=== PATIENT | male | born 1950 | race Caucasian/White ===

== ENCOUNTER → 2023-05-31 15:23 | Outpatient (REF) | payer MEDICARE, SELFPAY ==
[2023-05-31 19:41] LABS: Urine Albumin Negative (Neg - Trace); Urine Bilirubin Negative (Negative); Urine Character Clear (Clear); Urine Color Yellow; Urine Glucose Negative (Negative); Urine Ketone Negative (Negative); Urine Leukocyte Negative (Negative); Urine Nitrite Negative (Negative); Urine Occult Blood Negative (Negative); Urine Urobilinogen Negative (Neg - 1+)
== END ==
LOC: CLAB 15:23
PROVIDERS: ATTENDING PHYSICIAN Family Medicine
DX: N39.0 Urinary tract infection, site not specified (principal)
CPT/HCPCS: 81003

== ENCOUNTER → 2023-07-26 17:10 | Outpatient (REF) | payer MEDICARE, SELFPAY | LOC: REG 17:10 | PROVIDERS: ATTENDING PHYSICIAN Urology; FAMILY PHYSICIAN Family Medicine | DX: R97.20 Elevated prostate specific antigen [PSA] (principal) | CPT/HCPCS: 84153; 84154 ==

== ENCOUNTER → 2023-09-18 15:06 | Emergency (ER) | payer MEDICARE, SELFPAY ==
[2023-09-18 15:12] VITALS: BP 179/75
[2023-09-18 15:29] LABS: % Basophils 0.6 % (0-2); % Eosinophils 1.9 % (0-6); % Immature Granulocytes 0.4 % (0-0.5); % Lymphocytes 24.4 % (20.5-51.1); % Monocytes 11.9 % (1.7-9.3); % Neutrophils 60.8 % (42.2-75.2); Absolute Basophils 0.1 10^3/uL (0-0.2); Absolute Eosinophils 0.2 10^3/uL (0-0.7); Absolute Immature Granulocytes 0.1 10^3/uL (0-0.05); Absolute Lymphocytes 2.9 10^3/uL (1.2-3.4); Absolute Monocytes 1.4 10^3/uL (0.1-0.6); Absolute Neutrophils 7.3 10^3/uL (1.4-6.5); Hematocrit 29.2 % (39.0-52.0); Hemoglobin 9.4 g/dL (13.0-18.0); Mean Corp Hgb Conc. 32.2 g/dL (33.0-37.0); Mean Corpuscular Hgb 25.5 pg (27.0-31.0); Mean Corpuscular Volume 79.1 fL (80.0-94.0); Mean Platelet Volume 8.6 fL (7.4-10.4); Nucleated Red Blood Cells % 0 % (-); Platelet Count 312 10^3/uL (130-400); Red Blood Cell Count 3.69 10^6/uL (4.70-6.10); Red Cell Dist. Width 15.1 % (11.5-14.5); White Blood Cell Count 12.1 10^3/uL (4.8-10.8)
[2023-09-18 15:45] LABS: Erythrocyte Sed Rate 41 mm/hour (0-20)
--- NOTE | 2023-09-18 16:07 | ED.MUSCINJ ---
HPI-Injury
General
Chief Complaint: Musculo-Skeletal Complaint
Source: patient
Exam Limitations: none
Time Seen by Provider: 09/18/23 15:46
Nursing documentation reviewed up to this point in time: agreed with
History of Present Illness-Injury
Initial Injury comments:
73 yo male with hx of HTN, bilateral leg chronic wounds, presents for gradually increasing swelling and pain right knee. Denies fever/chills.
He also states over past week, he has had redness and swelling and pain in right hand with history of gout
Past History
Past History
ED Past Medical History: Cancer (skin cancer left calf), HTN and Other (PVDm Bilateral lower leg wounds)
ED Past Surgical History: Orthopedic (Right knee surgery) and Other (Right facial reconstructioin)
Social History
Tobacco: Former smoker
Alcohol: Daily (Beer 5)
Drug: None
Personal: Other (Seperated)
Living: alone
Employment: Employed
Review of Systems
Review of Systems
Allergies reviewed?: Yes
All Other Systems: ROS reviewed and negative except as documented in HPI and ROS
Constitutional: Denies fever or chills
Musculoskeletal: Reports other (Right knee pain and swelling)
Skin: Reports other (Chronic bilateral lower extremity wounds dressings intact)
Phy Exam
Physical Exam
Physical Exam:
PHYSICAL EXAMINATION:
General: no apparent distress, not acutely ill
Neuro: alert and oriented.
Psychiatric: well kept. interactive and cooperative
Musculoskeletal: Moves with ease. Limited range of motion of right knee, significant swelling, no redness or warmth. Mild swelling right hand fingers, mild erythema, tenderness. few tophus protrusions. Distal n/v intact.
Skin: Warm, pink.. Both lower legs are wrapped in dressings
Injury Course
Orders/Labs/Results
Orders:
Orders
09/18/23 15:15
CR Knee- Right 4 Or More View* Urgent
Comment:
Reason For Exam: pain
09/18/23 15:21
Complete Blood Count/With Diff Urgent
Comprehensive Metabolic Panel Urgent
Sed Rate [Erythrocyte Sed Rate] Urgent
Uric Acid Urgent
09/18/23 16:12
Body Fluid Cell Count Urgent
What is the Body Fluid: joint
Date Specimen was Collected: 09/18/23
Time Specimen was Collected: 16:07
Comment: with DIFF
Body Fluid Crystals Urgent
What is the Body Fluid: joint
Date Specimen was Collected: 09/18/23
Time Specimen was Collected: 16:07
Body Fluid Glucose Urgent
Fluid Source: Other
Other Source: R knee
Date Specimen was Collected: 09/18/23
Time Specimen was Collected: 16:08
Fluid Culture with Gram Stain Urgent
EUGENIO Source: Joint Fluid
Specimen Description:
Date Specimen was Collected: 09/18/23
Time Specimen was Collected: 16:08
09/18/23 16:27
Knee Immobilizer Right-Treatme ONCE
09/18/23 17:49
Colchicine 1.2 mg PO NOW STA
Abnormal Lab Results
09/18/23
15:21
WBC 12.1 H 10^3/uL
(4.8-10.8)
RBC 3.69 L 10^6/uL
(4.70-6.10)
Hgb 9.4 L g/dL
(13.0-18.0)
Hct 29.2 L %
(39.0-52.0)
MCV 79.1 L fL
(80.0-94.0)
MCH 25.5 L pg
(27.0-31.0)
MCHC 32.2 L g/dL
(33.0-37.0)
RDW 15.1 H %
(11.5-14.5)
Abs Immat Gran (auto) 0.1 H 10^3/uL
(0-0.05)
Absolute Neuts (auto) 7.3 H 10^3/uL
(1.4-6.5)
Absolute Monos (auto) 1.4 H 10^3/uL
(0.1-0.6)
Monocytes % 11.9 H %
(1.7-9.3)
ESR 41 H mm/hour
(0-20)
Sodium 129 L mmol/L
(135-145)
Glucose 141 H mg/dl
(70-99)
Total Protein 5.8 L g/dl
(6.3-8.2)
Albumin 3.3 L g/dl
(3.5-5.0)
09/18/23 15:21
09/18/23 15:21
Procedures
Incision/Drainage/Joint Aspiration
Right Lateral Knee:
Anethesia: 1% Lidocaine with Epi
Preparation: cleaned with alcohol wipe
Type of procedure: aspiration
Nature of site: other (suprapatellar effusion)
How much fluid was obtained?: number in mls (120)
Fluid description: straw colored
Treatment: bandaid applied
MDM/Problems Addressed
Differential Diagnosis Includes:
Osteoarthritis, gout, septic joint
MDM/Problems Addressed:
73 yo male with hx of HTN, bilateral leg chronic wounds, presents for gradually increasing swelling and pain right knee. Denies fever/chills.
He also states he has had swelling, redness and pain in his right hand. History of gout.
Xray R knee: Initially read by this examiner: Large suprapatellar effusion
4:12 PM:
CBC: WBC 12.1. Hemoglobin 9.4, his baseline
CMP:unremarkable
ESR: Mildly elevated at 41
Uric acid WNL
5:30 p.m.
After draining knee, able to bend with ease, no redness or warmth, do not suspect septic joint.
Knee joint fluid results consistent with inflammation, not infection. Monosodium urate crystals present.
Pt taking Allopurinol daily for gout
Will add colchicine
Kai wrap applied, referred to Rheumatology for gout, orthopedics for knee effusion.
Pt ambulated out with mild limp, declined wheelchair.
*Critical Care Note
Total Time (30-74mins, 75-104mins- exclusive of procedures): Not Applicable
ED Attending Note
-
Portions of this chart may have been created with voice recognition software.� Occasional wrong word or��sound alike� substitutions may have occurred due to the inherent limitations of voice recognition software.
Discharge Plan
Departure
Patient Disposition: Home (Routine Discharge)
Date of Disposition: 09/18/23
Time of Disposition: 17:49
Patient with high blood pressure during this ER visit?: Yes
Condition: Good
Discharge Problem:
Effusion of right knee, Gout
Instructions: Knee Immobilizer (DC), Low Purine Diet, Swollen Joints (DC), Gout ED
Prescriptions:
New
colchicine 0.6 mg capsule
0.6 mg PO BID Qty: 20 0RF
No Action
aspirin 81 mg Tablet,Delayed Release (Dr/Ec)
81 mg PO DAILY Qty: 90 0RF
atenolol 50 mg Tablet
50 mg PO DAILY
therapeutic multivitamin Tablet
1 tab PO DAILY
ascorbic acid (vitamin C) [Vitamin C] 500 mg Tablet
500 mg PO DAILY
clobetasol 0.05 % Ointment
1 applic TOPICAL BID
Patient Comments:
02/06/23 patient applies ointment to the outer area of the wound on both legs.
rosuvastatin 40 mg Tablet
40 mg PO DAILY
gabapentin 400 mg Capsule
400 mg PO TID 30 Days Qty: 90 0RF
cephalexin 500 mg Capsule
500 mg PO QID 5 Days Qty: 20 0RF
losartan 25 mg Tablet
25 mg PO DAILY 30 Days Qty: 30 0RF
prednisone 10 mg Tablet
See Rx Instructions .ROUTE .COMPLEX Qty: 36 0RF
Rx Instructions:
Take By Mouth:
20 mg daily x13 days, 10 mg daily till seen by rheum
cephalexin 500 mg capsule
500 mg PO TID 5 Days Qty: 15 0RF
Referrals:
Yasmani Castillo MD [Active] - Call in 1-3 days for appt
Norma Cortez DO [Family Provider] -
Lamont Cooley MD [Active] - Next open appointment
Stand Alone Forms: Return to Work
Activity Restrictions/Additional Instructions:
As we discussed, wear the knee immobilizer when up and around until your knee feels better. You may remove it at bedtime.
If the knee feels a lot better you can stop wearing it.
See the orthopedic doctor for recheck in 7-14 days.
Rest with the foot elevated to the level of your heart as much as you can in the next 2 days.
I sent a prescription for Colchicine to your pharmacy. Pick it up today and take one pill this evening. Then take it twice a day until the flare improves
Call and make appointment with the Chief Technician [facility] for your gout.
Interventions
Interventions:
*Risk Screen - Suicide Last Done: 09/18/23 15:12
*General Assessment Last Done: 09/18/23 15:12
*Neglect/Abuse Screening Last Done: 09/18/23 15:12
Discharge Date and Time
Print Language: TURKMEN
[2023-09-18 16:09] LABS: ALT (SGPT) 11 U/L (0-50); AST (SGOT) 25 U/L (17-59); Albumin 3.3 g/dl (3.5-5.0); Alkaline Phosphatase 88 U/L (38-126); Blood Urea Nitrogen 9 mg/dl (9-20); Calcium 9.1 mg/dl (8.4-10.2); Carbon Dioxide 24 mmol/L (22-30); Chloride 98 mmol/L (98-107); Glucose 141 mg/dl (70-99); Potassium 4.3 mmol/L (3.5-5.1); Sodium 129 mmol/L (135-145); Total Bilirubin 0.9 mg/dl (0.2-1.3); Total Protein 5.8 g/dl (6.3-8.2); Uric Acid 4.6 mg/dl (3.5-8.5); eGFR > 60.00
[2023-09-18 16:44] LABS: Body Fluid Glucose 90 mg/dl
[2023-09-18 16:51] LABS: Body Fluid WBC 41200 /CUMM
[2023-09-18 16:52] LABS: Body Fluid Mononuclear 7.7 %; Body Fluid Polymorphonuclear 92.3 %
[2023-09-18 16:55] LABS: Body Fluid Second Tech FB
[2023-09-18] MEDS: COLCHICINE 1.19999999999999996 MG PO (17:55)
== END | disposition home or self-care (01) ==
LOC: EMR 15:06
PROVIDERS: Emergency Medicine; Registered Nurse; FAMILY PHYSICIAN Family Medicine
DX: M25.461 Effusion, right knee (principal); M25.561 Pain in right knee; M79.641 Pain in right hand; M10.9 Gout, unspecified; I10 Essential (primary) hypertension; D89.89 Other specified disorders involving the immune mechanism, not elsewhere classified; Z87.891 Personal history of nicotine dependence; Z85.828 Personal history of other malignant neoplasm of skin; Z88.6 Allergy status to analgesic agent; Z88.8 Allergy status to other drugs, medicaments and biological substances
CPT/HCPCS: 20610; 99283; 73564; 80053; 82945; 84550; 85025; 85652; 87015; 87070; 87205; 89051; 89060

== ENCOUNTER 2023-10-15 15:50 | Emergency (ER) | payer MEDICARE, SELFPAY ==
[2023-10-15 15:53] VITALS: BP 165/81
--- NOTE | 2023-10-15 17:32 | ED.MUSCINJ ---
HPI-Injury
General
Chief Complaint: Musculo-Skeletal Complaint
Source: patient
Exam Limitations: none
Time Seen by Provider: 10/15/23 16:00
Nursing documentation reviewed up to this point in time: agreed with
History of Present Illness-Injury
Initial Injury comments:
73 yo male with recurrent right knee effusion here requesting drainage. Last drained by this examiner. No known injury. Did not follow up with orthopedics since last effusion.
Denies fever.
Hx PVD with significant bilateral LE wounds followed at [facility].
Past History
Past History
ED Past Medical History: Cancer (skin cancer left calf), HTN and Other (PVDm Bilateral lower leg wounds)
ED Past Surgical History: Orthopedic (Right knee surgery) and Other (Right facial reconstructioin)
Social History
Tobacco: Former smoker
Alcohol: Daily (Beer 5)
Drug: None
Personal: Other (Seperated)
Living: alone
Employment: Employed
Review of Systems
Review of Systems
Allergies reviewed?: Yes
All Other Systems: ROS reviewed and negative except as documented in HPI and ROS
Constitutional: Denies fever
Musculoskeletal: Reports joint swelling (right knee)
Skin: Reports other (chronic bilateral LE wounds)
Musculoskeletal Injury Exam
Musculoskeletal Injury Exam
Right Knee:
Pain with Movement?: Moderate
Tender to palpation?: Moderate
Soft tissue swelling?: Moderate
Joint effusion?: Moderate
Joint instability?: No
Range of motion: Limited
Distal skin color and temperature: normal-warm & good color (Chronic bilateral lower extremity wounds.)
Capillary Refill: normal
Normal distal neurovascular exam?: Yes
Phy Exam
Physical Exam
Physical Exam:
PHYSICAL EXAMINATION:
General: no apparent distress, not acutely ill
Neuro: alert and oriented.
Psychiatric: well kept. interactive and cooperative
Musculoskeletal: Right knee moderate swollen, tender, no redness or warmth. Patient is ambulating well.
Skin: Warm, pink. Both lower extremities are wrapped with special treatments for chronic leg wounds.
Procedures
Incision/Drainage/Joint Aspiration
Right Lateral Knee:
Anethesia: 1% Lidocaine with Epi
Preparation: cleaned with alcohol wipe
Type of procedure: drain
Description of abscess: involves one area
How much fluid was obtained?: number in mls (65)
Fluid description: clear and straw colored
Treatment: bandaid applied (Kai wrap applied)
MDM/Problems Addressed
Differential Diagnosis Includes:
inflammatory vs infection knee effusion
MDM/Problems Addressed:
73 yo male with recurrent right knee effusion here requesting drainage. Last drained by this examiner. No known injury. Did not follow up with orthopedics since last effusion.
Denies fever.
Hx PVD with significant bilateral LE wounds followed at [facility].
Afebrile
Patient tolerated procedure well. Kai wrap applied. Patient ambulated out at discharge.
The knee fluid was clear straw-colored. This examiner drained his knee on 09/17 and the fluid was inflammatory, no infectious, no infectious symptoms now, no need to repeat fluid evaluation.
*Critical Care Note
Total Time (30-74mins, 75-104mins- exclusive of procedures): Not Applicable
ED Attending Note
-
Portions of this chart may have been created with voice recognition software.� Occasional wrong word or��sound alike� substitutions may have occurred due to the inherent limitations of voice recognition software.
Discharge Plan
Departure
Patient Disposition: Home (Routine Discharge)
Date of Disposition: 10/15/23
Time of Disposition: 16:39
Patient with high blood pressure during this ER visit?: No
Condition: Fair
Discharge Problem:
Effusion of right knee
Prescriptions:
No Action
aspirin 81 mg Tablet,Delayed Release (Dr/Ec)
81 mg PO DAILY Qty: 90 0RF
atenolol 50 mg Tablet
50 mg PO DAILY
therapeutic multivitamin Tablet
1 tab PO DAILY
ascorbic acid (vitamin C) [Vitamin C] 500 mg Tablet
500 mg PO DAILY
clobetasol 0.05 % Ointment
1 applic TOPICAL BID
Patient Comments:
02/06/23 patient applies ointment to the outer area of the wound on both legs.
rosuvastatin 40 mg Tablet
40 mg PO DAILY
gabapentin 400 mg Capsule
400 mg PO TID 30 Days Qty: 90 0RF
cephalexin 500 mg Capsule
500 mg PO QID 5 Days Qty: 20 0RF
losartan 25 mg Tablet
25 mg PO DAILY 30 Days Qty: 30 0RF
prednisone 10 mg Tablet
See Rx Instructions .ROUTE .COMPLEX Qty: 36 0RF
Rx Instructions:
Take By Mouth:
20 mg daily x13 days, 10 mg daily till seen by rheum
cephalexin 500 mg capsule
500 mg PO TID 5 Days Qty: 15 0RF
colchicine 0.6 mg capsule
0.6 mg PO BID Qty: 20 0RF
Referrals:
Yasmani Castillo MD [Active] - Next open appointment
Norma Cortez DO [Family Provider] -
Activity Restrictions/Additional Instructions:
As we discussed, wear the Kai wrap as needed for swelling.
Make appointment to see the orthopedic doctor within the next couple of weeks.
Interventions
Interventions:
*Nursing Disposition Last Done: 10/15/23 17:04
Discharge Date and Time
Discharge Date/Time: 10/15/23 17:05
Print Language: [place]AST [place]
== END 2023-10-15 17:05 | disposition home or self-care (01) ==
LOC: EMR 15:50
PROVIDERS: EMERGENCY PHYSICIAN Emergency Medicine; FAMILY PHYSICIAN Family Medicine
DX: M25.461 Effusion, right knee (principal); I10 Essential (primary) hypertension; Z85.828 Personal history of other malignant neoplasm of skin; Z87.891 Personal history of nicotine dependence
CPT/HCPCS: 99282; 20610

== ENCOUNTER 2023-11-13 02:00 | Inpatient (IN) | payer MEDICARE, SELFPAY ==
[2023-11-12 22:39] VITALS: BMI 29.3
[2023-11-12 22:42] VITALS: BP 163/71
--- NOTE | 2023-11-12 22:56 | ED.GENMED ---
History of Present Illness
General
Chief Complaint: Fall
Source: patient and previous hospital records (Previous ED visits, twice in September with complaints of recurrent right knee effusion requiring arthrocentesis. Knee effusion related to gout flare)
Exam Limitations: none
Time Seen by Provider: 11/12/23 22:53
Nursing documentation reviewed up to this point in time: agreed with
History of Present Illness
History of Present Illness:
This is a 73-year-old gentleman with history of hypertension, gout, peripheral vascular disease with chronic ulcerated wounds and chronic edema bilateral lower extremities. Follows with specialist at [place]. 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 and while on duty tonight he states he slipped on a wet patch in a hallway, fell onto his right side injuring his right hip. He also states he struck the top of his head perhaps on the wall but admits this was a glancing blow. No loss of
consciousness. He complains of severe pain right hip, unable to sit up or stand. He denies back pain or neck pain, denies headache, no chest pain or abdominal pain. Right hip pain is worse with attempting to reposition from his right side to
supine, worse with movement of his right hip. His position of comfort is lying on his right side.
No prior history of hip problems.
He denies blood thinners including denies taking aspirin, anticoagulants, antiplatelet medications.
He is currently taking 2 different antibiotics for more recent progression of bilateral lower extremity nonhealing ulcerated wounds. He started these antibiotics perhaps 1-1/2 weeks ago and does admit to moderate improvement especially over the
past 1 to 2 days. He has not had a fever.
He is due for follow-up with his specialist at [place] this week.
Past History
Past History
ED Past Medical History: Cancer (skin cancer left calf), HTN, Other (PVD Bilateral lower leg wounds, peripheral neuropathy, chronic peripheral edema) and Other (Gout)
ED Past Surgical History: Orthopedic (Right knee surgery) and Other (Right facial reconstructioin)
Social History
Tobacco: Former smoker
Alcohol: Daily (Beer 5)
Drug: None
Personal: Other (Seperated)
Living: alone
Employment: Employed ([employer])
Family History
Family History: Other (Noncontributory)
Phy Exam
Physical Exam
Physical Exam:
GENERAL: 73-year-old overweight gentleman appears his stated age. Lying supine partially on his right side, position of comfort. Appears in moderate distress related to pain. Easily communicative.
EYE: pupils equal and reactive. Extraocular muscles intact. The head is normocephalic, atraumatic.
NECK: Supple, no midline bony tenderness. Full range of motion without difficulty nor pain.
ENT: posterior pharynx is clear, oral mucosa is moist. No rhinorrhea, no epistaxis.
CARDIAC: Regular rate and rhythm. no murmur.
LUNGS: Clear breath sounds bilaterally, no acute respiratory distress, no wheezes/rales/rhonchi
ABDOMEN: Rotund, soft, nondistended, without focal tenderness, no r/g, no cvat. normoactive BS.
BACK: No midline bony tenderness. No palpable bony pelvic tenderness.
NEUROLOGICAL: Alert and oriented x3, no focal neuro deficits.
SKIN: Warm and dry, normal color, venous stasis ulcers bilateral lower legs.
MUSCULOSKELETAL: Severe pain about right hip with markedly reduced range of motion of hip related to pain. Chronic venous stasis edema bilateral lower extremities with venous stasis ulcers bilateral lower legs.
PSYCH: Normal and appropriate interaction.
Course
Orders/Labs/Results
Orders:
Orders
11/12/23 22:55
Urinalysis Reflex To Culture Urgent
HYDROmorphone [Dilaudid] 0.5 mg IV NOW STA
CR Hip - RT w/wo Pel 2-3 Vw* Urgent
Comment:
Reason For Exam: fall, right lat hip pain
Include a pelvis x-ray?: Yes
11/12/23 23:08
Type+Screen Urgent
Complete Blood Count/With Diff Urgent
Comprehensive Metabolic Panel Urgent
PTT Urgent
Prothrombin Time Urgent
11/12/23 23:11
EKG [Electrocardiogram (*1)] Urgent
Reason for Study: Vertigo / Dizzy
EKG- Treatment ONCE
Abnormal Lab Results
11/12/23
23:08
WBC 13.8 H 10^3/uL
(4.8-10.8)
RBC 3.56 L 10^6/uL
(4.70-6.10)
Hgb 9.0 L g/dL
(13.0-18.0)
Hct 27.2 L %
(39.0-52.0)
MCV 76.4 L fL
(80.0-94.0)
MCH 25.3 L pg
(27.0-31.0)
RDW 18.0 H %
(11.5-14.5)
Abs Immat Gran (auto) 0.1 H 10^3/uL
(0-0.05)
Absolute Neuts (auto) 8.6 H 10^3/uL
(1.4-6.5)
Absolute Lymphs (auto) 3.6 H 10^3/uL
(1.2-3.4)
Absolute Monos (auto) 1.2 H 10^3/uL
(0.1-0.6)
Immature Gran % 0.7 H %
(0-0.5)
APTT 35.9 H Sec
(23.4-35.0)
Sodium 131 L mmol/L
(135-145)
Total Protein 5.8 L g/dl
(6.3-8.2)
Albumin 3.3 L g/dl
(3.5-5.0)
11/12/23 23:08
11/12/23 23:08
Vital Signs
Initial and Last Documented VS:
Initial Vital Signs
Temp Pulse Resp BP Pulse Ox
97.6 F 81 18 163/71 100
11/12/23 22:42 11/12/23 22:42 11/12/23 22:42 11/12/23 22:42 11/12/23 22:42
Last Documented Vital Signs
Temp Pulse Resp BP Pulse Ox
97.6 F 80 9 165/66 99
11/12/23 22:42 11/13/23 00:00 11/13/23 00:00 11/13/23 00:00 11/13/23 00:00
MDM/Problems Addressed
Differential Diagnosis Includes:
Significant concern for right hip fracture/pelvis fracture.
Admits to striking his head but mildly and no evidence of scalp trauma. Not maintained on anticoagulants. No loss of consciousness. No focal neurodeficit. No indication for CT of the head.
Will medicate for pain and plan for right hip/pelvis x-ray.
Chronic conditions affecting care: Other (Chronic venous stasis ulcers bilateral lower extremities.)
*Radiology
Radiology exam reviewed: radiology read reviewed
*Pulse Oximetry
Patient hypoxic: no
*EKG
Interpreted by ED Provider?: Yes
Comparison EKG: no comparison EKG present
Rate: normal
Rhythm: sinus
[place]: normal axis
Interval: normal interval
QRS Pattern: normal QRS
Ischemia: no ischemia
*Critical Care Note
Total Time (30-74mins, 75-104mins- exclusive of procedures): Not Applicable
Update Note
Update Note:
X-ray shows right hip fracture.
Will admit to hospitalist service and plan for orthopedic consult.
Orthopedics notified via [place] text.
ED Attending Note
-
Portions of this chart may have been created with voice recognition software.� Occasional wrong word or��sound alike� substitutions may have occurred due to the inherent limitations of voice recognition software.
Discharge Plan
Departure
Patient Disposition: Admit
Date of Disposition: 11/13/23
Time of Disposition: 00:41
Admit to doctor: Danny
Presentation/result/management discussed w/ accepting MD/DO: Hospitalist
Condition: Fair
Discharge Problem:
Closed fracture of right hip, Chronic venous stasis ulcers b/l LE's
Prescriptions:
No Action
aspirin 81 mg Tablet,Delayed Release (Dr/Ec)
81 mg PO DAILY Qty: 90 0RF
atenolol 50 mg Tablet
50 mg PO DAILY
therapeutic multivitamin Tablet
1 tab PO DAILY
ascorbic acid (vitamin C) [Vitamin C] 500 mg Tablet
500 mg PO DAILY
clobetasol 0.05 % Ointment
1 applic TOPICAL BID
Patient Comments:
02/06/23 patient applies ointment to the outer area of the wound on both legs.
rosuvastatin 40 mg Tablet
40 mg PO DAILY
gabapentin 400 mg Capsule
400 mg PO TID 30 Days Qty: 90 0RF
cephalexin 500 mg Capsule
500 mg PO QID 5 Days Qty: 20 0RF
losartan 25 mg Tablet
25 mg PO DAILY 30 Days Qty: 30 0RF
prednisone 10 mg Tablet
See Rx Instructions .ROUTE .COMPLEX Qty: 36 0RF
Rx Instructions:
Take By Mouth:
20 mg daily x13 days, 10 mg daily till seen by rheum
cephalexin 500 mg capsule
500 mg PO TID 5 Days Qty: 15 0RF
colchicine 0.6 mg capsule
0.6 mg PO BID Qty: 20 0RF
Interventions
Interventions:
*Risk Screen - Suicide Last Done: 11/12/23 22:42
*General Assessment Last Done: 11/12/23 22:42
*Neglect/Abuse Screening Last Done: 11/12/23 22:42
ED- Fall Risk Assessment Last Done: 11/12/23 22:42
*ED COVID-19 Vaccine History Last Done: 11/12/23 22:42
ED-Musculoskeletal Assessment Last Done: 11/12/23 22:50
ED- Neurological Assessment Last Done: 11/12/23 22:50
Discharge Date and Time
Print Language: SETS[place]
[2023-11-12] MEDS: DILAUDID 0.5 MG IV (23:15)
[2023-11-12 23:19] LABS: % Basophils 0.5 % (0-2); % Eosinophils 2.7 % (0-6); % Immature Granulocytes 0.7 % (0-0.5); % Lymphocytes 25.8 % (20.5-51.1); % Monocytes 8.5 % (1.7-9.3); % Neutrophils 61.8 % (42.2-75.2); Absolute Basophils 0.1 10^3/uL (0-0.2); Absolute Eosinophils 0.4 10^3/uL (0-0.7); Absolute Immature Granulocytes 0.1 10^3/uL (0-0.05); Absolute Lymphocytes 3.6 10^3/uL (1.2-3.4); Absolute Monocytes 1.2 10^3/uL (0.1-0.6); Absolute Neutrophils 8.6 10^3/uL (1.4-6.5); Hematocrit 27.2 % (39.0-52.0); Mean Corp Hgb Conc. 33.1 g/dL (33.0-37.0); Mean Corpuscular Hgb 25.3 pg (27.0-31.0); Mean Corpuscular Volume 76.4 fL (80.0-94.0); Mean Platelet Volume 8.3 fL (7.4-10.4); Nucleated Red Blood Cells % 0 % (-); Platelet Count 313 10^3/uL (130-400); Red Blood Cell Count 3.56 10^6/uL (4.70-6.10); White Blood Cell Count 13.8 10^3/uL (4.8-10.8)
[2023-11-12 23:29] LABS: INR 1.13; PT 14.4 Sec (11.4-14.6)
[2023-11-12 23:30] LABS: ALT (SGPT) 12 U/L (0-50); APTT 35.9 Sec (23.4-35.0); AST (SGOT) 31 U/L (17-59); Albumin 3.3 g/dl (3.5-5.0); Alkaline Phosphatase 103 U/L (38-126); Blood Urea Nitrogen 11 mg/dl (9-20); Calcium 9.1 mg/dl (8.4-10.2); Carbon Dioxide 22 mmol/L (22-30); Chloride 99 mmol/L (98-107); Estimated Creatinine Clearance 70 ml/min; Glucose 93 mg/dl (70-99); Potassium 4.6 mmol/L (3.5-5.1); Sodium 131 mmol/L (135-145); Total Bilirubin 0.4 mg/dl (0.2-1.3); Total Protein 5.8 g/dl (6.3-8.2); eGFR > 60.00
[2023-11-13] VITALS (11 sets, daily range): BP systolic 138–207; BP diastolic 60–95; BMI 27.3
--- NOTE | 2023-11-13 01:48 | HPS.HSE ---
Family Physician
-
Family Physician: Norma Cortez
Chief Complaint
-
Fall, R Hip Pain
History of Present Illness
Patient is a 73y M with PMH significant for chronic venous stasis disease with b/l LE wounds who presents to ED for evaluation after trip and fall this evening. 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
'step down'. He lost his balance and fell. He notes that he hit his head on the wall and landed hard on his R side. He did not lose consciousness. He states that the head impact was a 'glancing blow'. He denies any prodrome of chest pain,
lightheadedness, dizziness, etc.
Patient had significant pain in the R hip after the fall. He was brought to the ED for evaluation where x-rays reveal R hip fracture.
Patient has medical history significant for chronic venous stasis with bilateral LE wounds / venous stasis skin changes.
He is followed by [facility] at [facility].
He had extensive surgery in June 2023 including 5 surgeries (debridement / grafting) in one week. He did require blood transfusion during that hospital stay.
Patient is seen by [facility] weekly. He has dressings replaced once a week at the wound car center. he is due for his next dressing change on Monday.
Patient states that he had significant malodorous drainage about 2 weeks ago. He was started on abx at the wound care center and he remains on them at present.
He cannot recall the names of the abx.
Patient does state that his wounds / symptoms have been improving on these abx.
Medical History
Past Medical History
Past Medical History: Reports Other
Additional Past Medical History:
Chronic Venous Stasis Skin Changes / Ulcerations
ASCVD / PAD
Peripheral Neuropathy
Hypertension
Skin Cancer
Venous Insufficiency
Past Surgical History: Reports Other
Additional Past Surgical History:
Facial Reconstruction
Vein Stripping
LE Debridement / Skin Grafting (June 2023)
Skin Cancer Excision
Social History
Tobacco: Former Smoker (Quit smoking about 40 years ago. Approx 20 pack years total use.)
Alcohol: Daily (Nearly daily EtOH use. Several beers on average.)
Drug: None
Family History
Family History: Other (PGM - DM)
Allergies / Home Medications
Allergies reflects when Allergies were last updated in [facility].
Home Medications with original date entered in [facility]
Allergy/Medication List:
Allergies
Allergy/AdvReac Type Severity Reaction Status Date / Time
acetaminophen Allergy Swelling Verified 11/12/23 22:41
[From Excedrin Extra
Strength]
aspirin Allergy Swelling Verified 11/12/23 22:41
[From Excedrin Back and Body]
caffeine Allergy Swelling Verified 11/12/23 22:41
[From Excedrin Extra
Strength]
calcium carbonate Allergy Unknown Verified 11/12/23 22:41
[From Excedrin Back and Body]
Home Medications
ascorbic acid (vitamin C) 500 mg tablet (Vitamin C) 500 mg PO DAILY Supplement 02/06/23
therapeutic multivitamin 1 tab PO DAILY Supplement 02/06/23
gabapentin 400 mg capsule 600 mg PO DAILY 11/13/23
ibuprofen 200 mg tablet 200 mg PO Q6H PRN increased pain 11/13/23
Review of Systems
-
History Source: Patient
A 12 point ROS was completed and negative except as noted: Yes
Constitutional: Denies Fever, Fatigue or Chills
EENT: Denies Sore Throat
Respiratory: Denies Cough or Trouble Breathing
Cardiac: Denies Chest Pain or Palpitations
Abdomen/GI: Denies Abdominal Pain, Nausea, Vomiting, Diarrhea, Bloody Stools or Black Stools
: Denies Dysuria, Frequency or Flank Pain
Musculoskeletal: Reports Joint Pain and Edema
Skin: Reports Other (Wounds b/l LEs)
Neurological: Denies Dizzy or Headache
Psych: Denies Depression or Anxiety
Physical Exam
Vital Signs
Vital Signs
Temp Pulse Resp BP Pulse Ox
97.6 F 80 9 165/66 99
11/12/23 22:42 11/13/23 00:00 11/13/23 00:00 11/13/23 00:00 11/13/23 00:00
Physical Exam
General: Other (73y M in mild distress due to hip pain.)
HEENT: Moist mucous membranes and PERRLA
Respiratory: Clear; No Wheezes, Rales or Rhonchi
Cardiac: S1/S2 and Regular Rhythm; No Murmur
GI: Soft, Non Tender, Non Distended and Normal Bowel Sounds
Musculoskeletal: Other (RLE externally rotated.)
Skin: Other (Chronic venous stasis skin changes of b/l LEs. Evident areas of ulceration medial ankles and posterior R calf. Dressings not removed.)
Neuro: AO x 3
Laboratory Results
-
11/12/23 23:08
11/12/23 23:08
Laboratory Results
PT 14.4 Sec (11.4-14.6) 11/12/23 23:08
INR 1.13 11/12/23 23:08
APTT 35.9 Sec (23.4-35.0) H 11/12/23 23:08
Total Bilirubin 0.4 mg/dl (0.2-1.3) 11/12/23 23:08
AST 31 U/L (17-59) 11/12/23 23:08
ALT 12 U/L (0-50) 11/12/23 23:08
Alkaline Phosphatase 103 U/L (38-126) 11/12/23 23:08
Impression/Plan
-
A/P: Patient is a 73y M with PMH significant for venous insufficiency and chronic venous stasis skin changes / wound presents to ED after trip and fall with R hip pain.
Right Hip Fracture
- Admit for further evaluation and treatment.
- Pain control, NWB, supportive care overnight.
- Ortho eval in the AM for eventual operative repair.
- Increased risk for complications on the basis of chronic wounds, HTN and anemia.
- Address these issues as noted below.
- Benefits of planned procedure outweigh the potential risks and patient OK to proceed with OR without additional pre-op evaluation(s).
- Post-Op DVT prophylaxis, PT / OT, pain control, etc per Ortho.
Mechanical Fall
- Patient lost his balance when he stepped off a step that he did not know was there.
- No suspicious prodrome, LOC, etc.
- Mild head impact. No current symptoms / complaints in this regard.
- Consider EX[employer] imaging if any changes develop - but low suspicion.
Venous Insufficiency
Chronic Venous Stasis Skin Changes
Chronic B/L LE Wounds
- Recent increase in symptoms improving on PO abx per patient.
- Will cover with IV Vanco / Zosyn for now as patient does not recall current meds.
- Continue abx perioperatively.
- Wound Care evaluation for local care during hospital stay.
- Follow-up with usual wound care physician at [facility] after discharge.
Benign Hypertension
- Patient reports prior h/o hypertension.
- Placed on BP meds but stopped these once his BP improved.
- Pursue adequate pain control.
- IV Hydralazine PRN.
- Suspect he will benefit from standing BP medications to maintain normotension.
Normocytic Anemia
- Hgb = 9 and has been in this range since early 2023.
- Had significant surgery at [facility] in June 2023 and required blood products during that stay.
- No report of any evident blood loss, melena, etc per patient.
- He does take ibuprofen approx 1200mg daily and drinks alcohol on a near-daily basis.
- Heme test stools. PPI daily.
- Check iron studies, etc and replace if needed.
- Consented for blood transfusion which he may require perioperatively.
ASCVD / PAD
- Patient has history of LOS to the [facility].
- He is not currently on ASA - apparently due to allergy.
- No complaints of chest pain. No history of heart disease specifically.
DVT Prophylaxis
- Patient is at elevated risk for DVT given chronic venous disease, LE wounds, injury, immobility, etc.
- No mechanical devices given his LE wounds.
- Hold pharmacologic prophylaxis for now given planned surgery.
- Would recommend pharmacologic prophylaxis be started GERALD post-op when OK with Ortho.
Code Status: Full
[2023-11-13] MEDS: DILAUDID 0.5 MG IV ×4 (02:02→21:30)
--- NOTE | 2023-11-13 04:00 | PTCARENOTE ---
Pt admitted to room 2138 from ED, aaox3, pulled to bed from stretcher with assist x4. Medicated for pain 10/ from R hip. Pt oriented to room and call light. Bladder scanned for 723 cc, unable to void after multiple attempts. Straight cath x1 for
700cc, urine sample collected and sent to lab.
[2023-11-13] MEDS: VANCOCIN 540 MG IV (04:05)
[2023-11-13 05:03] LABS: Urine Albumin Negative (Neg - Trace); Urine Bilirubin Negative (Negative); Urine Character Clear (Clear); Urine Color Yellow; Urine Glucose Negative (Negative); Urine Ketone Trace (Negative); Urine Leukocyte Negative (Negative); Urine Nitrite Negative (Negative); Urine Occult Blood Negative (Negative); Urine Specific Gravity 1.015 (<1.030); Urine Urobilinogen Negative (Neg - 1+)
[2023-11-13] MEDS: ZOSYN 50 IV ×4 (06:26→23:08)
--- NOTE | 2023-11-13 07:33 | W.PN.UPDATE ---
Update Note
Progress Note Update
Patient seen at bedside. Diagnosis and treatment options discuss with patient.
73 yo M with right femoral neck fracture, chronic bilateral lower extremity wounds
No Plans for OR today. Will need OR in the next couple of days.
Plan for NPO at midnight for tentative OR tomorrow pending OR availability
[2023-11-13] MEDS: FOLVITE 1 MG PO (07:59)
[2023-11-13] MEDS: COLACE 100 MG PO ×2 (07:59→20:12)
[2023-11-13] MEDS: MIRALAX 17 GRAMS PO (07:59)
[2023-11-13] MEDS: APRESOLINE 5 MG IV (08:00)
[2023-11-13] MEDS: PROTONIX IV 40 MG IV (08:00)
[2023-11-13] MEDS: NSS (PRESERVATIVE FREE) 10 ML IV (08:00)
[2023-11-13] MEDS: THIAMINE INJECTION 200 MG IV ×2 (08:04→20:08)
[2023-11-13] MEDS: TYLENOL 1000 MG PO ×3 (08:11→23:08)
--- NOTE | 2023-11-13 08:11 | W.PN.HOSP.TC ---
Today's Communication/Plan
-
Spoke to Dr. Ed Dumont (patient's buzzle buffer) at [facility] who is okay with patient being transferred to [facility]
Waiting for call back from transfer center
Continue IV antibiotics
Appreciate ID and ortho, as well as wound care team
NPO after midnight in case ortho elects to perform surgery tomorrow
Assessment / Plan
Assessment / Plan
Physical Exam
General: Not in acute distress
HEENT: Moist mucous membranes
Respiratory: Clear to Auscultation Bilaterally
Cardiac: S1/S2 and Regular Rhythm
GI: Soft, Non Tender, Non Distended and Normal Bowel Sounds
Musculoskeletal: Other (RLE externally rotated.)
Skin: Chronic venous stasis skin changes of b/l LEs. Evident areas of ulceration with some oozing in bilateral lower extremities.
Neuro: AO x 3
Assessment/Plan
Patient is a 73y M with PMH significant for venous insufficiency and chronic venous stasis skin changes / wound presents to ED after trip and fall with R hip pain.
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 Has chronic LE wounds / venous stasis and is followed by Dr. Ed Dumont (buzzle buffer) at [facility]. Was on PO antibiotics outpatient (does not know which) at
present. IV abx started on admission. BP uncontrolled - prob only in part due to pain. Unexplained anemia - work-up ordered / consented for transfusion. Regular EtOH use ([facility] protocol).
Right femoral neck fracture
- Pain control, NWB, supportive care overnight.
- Ortho eval for eventual operative repair in the next few days -- either here at [facility] (or after a possible transfer to [facility] -- see below)
- Increased risk for complications on the basis of chronic wounds, HTN and anemia.
- Address these issues as noted below.
- Benefits of planned procedure outweigh the potential risks and patient OK to proceed with OR without additional pre-op evaluation(s).
- Post-Op DVT prophylaxis, PT / OT, pain control, etc per Ortho.
Hypertension History
-Was previously placed on BP meds but stopped these once his BP improved.
-Not on any antihypertensives at home
-SBP 170s to 190s noted on 11/13/23
-Amlodipine 2.5 mg daily started on 11/13/23
-IV Hydralazine prn
Mechanical Fall
- Patient lost his balance when he stepped off a step that he did not know was there.
- No suspicious prodrome, LOC, etc.
- Mild head impact. No current symptoms / complaints in this regard.
- Consider INDUSTRI[employer] WORK[employer] imaging if any changes develop - but low suspicion.
Venous Insufficiency
Chronic Venous Stasis Skin Changes
Chronic B/L LE Wounds with Suspicion for Underlying Infection
- Recent increase in symptoms improving on PO abx per patient.
- Will cover with IV Vanco / Zosyn for now as patient does not recall current meds.
- On 11/13/23, I spoke with Dr. Ed Dumont (buzzle buffer) at [facility] who said patient's wounds are growing MRSA and Pseudomonas
- Continue abx perioperatively.
- Wound Care evaluation for local care during hospital stay.
- Consulted ID, appreciate evaluation and recommendations
Normocytic Anemia
- Hgb = 9 and has been in this range since early 2023.
- Had significant surgery at [facility] earlier this year and required blood products during that stay.
- No report of any evident blood loss, melena, etc per patient.
- He does take ibuprofen approx 1200mg daily and drinks alcohol on a near-daily basis.
- Heme test stools. PPI daily.
- Checked iron studies
- Consented for blood transfusion which he may require perioperatively.
ASCVD / PAD
- Patient has history of LOS to the [facility].
- He is not currently on ASA - apparently due to allergy.
- No complaints of chest pain. No history of heart disease specifically.
DVT Prophylaxis
- Patient is at elevated risk for DVT given chronic venous disease, LE wounds, injury, immobility, etc.
- No mechanical devices given his LE wounds.
- Hold pharmacologic prophylaxis for now given planned surgery.
- Would recommend pharmacologic prophylaxis be started GERALD post-op when OK with Ortho.
Code Status: Full
On November 13, 2023, I called and spoke to patient's buzzle buffer, Dr. Ed Dumont (buzzle buffer) at [facility], who mentioned that [facility] could not oversee care of patient's wounds because they didn't have the capability to do so, that a
recent wound culture showed MRSA and Pseudomonas and that patient would probably need IV antibiotics. Dr. Dumont's cell phone number is [phone] and contact numbers for the transfer center are [phone] and [phone]. I called and spoke
to [facility] transfer center, they took down basic patient info and they said they will call me back for further discussion for transfer.
Anticipated Discharge: > 48 hours
Subjective/Interval History
-
Date of Service: November 13, 2023
Patient was seen and examined. He reported some pain in his bilateral lower extremities, otherwise denied any other new, significant symptoms or complaints.
Objective Data
-
Labs:
Laboratory Results
11/12/23 11/13/23
23:08 07:47
WBC 13.8 H Pending
Hgb 9.0 L Pending
Hct 27.2 L Pending
Plt Count 313 Pending
PT 14.4
INR 1.13
APTT 35.9 H
Sodium 131 L Pending
Potassium 4.6 Pending
Chloride 99 Pending
Carbon Dioxide 22 Pending
BUN 11 Pending
Creatinine 1.1 Pending
Glucose 93 Pending
Calcium 9.1 Pending
Total Bilirubin 0.4
AST 31
ALT 12
Alkaline Phosphatase 103
Vital Signs:
Vital Signs
Temp Pulse Resp BP Pulse Ox
97.5 F 83 19 190/95 99
11/13/23 07:51 11/13/23 07:51 11/13/23 07:51 11/13/23 08:00 11/13/23 07:51
[2023-11-13 08:36] LABS: Hematocrit 30.5 % (39.0-52.0); Hemoglobin 10.1 g/dL (13.0-18.0); Mean Corp Hgb Conc. 33.1 g/dL (33.0-37.0); Mean Corpuscular Hgb 25.4 pg (27.0-31.0); Mean Corpuscular Volume 76.6 fL (80.0-94.0); Mean Platelet Volume 8.4 fL (7.4-10.4); Platelet Count 298 10^3/uL (130-400); Red Blood Cell Count 3.98 10^6/uL (4.70-6.10); Red Cell Dist. Width 18.1 % (11.5-14.5); White Blood Cell Count 15.8 10^3/uL (4.8-10.8)
[2023-11-13 08:40] LABS: Erythrocyte Sed Rate 37 mm/hour (0-20)
[2023-11-13 09:01] LABS: Calcium 9.2 mg/dl (8.4-10.2); Carbon Dioxide 24 mmol/L (22-30); Chloride 100 mmol/L (98-107); Estimated Creatinine Clearance 86 ml/min; Glucose 100 mg/dl (70-99); Iron 91 ug/dl (49-181); Potassium 4.4 mmol/L (3.5-5.1); Sodium 134 mmol/L (135-145); eGFR > 60.00
[2023-11-13] MEDS: ROXICODONE 5 MG PO ×2 (09:02→16:57)
[2023-11-13] MEDS: NEURONTIN 600 MG PO ×2 (09:02→20:08)
--- NOTE | 2023-11-13 09:08 | PHA.VAN.IN ---
Addendum entered and electronically signed by Chitra Vivas Víctor 11/13/23 09:51:
Agree with resident's assessment and plan below.
Original Note:
Assessment
- Assessment
Renal Function: Appears similar to baseline
Concomitant Antimicrobials: Pipercillin/Tazobactam
AUC Dosing Plan
- Empiric Dosing
Initial / Loading Dose: Vanco 2000mg loading dose given 11/12 0405
Maintenance Regimen: 1250mg Q12H Starting 11/12 1800
Estimated AUC (mcg*h/mL): 502
Estimated Peak (mcg*h/mL): 30.1
Estimated Trough (mcg/ml): 13.6
Estimated Half Life (H): 9.1
- Monitoring
No levels ordered at this time: Consider in then next few days
Pharmacokinetics Vancomycin I
- -
Patient Age: 73
Patient Sex: Male
Vancomycin Day #: 1
Indication: Skin And Soft Tissue
Requesting Provider: Dr. Delgado
Pertinent Antimicrobial Allergies:
No Pertinent Abx Allergies
Height / Weight:
Height 6 ft 3 in
Actual Weight 99.246 kg
- Vital Signs / Lab Results
Temp Pulse Resp BP Pulse Ox
97.5 F 83 19 190/95 99
11/13/23 07:51 11/13/23 07:51 11/13/23 07:51 11/13/23 08:00 11/13/23 07:51
Lab Results - Hematology
11/12/23 11/13/23
23:08 07:47
WBC 13.8 H 15.8 H
Lab Results - Chemistry
11/12/23 11/13/23
23:08 07:47
BUN 11
Creatinine 1.1 0.9
Estimated Creat Clear 70 86
Albumin 3.3 L
Lab Results - Urine
11/13/23
04:45
Urine Nitrite Cancelled
Urine Nitrite (Reflex) Negative
Ur Leukocyte Esterase Cancelled
Leukocyte Esterase Rfl Negative
[2023-11-13 09:10] LABS: Percent Saturation 33 % (20-50); Total Iron Binding Capacity 270 ug/dl (261-462)
[2023-11-13 09:13] LABS: Blood Urea Nitrogen 10 mg/dl (9-20)
[2023-11-13] MEDS: NORVASC 2.5 MG PO (10:48)
[2023-11-13 12:08] LABS: Vitamin B12 821 pg/ml (239-931)
--- NOTE | 2023-11-13 12:08 | PTCARENOTE ---
pt aaox3 states pain in right hip pain med given as ordered. pt bilat legs dressing done by wound care.
--- NOTE | 2023-11-13 12:17 | WOUNDNOTE ---
L MEDIAL LOWER LEG
--- NOTE | 2023-11-13 12:18 | WOUNDNOTE ---
L LATERAL AND POSTERIOR LEG
--- NOTE | 2023-11-13 12:18 | WOUNDNOTE ---
L ANTERIOR LOWER LEG
--- NOTE | 2023-11-13 12:18 | WOUNDNOTE ---
R LATERAL LOWER LEG
--- NOTE | 2023-11-13 12:19 | WOUNDNOTE ---
R MEDIAL/POSTERIOR LOWER LEG
--- NOTE | 2023-11-13 12:20 | WOUNDNOTE ---
WON RN note: Patient admitted with closed fracture of R hip/sp fall.
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
PMH: Left calf skin cancer, HTN, ETOH, PAD, Legs with chronic Pyoderma Gangrenosum follows with surgeon Dr. Dumont at [facility] weekly.
Wound Location and type/assessment: Patient known to service, last seen 01/2023 for same chronic leg wounds due to pyoderma gangrenosum. Patient assessed along with Dr. Ritchie at 11am. Patient has been following up with wound care/surgeon
Julia q Monday. Currently using a 4 layer compression type of Coflex wrap with silver alginate over open wounds. Wrap stays on for a week and was due to be changed tomorrow. Also uses lymphedema pumps once a day patient states. With assist from
nurse Fuentes, changed dressings/tatum wraps. Skin surrounding wounds and feet are very dry and flaky. + audible pedal pulses with Doppler, Heels intact. Patient refused to turn due to pain in R hip. On bedrest, unable to assess Sacrum. Patient made
aware that he needs to turn to prevent PI, he states he understands but still does not want to turn at this time.
Appetite: Good.
Pressure redistribution devices in place: Using air overlay with adequate inflation. Elevated L leg with pillow under leg.
Plan: A & D applied to dry skin on periwound legs, will order mineral oil. To wounds applied Silver alginate, abd pad and kerlix with tatum wraps knee high. Dr. Ritchie approved wound care and compression. Will update care plan, RN and will follow
as needed.
--- NOTE | 2023-11-13 13:29 | CM ---
Reviewed the chart notes and spoke with the patient at the bedside. CM consult for substance abuse. CM offered resources for alcohol abuse, patient declined. The patient resides alone in a first floor condo with entry ground level and then five
steps down to the condo. The patient has had [facility] V[facility] in the past, but no DME/VN. The patient confirmed his pharmacy of choice is the [facility] on [address] [place]. CM continues to be available to patient/family and is monitoring
medical plan for needs at discharge.
Plan: Discharge plans will depend on the patient's progress.
--- NOTE | 2023-11-13 14:21 | CON.ID ---
Consultation
-
Date/Time Consultation Requested: 11/13/23 13:13
Date/Time Consultation Performed: 11/13/23 4:23
Requesting Provider: Dr Ritchie
Performing Provider: Dr Georges
Reason for Consultation: Bilateral lower extremity wounds, infected
Chief Complaint / Past History
Chief Complaint
Fall, R Hip Pain
History of Present Illness
Mr Tran is a 73 year old male with history of venous stasis with bilateral ulcers (followed at [facility], s/p multiple debridement/grafts June 2023) who presented here after he missed a step, lost his balance and fell. His head on the wall and landed
on his right side. No loss of consciousness. No chest pain, lightheadedness, or dizziness. He was jeanette to the ER and found to have a R hip fracture. Of not about 2 weeks ago with maldorous drainage and given oral antibiotics but he cannot
recall which ones, did feel that he was improving. Review of outpatient pharmacy records shows bactrim 1 DS tab BID x14 day started 11/07/23, levofloxacin 750 mg PO qday x14 days also started 11/07/23. Prior to this he was on doxycycline 100 mg PO
BID x0 days starting 10/25/23 and ciprofloxacin 500 mg PO BID x10 days starting 10/25/23.
Since admission here he has been afebrile, bp stable, wbc initially 13.8 now 15.8, hgb 10, plt 298, no left shift on arrival, eos were present, t bili 0.4, ast 31, alt 12, alk phos 103, crp 32, ua no pyuria, 11/11 right hip xray: Displaced
transcervical proximal femoral fracture. blood cultures x2 in progress, mrsa screen pending. Seen by orthopedics: plan for the OR tentatively tomorrow pending availability
Past History
Additional Past Medical History:
Chronic Venous Stasis Skin Changes / Ulcerations
ASCVD / PAD
Peripheral Neuropathy
Hypertension
Skin Cancer
Venous Insufficiency
Additional Past Surgical History:
Facial Reconstruction
Vein Stripping
LE Debridement / Skin Grafting (June 2023)
Skin Cancer Excision
Allergy History:
acetaminophen [From Excedrin Extra Strength] Allergy (Verified 11/12/23 22:41)
Swelling
aspirin [From Excedrin Back and Body] Allergy (Verified 11/12/23 22:41)
Swelling
caffeine [From Excedrin Extra Strength] Allergy (Verified 11/12/23 22:41)
Swelling
calcium carbonate [From Excedrin Back and Body] Allergy (Verified 11/12/23 22:41)
Unknown
Medications Reviewed: Yes
Social History
Tobacco: Former Smoker (20 pack year history)
Alcohol: Daily (several beers)
Drug: None
Employment: Employed (works in [employer] for [employer])
Family History
Family History: Not Pertinent
Review of Systems
Review of Systems
General: Negative Fever or Chills
All systems: All other systems were reviewed and were negative
Vital Signs
Temp Pulse Resp BP Pulse Ox
98.2 F 80 17 163/74 99
11/13/23 11:41 11/13/23 11:41 11/13/23 11:41 11/13/23 11:41 11/13/23 11:41
Physical Exam
Physical Exam
Constitutional: No Acute Distress
Cardiovascular: Regular Rate and S1/S2; Negative Murmur or Rub
Pulmonary: Clear and Symmetric; Negative Wheezes, Rales or Rhonchi
Gastrointestinal: Soft, Non Tender, Non Distended and Normal Bowel Sounds
Skin: Warm and Dry; Negative Rash or Jaundice
Wound: Other (dressings clean, dry, intact - patient adamantly refuses take down today)
Lab / Diagnostic Study Results
11/13/23 07:47
11/13/23 07:47
Abs Immat Gran (auto) 0.1 10^3/uL (0-0.05) H 11/12/23 23:08
Absolute Neuts (auto) 8.6 10^3/uL (1.4-6.5) H 11/12/23 23:08
Absolute Lymphs (auto) 3.6 10^3/uL (1.2-3.4) H 11/12/23 23:08
Absolute Monos (auto) 1.2 10^3/uL (0.1-0.6) H 11/12/23 23:08
Absolute Basos (auto) 0.1 10^3/uL (0-0.2) 11/12/23 23:08
Immature Gran % 0.7 % (0-0.5) H 11/12/23 23:08
Neutrophils % 61.8 % (42.2-75.2) 11/12/23 23:08
Lymphocytes % 25.8 % (20.5-51.1) 11/12/23 23:08
Monocytes % 8.5 % (1.7-9.3) 11/12/23 23:08
Eosinophils % 2.7 % (0-6) 11/12/23 23:08
Basophils % 0.5 % (0-2) 11/12/23 23:08
ESR 37 mm/hour (0-20) H 11/13/23 07:47
PT 14.4 Sec (11.4-14.6) 11/12/23 23:08
INR 1.13 11/12/23 23:08
C-Reactive Protein 32.70 mg/L (0.0-10.00) H 11/13/23 07:47
Microbiology Results
Micro:
11/13/23 08:38 Blood Culture - Pending
Blood/Venous
11/13/23 08:13 Blood Culture - Pending
Blood/Venous
11/13/23 04:03 MRSA Screen - Pending
Nose
Assessment / Plan
Chronic Venous Stasis wounds - acute infection
Regular exposure to health care environments
Closed R hip fracture
- recently on bactrim/levofloxacin; prior to that doxycycline/cipro per pharmacy records
- will attempt to coordinate dressing take down/wound culture with RN tomorrow AM
- mrsa screen in progress
- blood cultures x2 were sent by ER, low risk of bacteremia
- qtc was 450 on arrival
- continue vancomycin pending MRSA screen/wound culture
- continue zosyn
- add probiotics
- patient has requested transfer to [facility] where his wounds are typically tended to
[2023-11-13] MEDS: VISBIOME 2 CAP PO (15:48)
[2023-11-13] MEDS: LOVENOX 40 MG SC (16:57)
[2023-11-13] MEDS: VANCOCIN 275 MG IV (17:43)
--- NOTE | 2023-11-13 17:49 | PTCARENOTE ---
pt had not voided in this shift bladder scanned for 1450. contacted primary MD ordered to place [facility] cath.
--- NOTE | 2023-11-13 18:11 | W.CS.POD ---
Consult Summary - Podiatry
-
73 yo male admitted to the [facility] with Rt hip fracture , he has extensive h/o b/l lower legs chronic superficial wounds from venous stais disease and had multiple debridement and grafts placed at [facility], He has been treated at [facility]
since May 2023. HE had a fall and may need surgery for his hip fracture and waiting for possible transfer to [place].
HE is in no acute distress, denies nay pain in both lower legs, no fever, chills. No SOB
Reviewed PMH, meds and allergies.
Exam : Intact vascular status b/l feet, minimal edema to b/l lower legs
B/l lower legs with pink, granular superficial ulcerations noted, with serous drainage, local erythema noted. minimal slough noted, no deep tunneling or exposed bone, no necrotic tissue noted.
A/P ; B/l lower leg cellultis
Chronic venous stasis disease with ulcerations
Non healing lower leg ulcerations .
Leukocytosis - infected leg ulcerations
Plan : Cont IV Abx
Wound care with non adhesive dressings and aliginate and compressive dressings to b/l lower legs once daily .
Waiting for final approval for possible transfer to [facility]
No surgical intervention by podiatry
--- NOTE | 2023-11-13 18:18 | W.PN.UPDATE ---
Update Note
Progress Note Update
I called [facility] again earlier this afternoon, Transfer Center spoke to Dr. Ed Dumont (patient's heel lift gouger at [facility]) who accepted the patient for transfer to be transferred emergently, once a bed is available.
--- NOTE | 2023-11-13 19:34 | W.PN.UPDATE ---
Update Note
Progress Note Update
Saw patient at bedside and discussed care with him and his daughter. Patient is requesting transfer to [facility] for continued treatment of his chronic wounds bilateral lower extremities. I discussed planing of his planned hip
arthroplasty procedure for femoral neck fracture. Explained him that typically we like to perform these within 48 to 72 hours of possible. If he is able to be transferred in the near term to [facility], would defer definitive
treatment of femoral neck fracture to be determined after he is transferred. Should his transfer be delayed until the end of the week, we discussed proceeding with surgical intervention here. He would like to keep his care under one treating
facility and I understand this. Will touch base with him pending plans for transfer.
[2023-11-14 03:17] VITALS: BP 104/70
[2023-11-14] MEDS: DILAUDID 0.5 MG IV (04:30)
[2023-11-14] MEDS: VANCOCIN 275 MG IV (05:24)
[2023-11-14] MEDS: ZOSYN 50 IV ×4 (05:25→23:10)
[2023-11-14 06:00] VITALS: BMI 27.4
[2023-11-14 07:30] VITALS: BP 158/72
[2023-11-14 09:05] LABS: % Basophils 0.6 % (0-2); % Eosinophils 8.3 % (0-6); % Immature Granulocytes 0.4 % (0-0.5); % Lymphocytes 17.6 % (20.5-51.1); % Monocytes 10.1 % (1.7-9.3); Absolute Basophils 0.1 10^3/uL (0-0.2); Absolute Eosinophils 1.1 10^3/uL (0-0.7); Absolute Immature Granulocytes 0.1 10^3/uL (0-0.05); Absolute Lymphocytes 2.4 10^3/uL (1.2-3.4); Absolute Monocytes 1.4 10^3/uL (0.1-0.6); Absolute Neutrophils 8.7 10^3/uL (1.4-6.5); Hemoglobin 9.9 g/dL (13.0-18.0); Mean Corpuscular Hgb 25.1 pg (27.0-31.0); Mean Corpuscular Volume 76.1 fL (80.0-94.0); Nucleated Red Blood Cells % 0 % (-); Platelet Count 255 10^3/uL (130-400); Red Blood Cell Count 3.94 10^6/uL (4.70-6.10); Red Cell Dist. Width 18.5 % (11.5-14.5); White Blood Cell Count 13.8 10^3/uL (4.8-10.8)
[2023-11-14] MEDS: FOLVITE 1 MG PO (09:28)
[2023-11-14] MEDS: NSS (PRESERVATIVE FREE) 10 ML IV (09:29)
[2023-11-14] MEDS: TYLENOL 1000 MG PO ×3 (09:29→23:11)
[2023-11-14] MEDS: VISBIOME 2 CAP PO (09:29)
[2023-11-14] MEDS: NORVASC 2.5 MG PO (09:29)
[2023-11-14] MEDS: NEURONTIN 600 MG PO ×2 (09:29→20:06)
[2023-11-14] MEDS: PROTONIX IV 40 MG IV (09:30)
[2023-11-14] MEDS: THIAMINE INJECTION 200 MG IV ×2 (09:30→20:06)
--- NOTE | 2023-11-14 09:44 | W.PN.HOSP.TC ---
Today's Communication/Plan
-
Continue antibiotics and wound care
Appreciate ortho, ID, Podiatry
Awaiting transfer to [facility]
Check Abdominal X-Ray to assess stool burden
Follow hip precautions given active hip fracture
Assessment / Plan
Assessment / Plan
Physical Exam
General: Not in acute distress
HEENT: Moist mucous membranes
Respiratory: Clear to Auscultation Bilaterally
Cardiac: S1/S2 and Regular Rhythm
GI: Soft, Non Tender, Non Distended and Normal Bowel Sounds
Skin: Bilateral Lower Extremities Covered in Dressing
Neuro: AO x 3
Assessment/Plan
Patient is a 73 y/o male with past medical history significant for venous insufficiency and chronic venous stasis skin changes / wound presents to ED after trip and fall with R hip pain.
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 Has chronic LE wounds / venous stasis and is followed by Dr. Ed Dumont (file clerk data entry) at [facility]. Was on PO antibiotics outpatient (does not know which) at
present. IV abx started on admission. BP uncontrolled - prob only in part due to pain. Unexplained anemia - work-up ordered / consented for transfusion. Regular EtOH use (MSAS protocol).
Right femoral neck fracture
- Pain control, NWB
- Ortho eval for eventual operative repair in the next 24 to 48 hours -- either at [facility] or here at [facility] if time to actual transfer is prolonged till the end of the week
- Increased risk for complications on the basis of chronic wounds, HTN and anemia.
- Benefits of planned procedure outweigh the potential risks and patient OK to proceed with OR without additional pre-op evaluation(s).
- PT / OT, pain control, etc per Ortho.
Hypertension History
-Was previously placed on BP meds but stopped these once his BP improved.
-Not on any antihypertensives at home
-SBP 170s to 190s noted on 11/13/23
-Amlodipine 2.5 mg daily started on 11/13/23 with better control
-IV Hydralazine prn
Mechanical Fall
- Patient lost his balance when he stepped off a step that he did not know was there.
- No suspicious prodrome, LOC, etc.
- Mild head impact. No current symptoms / complaints in this regard.
- Consider BIOFUELS PLANT OPERATIONS ENGINEER imaging if any changes develop - but low suspicion.
Concern for Constipation
-Patient reports no bowel movement for ~1 week
-Abdominal X-ray ordered to assess stool burden
Venous Insufficiency
Chronic Venous Stasis Skin Changes
Chronic B/L LE Wounds with Suspicion for Underlying Infection
- Recent increase in symptoms improving on PO abx per patient.
- Will cover with IV Vanco / Zosyn for now as patient does not recall current meds.
- On 11/13/23, I spoke with Dr. Ed Dumont (file clerk data entry) at [place] who said patient's wounds are growing MRSA and Pseudomonas
- Continue abx perioperatively.
- Wound Care evaluation: continue wound care with non-adhesive dressings and aliginate and compressive dressings to b/l lower legs once daily
- Consulted ID, appreciate evaluation and recommendations
Normocytic Anemia
- Hgb = 9 and has been in this range since early 2023.
- Hgb currently stable
- Had significant surgery at [place] earlier this year and required blood products during that stay.
- No report of any evident blood loss, melena, etc per patient.
- He does take ibuprofen approx 1200mg daily and drinks alcohol on a near-daily basis.
- Heme test stools. PPI daily.
- Checked iron studies
- Consented for blood transfusion which he may require perioperatively.
ASCVD / PAD
- Patient has history of LOS to the L [facility].
- He is not currently on ASA - apparently due to allergy.
- No complaints of chest pain. No history of heart disease specifically.
DVT Prophylaxis
- Patient is at elevated risk for DVT given chronic venous disease, LE wounds, injury, immobility, etc.
- No mechanical devices given his LE wounds.
- Okay to give harmacologic prophylaxis as per [place] Text discussion with Dr. Hoang on 11/14/23
- Would recommend pharmacologic prophylaxis be started GERALD post-op when OK with Ortho.
Code Status: Full
On November 13, 2023, I called and spoke to patient's file clerk data entry, Dr. Ed Dumont (file clerk data entry) at [facility], who mentioned that [facility] could not oversee care of patient's wounds because they didn't have the capability to do so, that a
recent wound culture showed MRSA and Pseudomonas and that patient would probably need IV antibiotics. Dr. Dumont's cell phone number is [phone] and contact numbers for the transfer center are [phone] and [phone]. I called and spoke
to [place] [facility], Transfer Center spoke to Dr. Ed Dumont (patient's file clerk data entry at [facility]) who accepted the patient for transfer to be transferred emergently, once a bed is available.
Anticipated Discharge: > 48 hours
Subjective/Interval History
-
Date of Service: November 14, 2023
Patient was seen and examined. He reported no new significant symptoms or complaints.
Objective Data
-
Labs:
Laboratory Results
11/14/23
08:43
WBC 13.8 H
Hgb 9.9 L
Hct 30.0 L
Plt Count 255
Sodium Pending
Potassium Pending
Chloride Pending
Carbon Dioxide Pending
BUN Pending
Creatinine Pending
Glucose Pending
Calcium Pending
Vital Signs:
Vital Signs
Temp Pulse Resp BP Pulse Ox
98.7 F 76 18 158/72 95
11/14/23 07:30 11/14/23 07:30 11/14/23 07:30 11/14/23 07:30 11/14/23 07:30
I&O
11/13/23 11/14/23 11/15/23
06:59 06:59 06:59
Intake Total 590 / 590 1630 / 1630
Output Total 3350 / 3350
Balance 590 / 590 -1720 / -1720
[2023-11-14 10:18] LABS: Blood Urea Nitrogen 8 mg/dl (9-20); Calcium 8.8 mg/dl (8.4-10.2); Carbon Dioxide 24 mmol/L (22-30); Chloride 102 mmol/L (98-107); Estimated Creatinine Clearance 86 ml/min; Glucose 101 mg/dl (70-99); Potassium 4.6 mmol/L (3.5-5.1); Sodium 135 mmol/L (135-145); eGFR > 60.00
[2023-11-14] MEDS: HYDROPHOR TOPICAL (10:40)
--- NOTE | 2023-11-14 10:41 | PHA.VAN.FU ---
Addendum entered and electronically signed by Chitra Vivas Víctor 11/14/23 11:04:
Agree with resident's assessment and plan below.
Original Note:
Vancomycin Assessment / Plan
- Assessment
Renal Function: Stable
In the past 24 hrs, patient has been: Afebrile
Concomitant Antimicrobials: Pipercillin/Tazobactam
- Dosing Plan
Continue: Vanco 1250mg Q12H
- Monitoring Plan
No level(s) ordered at this time: Consider levels in the next few days
- Follow Up
Pharmacy will continue to follow.
Vancomycin Follow UP
- -
Patient Age: 73
Patient Sex: Male
Vancomycin Day #: 2
Indication: Skin And Soft Tissue
Requesting Provider: Dr. Delgado
Pertinent Antimicrobial Allergies:
No Pertinent Abx Allergies
Height / Weight:
Height 6 ft 3 in
Actual Weight 99.337 kg
- Vital Signs / Lab Results
Temp Pulse Resp BP Pulse Ox
98.7 F 76 18 158/72 95
11/14/23 07:30 11/14/23 07:30 11/14/23 07:30 11/14/23 07:30 11/14/23 07:30
Lab Results - Hematology
11/12/23 11/13/23 11/14/23
23:08 07:47 08:43
WBC 13.8 H 15.8 H 13.8 H
Lab Results - Chemistry
11/12/23 11/13/23 11/14/23
23:08 07:47 08:43
BUN 11 10 8 L
Creatinine 1.1 0.9 0.9
Estimated Creat Clear 70 86 86
Albumin 3.3 L
Microbiology Results
11/13/23 08:38 Blood Culture - Preliminary
Blood/Venous No Growth in 24 hours- Final report to follow
11/13/23 04:03 MRSA Screen - Final
Nose No Methicillin Resistant Staphylococcus aureus isolated.
11/13/23 08:13 Blood Culture - Preliminary
Blood/Venous No Growth in 24 hours- Final report to follow
[2023-11-14 11:10] VITALS: BP 132/81
[2023-11-14 11:45] VITALS: BMI 27.7
--- NOTE | 2023-11-14 12:35 | CM ---
Reviewed the chart notes. Patient to be transferred to [facility] once bed becomes available. CM continues to be available to patient/family and is monitoring medical plan for needs at discharge.
Plan: Transfer to [facility].
--- NOTE | 2023-11-14 13:19 | W.PN.ID1 ---
Date of Service
Date of Service: November 14, 2023
Today's Communication
wounds with bilateral purulent drainage
continue zosyn
mrsa screen negative stopped vancomycin
Assessment / Plan
Chronic Venous Stasis wounds - acute infection
Regular exposure to health care environments
Closed R hip fracture
- recently on bactrim/levofloxacin; prior to that doxycycline/cipro per pharmacy records
- mrsa screen in progress
- blood cultures x2 were sent by ER, low risk of bacteremia
- qtc was 450 on arrival
- stopped vancomycin
- continue zosyn
- continue probiotics
- patient has requested transfer to [facility] where his wounds are typically tended to
Chief Complaint
-: Other (wound infection)
Subjective / Review of Systems
bilateral venous ulcerations - wounds with moderate purulent drainage R > L
no fevers
bp stable
goldsmith placed for urinary retention
Vital Signs / Physical Exam
Vital Signs
Vital Signs
Temp Pulse Resp BP Pulse Ox
98.2 F 81 16 132/81 92
11/14/23 11:10 11/14/23 11:10 11/14/23 11:10 11/14/23 11:10 11/14/23 11:10
Physical Exam
Constitutional: No Acute Distress and Chronically Ill
Cardiovascular: Regular Rate and S1/S2; Negative Murmur or Rub
Pulmonary: Clear and Symmetric; Negative Wheezes or Rales
Gastrointestinal: Soft, Non Tender, Non Distended and Normal Bowel Sounds
Musculoskeletal: Other (wounds on the bilateral lower extremities moderate purulent drainage- granulation tissue in the bases, edema controlled)
Skin: Warm and Dry; Negative Rash or Jaundice
Objective Data
Lab Data
Lab Results
11/14/23 08:43
11/14/23 08:43
ESR 37 mm/hour (0-20) H 11/13/23 07:47
PT 14.4 Sec (11.4-14.6) 11/12/23 23:08
INR 1.13 11/12/23 23:08
APTT 35.9 Sec (23.4-35.0) H 11/12/23 23:08
Estimated Creat Clear 86 ml/min 11/14/23 08:43
Total Bilirubin 0.4 mg/dl (0.2-1.3) 11/12/23 23:08
AST 31 U/L (17-59) 11/12/23 23:08
ALT 12 U/L (0-50) 11/12/23 23:08
Alkaline Phosphatase 103 U/L (38-126) 11/12/23 23:08
C-Reactive Protein 32.70 mg/L (0.0-10.00) H 11/13/23 07:47
Most recent labs reviewed.
Micro Results:
11/13/23 08:38 Blood Culture - Preliminary
Blood/Venous No Growth in 24 hours- Final report to follow
11/13/23 04:03 MRSA Screen - Final
Nose No Methicillin Resistant Staphylococcus aureus isolated.
11/13/23 08:13 Blood Culture - Preliminary
Blood/Venous No Growth in 24 hours- Final report to follow
[2023-11-14] MEDS: MIRALAX 17 GRAMS PO (13:53)
[2023-11-14 15:25] VITALS: BP 163/78
[2023-11-14] MEDS: LOVENOX 40 MG SC (18:27)
[2023-11-14 19:34] VITALS: BP 170/84
[2023-11-14 22:59] VITALS: BP 123/91
[2023-11-14] MEDS: ROXICODONE 5 MG PO (23:11)
[2023-11-15] VITALS (7 sets, daily range): BP systolic 132–165; BP diastolic 65–78
[2023-11-15] MEDS: ZOSYN 50 IV ×4 (05:51→23:07)
[2023-11-15 07:53] LABS: % Basophils 0.7 % (0-2); % Eosinophils 7.7 % (0-6); % Immature Granulocytes 0.4 % (0-0.5); % Lymphocytes 17.6 % (20.5-51.1); % Monocytes 10.3 % (1.7-9.3); % Neutrophils 63.3 % (42.2-75.2); Absolute Basophils 0.1 10^3/uL (0-0.2); Absolute Eosinophils 1.1 10^3/uL (0-0.7); Absolute Immature Granulocytes 0.1 10^3/uL (0-0.05); Absolute Lymphocytes 2.4 10^3/uL (1.2-3.4); Absolute Monocytes 1.4 10^3/uL (0.1-0.6); Absolute Neutrophils 8.6 10^3/uL (1.4-6.5); Hematocrit 30.4 % (39.0-52.0); Hemoglobin 10.3 g/dL (13.0-18.0); Mean Corp Hgb Conc. 33.9 g/dL (33.0-37.0); Mean Corpuscular Hgb 25.8 pg (27.0-31.0); Mean Platelet Volume 8.2 fL (7.4-10.4); Nucleated Red Blood Cells % 0 % (-); Platelet Count 262 10^3/uL (130-400); Red Cell Dist. Width 18.7 % (11.5-14.5); White Blood Cell Count 13.6 10^3/uL (4.8-10.8)
[2023-11-15] MEDS: ROXICODONE 5 MG PO ×3 (08:55→23:07)
[2023-11-15 08:57] LABS: Blood Urea Nitrogen 10 mg/dl (9-20); Calcium 8.6 mg/dl (8.4-10.2); Carbon Dioxide 23 mmol/L (22-30); Chloride 100 mmol/L (98-107); Estimated Creatinine Clearance 86 ml/min; Glucose 74 mg/dl (70-99); Magnesium 1.9 mg/dl (1.6-2.3); Potassium 4.5 mmol/L (3.5-5.1); Sodium 134 mmol/L (135-145); eGFR > 60.00
[2023-11-15] MEDS: NEURONTIN 600 MG PO ×2 (09:02→21:09)
[2023-11-15] MEDS: NORVASC 2.5 MG PO (09:02)
[2023-11-15] MEDS: MIRALAX 17 GRAMS PO (09:02)
[2023-11-15] MEDS: TYLENOL 1000 MG PO ×3 (09:02→23:07)
[2023-11-15] MEDS: HYDROPHOR 1 APPLIC TOPICAL (09:03)
[2023-11-15] MEDS: NSS (PRESERVATIVE FREE) 10 ML IV (09:03)
[2023-11-15] MEDS: THIAMINE INJECTION 200 MG IV ×2 (09:03→21:10)
[2023-11-15] MEDS: PROTONIX IV 40 MG IV (09:03)
[2023-11-15] MEDS: VISBIOME 2 CAP PO (09:03)
[2023-11-15] MEDS: FOLVITE 1 MG PO (09:03)
--- NOTE | 2023-11-15 09:59 | W.PN.HOSP.TC ---
Addendum entered and electronically signed by Jeferson Ritchie MD 11/15/23 10:10:
I just spoke to patient's master in chancery at [facility] Dr. Ed Dumont who said patient is next on the list to be transferred, he said he expects the transfer to happen today or tonight.
Original Note:
Today's Communication/Plan
-
Still waiting to hear from [facility] about bed availability at [facility]
Continue Zosyn; appreciate ID
Patient can eat today
Assessment / Plan
Assessment / Plan
Physical Exam
General: Not in acute distress
HEENT: Moist mucous membranes
Respiratory: Clear to Auscultation Bilaterally
Cardiac: S1/S2 and Regular Rhythm
GI: Soft, Non Tender, Non Distended and Normal Bowel Sounds
Skin: Bilateral Lower Extremities Covered in Dressing
Neuro: AO x 3
Assessment/Plan
Patient is a 73 y/o male with past medical history significant for venous insufficiency and chronic venous stasis skin changes / wound presents to ED after trip and fall with R hip pain.
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 Has chronic LE wounds / venous stasis and is followed by Dr. Ed Dumont (master in chancery) at [facility]. Was on PO antibiotics outpatient (does not know which) at
present. IV abx started on admission. BP uncontrolled - prob only in part due to pain. Unexplained anemia - work-up ordered / consented for transfusion. Regular EtOH use (MSAS protocol).
Right femoral neck fracture
- Pain control, NWB
- Ortho eval for eventual operative repair in the next 24 to 48 hours -- either at [facility] or here at [facility] if time to actual transfer is prolonged till the end of the week
- Increased risk for complications on the basis of chronic wounds, HTN and anemia.
- Benefits of planned procedure outweigh the potential risks and patient OK to proceed with OR without additional pre-op evaluation(s).
- PT / OT, pain control, etc per Ortho.
Hypertension History
-Was previously placed on BP meds but stopped these once his BP improved.
-Not on any antihypertensives at home
-SBP 170s to 190s noted on 11/13/23
-Amlodipine 2.5 mg daily started on 11/13/23 with better control-->increased further to 5 mg daily for better control as blood pressure still high at times
-IV Hydralazine prn
Mechanical Fall
- Patient lost his balance when he stepped off a step that he did not know was there.
- No suspicious prodrome, LOC, etc.
- Mild head impact. No current symptoms / complaints in this regard.
- Consider SUBWAREHOUSE SUPERVISOR imaging if any changes develop - but low suspicion.
Concern for Constipation
-Patient reports no bowel movement for ~1 week
-Abdominal X-ray: moderate fecal material present
-Miralax started; continue
Venous Insufficiency
Chronic Venous Stasis Skin Changes
Chronic B/L LE Wounds with Suspicion for Underlying Infection
- Recent increase in symptoms improving on PO abx per patient.
- Status post Vancomycin -- but Vancomycin now discontinued as MRSA is negative
- Continue Zosyn
- On 11/13/23, I spoke with Dr. Ed Dumont (master in chancery) at [facility] who said patient's wounds are growing MRSA and Pseudomonas
- Wound Care evaluation: continue wound care with non-adhesive dressings and aliginate and compressive dressings to b/l lower legs once daily
- Consulted ID, appreciate evaluation and recommendations
Normocytic Anemia
- Hgb = 9 and has been in this range since early 2023.
- Hgb currently stable
- Had significant surgery at [facility] earlier this year and required blood products during that stay.
- No report of any evident blood loss, melena, etc per patient.
- He does take ibuprofen approx 1200mg daily and drinks alcohol on a near-daily basis.
- Heme test stools. PPI daily.
- Checked iron studies, which showed: Iron 91, TIBC 270, and % Iron Saturation at 33
- Consented for blood transfusion which he may require perioperatively.
ASCVD / PAD
- Patient has history of LOS to the L [facility].
- He is not currently on ASA - apparently due to allergy.
- No complaints of chest pain. No history of heart disease specifically.
DVT Prophylaxis
- Patient is at elevated risk for DVT given chronic venous disease, LE wounds, injury, immobility, etc.
- No mechanical devices given his LE wounds.
- Okay to give pharmacologic prophylaxis as per [place] Text discussion with Dr. Hoang on 11/14/23
Code Status: Full
On November 13, 2023, I called and spoke to patient's master in chancery, Dr. Ed Dumont (master in chancery) at [facility], who mentioned that [facility] could not oversee care of patient's wounds because they didn't have the capability to do so, that a
recent wound culture showed MRSA and Pseudomonas and that patient would probably need IV antibiotics. Dr. Dumont's cell phone number is [phone] and contact numbers for the transfer center are [phone] and [phone]. I called and spoke
to [facility], Transfer Center spoke to Dr. Ed Dumont (patient's master in chancery at [facility]) who accepted the patient for transfer to be transferred emergently, once a bed is available.
Anticipated Discharge: > 48 hours
Subjective/Interval History
-
Date of Service: November 15, 2023
Patient was seen and examined. He denied any new significant symptoms or complaints, except that he feels sore lying in the bed for days.
Objective Data
-
Labs:
Laboratory Results
11/15/23
07:24
WBC 13.6 H
Hgb 10.3 L
Hct 30.4 L
Plt Count 262
Sodium 134 L
Potassium 4.5
Chloride 100
Carbon Dioxide 23
BUN 10
Creatinine 0.9
Glucose 74
Calcium 8.6
Vital Signs:
Vital Signs
Temp Pulse Resp BP Pulse Ox
98.7 F 78 16 165/75 98
11/15/23 07:30 11/15/23 07:30 11/15/23 07:30 11/15/23 09:02 11/15/23 07:30
I&O
11/14/23 11/15/23 11/16/23
06:59 06:59 06:59
Intake Total 1630 / 1630 830 / 830
Output Total 3350 / 3350 1525 / 1525
Balance -1720 / -1720 -695 / -695
--- NOTE | 2023-11-15 14:36 | CM ---
Reviewed the chart notes. Patient anticipates being transferred to [facility] today or [facility]. CM continues to be available to patient/family and is monitoring medical plan for needs at discharge.
[facility]
--- NOTE | 2023-11-15 15:55 | W.PN.ID1 ---
Date of Service
Date of Service: November 15, 2023
Today's Communication
- continue zosyn
- continue probiotics
- patient has requested transfer to [facility] where his wounds are typically tended to
Assessment / Plan
Chronic Venous Stasis wounds - acute infection
Regular exposure to health care environments
Closed R hip fracture
- recently on bactrim/levofloxacin; prior to that doxycycline/cipro per pharmacy records
- mrsa screen in progress - negative
- blood cultures x2 were sent by ER, low risk of bacteremia
- qtc was 450 on arrival
- continue zosyn
- continue probiotics
- patient has requested transfer to [facility] where his wounds are typically tended to
Chief Complaint
-: Other (wound infection)
Subjective / Review of Systems
afebrile
tolerating current therapies
no new complaints
Vital Signs / Physical Exam
Vital Signs
Vital Signs
Temp Pulse Resp BP Pulse Ox
98.6 F 78 16 160/71 97
11/15/23 11:15 11/15/23 11:15 11/15/23 11:15 11/15/23 11:15 11/15/23 11:15
Physical Exam
Constitutional: Comfortable
Cardiovascular: Regular Rate
Pulmonary: Symmetric and Non Labored
Gastrointestinal: Non Tender
Extremities: Other (dressings clean, dry, intact, deferred take down today)
Objective Data
Lab Data
Lab Results
11/15/23 07:24
11/15/23 07:24
ESR 37 mm/hour (0-20) H 11/13/23 07:47
PT 14.4 Sec (11.4-14.6) 11/12/23 23:08
INR 1.13 11/12/23 23:08
APTT 35.9 Sec (23.4-35.0) H 11/12/23 23:08
Estimated Creat Clear 86 ml/min 11/15/23 07:24
Total Bilirubin 0.4 mg/dl (0.2-1.3) 11/12/23 23:08
AST 31 U/L (17-59) 11/12/23 23:08
ALT 12 U/L (0-50) 11/12/23 23:08
Alkaline Phosphatase 103 U/L (38-126) 11/12/23 23:08
C-Reactive Protein 32.70 mg/L (0.0-10.00) H 11/13/23 07:47
Most recent labs reviewed.
Micro Results:
11/13/23 08:38 Blood Culture - Preliminary
Blood/Venous No Growth in 48 hours- Final report to follow
11/13/23 08:13 Blood Culture - Preliminary
Blood/Venous No Growth in 48 hours- Final report to follow
11/13/23 04:03 MRSA Screen - Final
Nose No Methicillin Resistant Staphylococcus aureus isolated.
[2023-11-15] MEDS: LOVENOX 40 MG SC (17:36)
[2023-11-16 03:40] VITALS: BP 162/75
[2023-11-16] MEDS: ZOSYN 50 IV ×4 (05:37→23:09)
[2023-11-16 07:15] LABS: % Basophils 0.7 % (0-2); % Eosinophils 8.8 % (0-6); % Immature Granulocytes 0.4 % (0-0.5); % Lymphocytes 23.5 % (20.5-51.1); % Monocytes 11.6 % (1.7-9.3); Absolute Basophils 0.1 10^3/uL (0-0.2); Absolute Eosinophils 1.1 10^3/uL (0-0.7); Absolute Immature Granulocytes 0.1 10^3/uL (0-0.05); Absolute Lymphocytes 2.8 10^3/uL (1.2-3.4); Absolute Monocytes 1.4 10^3/uL (0.1-0.6); Absolute Neutrophils 6.6 10^3/uL (1.4-6.5); Hematocrit 30.7 % (39.0-52.0); Hemoglobin 10.2 g/dL (13.0-18.0); Mean Corp Hgb Conc. 33.2 g/dL (33.0-37.0); Mean Corpuscular Hgb 25.3 pg (27.0-31.0); Mean Corpuscular Volume 76.2 fL (80.0-94.0); Mean Platelet Volume 8.2 fL (7.4-10.4); Nucleated Red Blood Cells % 0 % (-); Platelet Count 243 10^3/uL (130-400); Red Blood Cell Count 4.03 10^6/uL (4.70-6.10); Red Cell Dist. Width 18.7 % (11.5-14.5)
[2023-11-16 07:40] VITALS: BP 111/77
[2023-11-16 07:41] LABS: Blood Urea Nitrogen 10 mg/dl (9-20); Calcium 8.7 mg/dl (8.4-10.2); Carbon Dioxide 30 mmol/L (22-30); Chloride 98 mmol/L (98-107); Estimated Creatinine Clearance 86 ml/min; Glucose 95 mg/dl (70-99); Potassium 4.6 mmol/L (3.5-5.1); Sodium 134 mmol/L (135-145); eGFR > 60.00
[2023-11-16] MEDS: FOLVITE 1 MG PO (08:54)
[2023-11-16] MEDS: VITAMIN B1 100 MG PO ×2 (08:54→19:57)
[2023-11-16] MEDS: NEURONTIN 600 MG PO ×2 (08:54→19:57)
[2023-11-16] MEDS: TYLENOL 1000 MG PO ×3 (08:54→23:08)
[2023-11-16] MEDS: PROTONIX IV 40 MG IV (08:54)
[2023-11-16] MEDS: NSS (PRESERVATIVE FREE) 10 ML IV (08:54)
[2023-11-16] MEDS: NORVASC 5 MG PO (08:55)
[2023-11-16] MEDS: VISBIOME 2 CAP PO (08:55)
[2023-11-16] MEDS: MIRALAX PO (08:59)
[2023-11-16] MEDS: HYDROPHOR 1 APPLIC TOPICAL (09:04)
[2023-11-16] MEDS: ROXICODONE 5 MG PO ×2 (09:15→17:56)
--- NOTE | 2023-11-16 09:35 | W.PN.ID1 ---
Date of Service
Date of Service: November 16, 2023
Today's Communication
- will attempt to attend dressing change with RN if patient remains in house
- continue zosyn
await transfer
Assessment / Plan
Chronic Venous Stasis wounds - acute infection
Regular exposure to health care environments
Closed R hip fracture
- recently on bactrim/levofloxacin; prior to that doxycycline/cipro per pharmacy records
- mrsa screen - negative
- blood cultures x2 remain no growth to date
- will attempt to attend dressing change with RN if patient remains in house
- continue zosyn
- continue probiotics
- patient has requested transfer to [facility] where his wounds are typically tended to
Chief Complaint
-: Other (wound infection)
Subjective / Review of Systems
afebrile
no overnight events
Vital Signs / Physical Exam
Vital Signs
Vital Signs
Temp Pulse Resp BP Pulse Ox
98.4 F 67 16 111/77 100
11/16/23 07:40 11/16/23 07:40 11/16/23 07:40 11/16/23 08:55 11/16/23 07:40
Physical Exam
Constitutional: No Acute Distress
Cardiovascular: Regular Rate and S1/S2; Negative Murmur or Rub
Pulmonary: Clear and Symmetric; Negative Wheezes or Rales
Gastrointestinal: Soft, Non Tender, Non Distended and Normal Bowel Sounds
Extremities: Other (dressings clean, dry, intact)
Skin: Warm and Dry; Negative Rash or Jaundice
Objective Data
Lab Data
Lab Results
11/16/23 06:52
11/16/23 06:52
ESR 37 mm/hour (0-20) H 11/13/23 07:47
PT 14.4 Sec (11.4-14.6) 11/12/23 23:08
INR 1.13 11/12/23 23:08
APTT 35.9 Sec (23.4-35.0) H 11/12/23 23:08
Estimated Creat Clear 86 ml/min 11/16/23 06:52
Total Bilirubin 0.4 mg/dl (0.2-1.3) 11/12/23 23:08
AST 31 U/L (17-59) 11/12/23 23:08
ALT 12 U/L (0-50) 11/12/23 23:08
Alkaline Phosphatase 103 U/L (38-126) 11/12/23 23:08
C-Reactive Protein 32.70 mg/L (0.0-10.00) H 11/13/23 07:47
Most recent labs reviewed.
Micro Results:
11/13/23 08:38 Blood Culture - Preliminary
Blood/Venous No Growth in 72 hours- Final report to follow
11/13/23 08:13 Blood Culture - Preliminary
Blood/Venous No Growth in 72 hours- Final report to follow
11/13/23 04:03 MRSA Screen - Final
Nose No Methicillin Resistant Staphylococcus aureus isolated.
--- NOTE | 2023-11-16 11:15 | CM ---
Reviewed the chart notes. Patient anticipates being transferred to [facility]. CM continues to be available to patient/family and is monitoring medical plan for needs at discharge.
Plan: [facility] when a bed becomes [facility].
--- NOTE | 2023-11-16 11:28 | PN.CDI ---
CDI
- -
CDI:
Physician Documentation Request
Admit Date: 11/13/23 02:00
Dear Doctor Erma,
Patient admitted for hip fracture.
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
11/14 Hospitalist PN: 'Venous Insufficiency, Chronic Venous Stasis Skin Changes, Chronic B/L LE Wounds with Suspicion for Underlying Infection - Recent increase in symptoms improving on PO abx per patient...On 11/13/23, I spoke with Dr. Ward
Julia (director power) at [facility] who said patient's wounds are growing MRSA and Pseudomonas'
Based on the above, could you clarify in the progress notes, the etiology of the wounds:
Multifactorial due to venous stasis and pyoderma gangrenosum
Venous stasis
Pyoderma Gangrenosum
Other
Unable to determine
Use of terms such as suspected, likely, concern for, or probable (associated with a specific diagnosis that is being evaluated, monitored, or treated as if it exists) are acceptable and can be coded in the inpatient setting, when documented at the
time of discharge.
Thank you,
Gwendolyn Paz RN, BSN
CDI Specialist
Available via [place] text
Please use your independent medical judgment in providing your response.
[2023-11-16 11:40] VITALS: BP 157/69
[2023-11-16 15:00] VITALS: BP 135/76
--- NOTE | 2023-11-16 16:25 | PTCARENOTE ---
Addendum entered by Shari Pearce RN 11/16/23 16:27:
goldsmith catheter removed this morning per order. pt using urinal at bedside. prn pain medication given to patient this shift. see MAR for proper documentation. IV zosyn still being given q6hr through L forearm IV site.
Original Note:
pt remains on bedrest while waiting for resolution of plan. transfer to [facility] OR for repair of R hip fracture here. this nurse was in contact with Ortho and MD throughout shift. waiting on information to be provided from [facility]. transfer center
still stating bed unavailable when in contact with this nurse. pt states he is willing to have the hip repaired here but just does not want to continue laying in bed in pain.
[2023-11-16] MEDS: LOVENOX 40 MG SC (17:38)
--- NOTE | 2023-11-16 18:51 | W.PN.HOSP.TC ---
Addendum entered and electronically signed by Jeferson Ritchie MD 11/16/23 18:58:
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
Original Note:
Today's Communication/Plan
-
-Continue antibiotics
-Dr. Harrison Hoang spoke to orthopedics at [place], transfer center and somebody at [facility] - they told Dr. Hoang will be transferred tonight since there is now an available bed. If he gets there tonight, they�re aware of the hip fracture and
will plan to take care of it tomorrow.
Assessment / Plan
Assessment / Plan
Physical Exam
General: Not in acute distress
HEENT: Moist mucous membranes
Respiratory: Clear to Auscultation Bilaterally
Cardiac: S1/S2 and Regular Rhythm
GI: Soft, Non Tender, Non Distended and Normal Bowel Sounds
Skin: Bilateral Lower Extremities Covered in Dressing
Neuro: AO x 3
Assessment/Plan
Patient is a 73 y/o male with past medical history significant for venous insufficiency and chronic venous stasis skin changes / wound presents to ED after trip and fall with R hip pain.
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 Has chronic LE wounds / venous stasis and is followed by Dr. Ed Dumont (rubber tire curer) at [place]. Was on PO antibiotics outpatient (does not know which) at
present. IV abx started on admission. BP uncontrolled - prob only in part due to pain. Unexplained anemia - work-up ordered / consented for transfusion. Regular EtOH use ([facility] protocol).
Right femoral neck fracture
- Pain control, NWB
- Ortho eval for eventual operative repair in the next 24 to 48 hours -- either at [facility] or here at [facility] if time to actual transfer is prolonged till the end of the week
- Increased risk for complications on the basis of chronic wounds, HTN and anemia.
- Benefits of planned procedure outweigh the potential risks and patient OK to proceed with OR without additional pre-op evaluation(s).
- PT / OT, pain control, etc per Ortho.
Hypertension History
-Was previously placed on BP meds but stopped these once his BP improved.
-Not on any antihypertensives at home
-SBP 170s to 190s noted on 11/13/23 -- have since improved overall after Amlodipine started
-Amlodipine 2.5 mg daily started on 11/13/23 with better control-->increased further to 5 mg daily for better control as blood pressure still high at times
-IV Hydralazine prn
Mechanical Fall
- Patient lost his balance when he stepped off a step that he did not know was there.
- No suspicious prodrome, LOC, etc.
- Mild head impact. No current symptoms / complaints in this regard.
- Consider GUE[employer] SERVICES REPRESENTATIVE imaging if any changes develop - but low suspicion.
Concern for Constipation
-Patient reports no bowel movement for ~1 week
-Abdominal X-ray: moderate fecal material present
-Miralax started; continue
Venous Insufficiency
Chronic Venous Stasis Skin Changes
Chronic B/L LE Wounds with Suspicion for Underlying Infection
- Recent increase in symptoms improving on PO abx per patient.
- Status post Vancomycin -- but Vancomycin now discontinued as MRSA is negative
- Continue Zosyn
- Continue probiotics
- On 11/13/23, I spoke with Dr. Ed Dumont (rubber tire curer) at [place] who said patient's wounds are growing MRSA and Pseudomonas
- Wound Care evaluation: continue wound care with non-adhesive dressings and aliginate and compressive dressings to b/l lower legs once daily
- Consulted ID, appreciate evaluation and recommendations
- Blood cultures with no growth to date
Normocytic Anemia
- Hgb = 9 and has been in this range since early 2023.
- Hgb currently stable
- Had significant surgery at [place] earlier this year and required blood products during that stay.
- No report of any evident blood loss, melena, etc per patient.
- He does take ibuprofen approx 1200mg daily and drinks alcohol on a near-daily basis.
- Heme test stools. PPI daily.
- Checked iron studies, which showed: Iron 91, TIBC 270, and % Iron Saturation at 33
- Consented for blood transfusion which he may require perioperatively.
ASCVD / PAD
- Patient has history of LOS to the L SFA.
- He is not currently on ASA - apparently due to allergy.
- No complaints of chest pain. No history of heart disease specifically.
DVT Prophylaxis
- Patient is at elevated risk for DVT given chronic venous disease, LE wounds, injury, immobility, etc.
- No mechanical devices given his LE wounds.
- Okay to give pharmacologic prophylaxis as per [place] Text discussion with Dr. Hoang on 11/14/23
Code Status: Full Code
On November 13, 2023, I called and spoke to patient's rubber tire curer, Dr. Ed Dumont (rubber tire curer) at [place], who mentioned that [facility] could not oversee care of patient's wounds because they didn't have the capability to do so, that a
recent wound culture showed MRSA and Pseudomonas and that patient would probably need IV antibiotics. Dr. Dumont's cell phone number is [phone] and contact numbers for the transfer center are [phone] and [phone]. I called and spoke
to [place] transfer center, Transfer Center spoke to Dr. Ed Dumont (patient's rubber tire curer at [facility]) who accepted the patient for transfer to be transferred emergently, once a bed is available. Dr. Harrison Hoang spoke to orthopedics at
[place], [facility] and somebody at [facility] - they told Dr. Hoang will be transferred tonight since there is now an available bed. If he gets there tonight, they�re aware of the hip fracture and will plan to take care of it tomorrow.
Anticipated Discharge: Within 24 hours
Subjective/Interval History
-
Date of Service: November 16, 2023
Patient was seen and examined. He reported discomfort at his hip fracture area, anxious about when surgery can be done or when transfer can happen.
Objective Data
-
Labs:
Laboratory Results
11/16/23
06:52
WBC 12.0 H
Hgb 10.2 L
Hct 30.7 L
Plt Count 243
Sodium 134 L
Potassium 4.6
Chloride 98
Carbon Dioxide 30
BUN 10
Creatinine 0.9
Glucose 95
Calcium 8.7
Vital Signs:
Vital Signs
Temp Pulse Resp BP Pulse Ox
98.3 F 75 18 135/76 98
11/16/23 15:00 11/16/23 15:00 11/16/23 15:00 11/16/23 15:00 11/16/23 15:00
I&O
11/15/23 11/16/23 11/17/23
06:59 06:59 06:59
Intake Total 830 / 830 1380 / 1380 1480 / 1480
Output Total 1525 / 1525 1675 / 1675 775 / 775
Balance -695 / -695 -295 / -295 705 / 705
--- NOTE | 2023-11-16 19:38 | PTCARENOTE ---
transfer center was called for this patient. bed is available. report called to [phone], pt going to [address] to room 537. transport set up for [id number]
[2023-11-16 23:41] VITALS: BP 153/68
[2023-11-17] MEDS: ROXICODONE 5 MG PO (01:13)
--- NOTE | 2023-11-17 01:38 | PTCARENOTE ---
Patient discharged to [facility]. Pain medicine given prior to D/C for pain control during transport. Picked up by acute care transport. Patient stable and understands plan.
--- NOTE | 2023-11-17 15:43 | CON.ORTHO ---
Consultation
-
Date/Time Consultation Performed: 11/13/2023 715 AM
Requesting Provider: Primary
Performing Provider: Natalya
Reason for Consultation: Right hip pain/fractre
Consultation - Orthopedics
History
73-year-old male history of chronic venous stasis changes bilateral lower extremities chronic bilateral extremity wounds presented to the emergency department status post mechanical fall with complaints of right hip pain and inability to bear
weight. He was subsequently diagnosed with a displaced right femoral neck fracture. He was admitted to the hospitalist service and orthopedics was consulted for further evaluation and treatment. 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
[employer] and lost his balance and tripped and fell onto his right hip. He felt immediate pain and inability to bear weight. He localizes pain to the right groin. Pain is made worse with palpation affected area with attempted
ambulation. This report that he had multiple surgeries on bilateral lower extremities and has been dealing with chronic wounds for several years. He is actively being treated at [facility] by wound care team including podiatry for
which she gets dressing changes multiple times per week. Reports that he is currently on active antibiotics for worsening active infection.
Allergies / Home Medications
Past medical history: Chronic venous stasis skin changes/ulcerations, peripheral arterial disease, peripheral neuropathy, hypertension, skin cancer
Past surgical history: Multiple grafts and debridements lower extremities
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
Social history: Not pertinent
Allergy/AdvReac Type Severity Reaction Status Date / Time
aspirin Allergy Swelling Verified 11/12/23 22:41
[From Excedrin Back and Body]
caffeine Allergy Swelling Verified 11/12/23 22:41
[From Excedrin Extra
Strength]
calcium carbonate Allergy Unknown Verified 11/12/23 22:41
[From Excedrin Back and Body]
�Medication �Instructions �Recorded
ascorbic acid (vitamin C) 500 mg 500 mg PO DAILY Supplement 02/06/23
tablet (Vitamin C)
therapeutic multivitamin 1 tab PO DAILY Supplement 02/06/23
gabapentin 600 mg tablet 600 mg PO DAILY Pain 11/13/23
ibuprofen 200 mg tablet 200 mg PO Q6H PRN increased pain 11/13/23
Vital Signs / Lab Results
Temp Pulse Resp BP Pulse Ox
98.2 F 73 16 153/68 92
11/16/23 23:41 11/16/23 23:41 11/16/23 23:41 11/16/23 23:41 11/16/23 23:41
11/17/23 06:00
11/17/23 06:00
10 point review systems reviewed and negative unless otherwise stated
General: Mildly uncomfortable appearing, obvious malodor
Musculoskeletal right lower extremity
Skin intact over hip, no erythema or ecchymotic staining over hip, bilateral lower extremities with dressings in place
Swelling exposed toes
Positive EHL, FHL, ankle dorsiflexion, plantarflexion
Toes warm pink
Extremity shortened and externally rotated
Diagnostic studies
X-rays right hip independently myself shows displaced right femoral fracture
Assessment / Plan
73-year-old male with displaced right femoral neck fracture in setting of active bilateral lower extremity infection from chronic wounds. I had a very long detailed discussion the patient regarding his diagnosis and treatment options. We discussed
both surgical and nonsurgical options. We discussed both fixation and arthroplasty options. I do think given his fracture pattern that he would likely benefit from a arthroplasty type procedure. We discussed both pros and cons of hemiarthroplasty
versus total hip arthroplasty. I explained to him that he would be at a significantly increased risk of infection given his ongoing bilateral lower extremity infections. I explained to him that an infected prosthesis would likely require further
surgeries and likely subsequent arthroplasty procedures would be less successful in terms of outcomes. We discussed the possibility of fixation although I really do think hide his fracture pattern would dictate an arthroplasty procedure.
Subsequent discussion with the patient he did wish to be transferred to [facility] where he is actively being treated for his wounds. He feels very strongly about keeping all of his care under the same facility. Certainly if his
transfer is significantly delayed we would consider likely hemiarthroplasty here. This was explained in detail to the patient. I also explained to him that we do try very hard to get people to the OR within 48 to 72 hours after sustaining injury.
He voiced understanding and was in agreement with this plan. Further treatment will be dictated upon transfer plans.
== END 2023-11-17 01:42 | disposition short-term general hospital (02) | DRG 536 ==
LOC: 2 NORTH 02:00
PROVIDERS: ADMITTING PHYSICIAN Hospitalist; ATTENDING PHYSICIAN Hospitalist; CONSULT PHYSICIAN Orthopaedic Surgery; CONSULT PHYSICIAN Podiatrist Foot & Ankle Surgery; EMERGENCY PHYSICIAN Emergency Medicine; FAMILY PHYSICIAN Family Medicine; OTHER PHYSICIAN Student in an Organized Health Care Education/Training Program
DX: S72.001A Fracture of unspecified part of neck of right femur, initial encounter for closed fracture (principal); L97.919 Non-pressure chronic ulcer of unspecified part of right lower leg with unspecified severity; L97.929 Non-pressure chronic ulcer of unspecified part of left lower leg with unspecified severity; L88 Pyoderma gangrenosum; L03.116 Cellulitis of left lower limb; L03.115 Cellulitis of right lower limb; M25.461 Effusion, right knee; M10.9 Gout, unspecified; I10 Essential (primary) hypertension; I73.9 Peripheral vascular disease, unspecified; W01.198A Fall on same level from slipping, tripping and stumbling with subsequent striking against other object, initial encounter; Y93.89 Activity, other specified; Y92.232 Corridor of hospital as the place of occurrence of the external cause; Y99.0 Civilian activity done for income or pay; G62.9 Polyneuropathy, unspecified; I87.8 Other specified disorders of veins; I87.2 Venous insufficiency (chronic) (peripheral); I25.10 Atherosclerotic heart disease of native coronary artery without angina pectoris; D64.9 Anemia, unspecified; D72.829 Elevated white blood cell count, unspecified; F17.200 Nicotine dependence, unspecified, uncomplicated; I83.018 Varicose veins of right lower extremity with ulcer other part of lower leg; I83.025 Varicose veins of left lower extremity with ulcer other part of foot; Z85.828 Personal history of other malignant neoplasm of skin; Z79.82 Long term (current) use of aspirin; Z79.52 Long term (current) use of systemic steroids; Z88.6 Allergy status to analgesic agent; Z88.8 Allergy status to other drugs, medicaments and biological substances; Z91.048 Other nonmedicinal substance allergy status
CPT/HCPCS: 73502; 74018; 80048; 80053; 81003; 82607; 83540; 83550; 83735; 85025; 85027; 85610; 85652; 85730; 86140; 86850; 86900; 86901; 87040; 87070; 93005; 96374; 99285

== ENCOUNTER 2023-12-19 15:08 | Inpatient (IN) | payer MEDICARE, SELFPAY ==
[2023-12-19] VITALS (8 sets, daily range): BP systolic 132–154; BP diastolic 46–85; BMI 24.6
--- NOTE | 2023-12-19 11:52 | ED.GENMED ---
History of Present Illness
<Alyce Flores PA-C - Last Filed: 12/19/23 15:28>
General
Chief Complaint: Abnormal Lab Value
Source: patient
Exam Limitations: none
Time Seen by Provider: 12/19/23 11:51
Nursing documentation reviewed up to this point in time: agreed with
History of Present Illness
History of Present Illness:
73-year-old male past medical history of hypertension, pyogenic gangrenosum, venous insufficiency presents emergency department today with concerns of an abnormal lab value. Patient comes from [facility] where he gets rehab for his recent right
hip replacement as well as care for his bilateral lower extremity wounds and circulation issues. Patient reports that he had routine lab work drawn a few days ago and states that today, he was told that his creatinine is elevated and was told to go
to the emergency department. Patient denies urinary retention, dark urine, hematuria, burning with urination, abdominal pain, muscle aches, nausea or vomiting, shortness of breath, chest pain. Patient does report that he was told that he had an
elevated PSA level recently and was told that he needs an MRI. Patient denies any new medications. Patient denies any confusion, dizziness, lightheadedness. Patient states that he barely walks due to his recent hip and leg surgeries.
Past History
<Alyce Flores PA-C - Last Filed: 12/19/23 15:28>
Past History
ED Past Medical History: Cancer (skin cancer left calf), HTN, Other (PVD Bilateral lower leg wounds, peripheral neuropathy, chronic peripheral edema) and Other (Gout)
ED Past Surgical History: Orthopedic (Right knee surgery) and Other (Right facial reconstructioin)
Social History
Tobacco: Former smoker
Alcohol: Daily (Beer 5)
Drug: None
Personal: Other (Seperated)
Living: alone
Employment: Employed ([employer])
Family History
Family History: Other (Noncontributory)
Review of Systems
<Alyce Flores PA-C - Last Filed: 12/19/23 15:28>
Review of Systems
All Other Systems: ROS reviewed and negative except as documented in HPI and ROS
Phy Exam
<Alyce Flores PA-C - Last Filed: 12/19/23 15:28>
Physical Exam
Physical Exam:
General: Patient is well appearing and in no acute distress; non-toxic
Skin: Warm and dry, no rashes or lesions
Head: Normocephalic, atraumatic
Eyes: Sclera non-icteric. EOMs intact.
Cardiac: Regular rate and rhythm, no murmurs
Peripheral Vascular: Bilateral lower extremity edema with kai bandages in place
Pulm: Normal respiratory effort, mild crackles heard on the left
Abdomen: No abdominal tenderness to palpation, no CVA tenderness bilaterally
Neuro: CN II-XII intact, no focal neurologic deficits.
Psychiatric: Appropriate mood and affect.
Course
<Alyce Flores PA-C - Last Filed: 12/19/23 15:28>
Orders/Labs/Results
Orders:
Orders
12/19/23 11:52
IV Insert/Care/Rem.- Treatment PRN
12/19/23 11:57
Complete Blood Count/With Diff Urgent
Comprehensive Metabolic Panel Urgent
Ferritin Urgent
Folate Urgent
Iron Urgent
Magnesium Urgent
Serum Osmolality Urgent
Comment: ADD ON
TSH Reflex To Free T4 Urgent
Comment: FERRITIN,TIBC,IRON,B12,FOLATE,TSH REFLEX ADDED ON BY FLOOR 1:45PM 12-19-23
Total Iron Binding Urgent
Vitamin B12 Urgent
12/19/23 12:19
CR Chest - 2 Views Urgent
Comment:
Reason For Exam: wheezing
12/19/23 12:32
Add On- LAB Urgent
Tests Added?: magnesium
Electrocardiogram (*1) Urgent
Reason for Study: Fatigue / Weakness
EKG- Treatment ONCE
12/19/23 12:36
Add On- LAB Urgent
Tests Added?: serum osmolality
12/19/23 12:49
Kidney & Bladder US [US Renal With Bladder] Urgent
Comment:
Reason For Exam: new onset renal failure
12/19/23 12:50
Add On - Microbiology Urgent
Tests Added?: urine creatinine
12/19/23 12:56
Bladder Scan- Treatment ONCE
12/19/23 13:39
NEPHROLOGY CONSULT Urgent
Consulting Provider: Loren Piper
Was physician already notified: Yes
Elizabeth Placement- Treatment ONCE
Reason for insertion: Acute Kidney Injury
12/19/23 13:43
Add On- LAB Urgent
Tests Added?: tsh with free t4 reflex
12/19/23 13:49
Add On- LAB Urgent
Tests Added?: Ferritin, TIBC, iron, B12, folate
12/19/23 14:26
WOUND/OSTOMY CONSULT Routine
Reason for Consult: bilat lower extremity skin grafts /wounds
12/19/23 14:32
Admit/Transfer Patient As Directed
Co-Sign Provider:
Level of Care: Inpatient admission
Assign to:: IMU- Intermediate Care
Physician / Group: hilda Chappell
Diagnosis: Acute ARF, asymptomatic hyponatremia, hyperkalemia, anemia microcytic
Reason for Hospitalization: Acute ARF, asymptomatic hyponatremia, hyperkalemia, anemia microcytic
Expected length of stay greater than two midnights?: Yes
ELOS- Estimated Length of Stay in days: 6
I certify the patient meets the requirements for IP care: Yes
12/19/23 14:35
Code Status As Directed
Resuscitation Status: Full Code
12/19/23 14:38
PRN Pain Medication Management As Directed
May give lesser potent ordered pain med per pt: Yes
preference::
Protocol:: Medication orders for pain may be administered in a
manner that supports deferring to patient preference
when the pt is:
- Requesting an ordered lesser potent pain medication.
Least to most potent pain medications are defined
as: acetaminophen < NSAID < tramadol < opioids
(morphine, oxycodone, hydromorphone).
- Requesting a lesser dose of the same medication IF
ORDERED.
- Requesting a less intrusive route of administration
if both routes are prescribed by the provider (PO <
IV).
12/19/23 14:45
0.9% Sodium Chloride 1000 ml [Nss] 1,000 ml IV 80 mls/hr
12/19/23 15:13
Osmolality, Random Urine Urgent
Date Specimen was Collected: 12/19/23
Time Specimen was Collected: 14:31
Urinalysis Reflex To Culture Urgent
Date Specimen was Collected: 12/19/23
Time Specimen was Collected: 14:31
Urine - Eosinophils [Body Fluid for Eosinophils] Routine
Fluid Source: Urine
Date Specimen was Collected: 12/19/23
Time Specimen was Collected: 14:32
Urine Sodium Routine
Date Specimen was Collected: 12/19/23
Time Specimen was Collected: 14:32
Abnormal Lab Results
12/19/23
11:57
WBC 12.1 H 10^3/uL
(4.8-10.8)
RBC 3.79 L 10^6/uL
(4.70-6.10)
Hgb 9.2 L g/dL
(13.0-18.0)
Hct 27.4 L %
(39.0-52.0)
MCV 72.3 L fL
(80.0-94.0)
MCH 24.3 L pg
(27.0-31.0)
RDW 16.9 H %
(11.5-14.5)
Abs Immat Gran (auto) 0.1 H 10^3/uL
(0-0.05)
Absolute Monos (auto) 1.4 H 10^3/uL
(0.1-0.6)
Absolute Eos (auto) 1.7 H 10^3/uL
(0-0.7)
Monocytes % 11.7 H %
(1.7-9.3)
Eosinophils % 13.7 H %
(0-6)
Sodium 123 L mmol/L
(135-145)
Potassium 5.4 H mmol/L
(3.5-5.1)
Chloride 87 L mmol/L
(98-107)
BUN 40 H mg/dl
(9-20)
Creatinine 7.9 H* mg/dL
(0.7-1.3)
Glucose 105 H mg/dl
(70-99)
Serum Osmolality 260 L mOsm/kg
(275-300)
Iron 35 L ug/dl
(49-181)
TIBC 256 L ug/dl
(261-462)
% Saturation 13 L %
(20-50)
Total Protein 5.7 L g/dl
(6.3-8.2)
Albumin 3.3 L g/dl
(3.5-5.0)
12/19/23 11:57
12/19/23 11:57
Vital Signs
Initial and Last Documented VS:
Initial Vital Signs
Temp Pulse Resp Pulse Ox
98.3 F 67 13 98
12/19/23 11:52 12/19/23 11:52 12/19/23 11:52 12/19/23 11:52
Last Documented Vital Signs
Temp Pulse Resp BP Pulse Ox
98.3 F 59 12 147/59 93
12/19/23 11:52 12/19/23 15:15 12/19/23 15:15 12/19/23 15:09 12/19/23 15:09
<Gene Robledo MD - Last Filed: 12/19/23 12:57>
Orders/Labs/Results
Orders:
Orders
12/19/23 11:52
IV Insert/Care/Rem.- Treatment PRN
12/19/23 11:57
Complete Blood Count/With Diff Urgent
Comprehensive Metabolic Panel Urgent
Ferritin Urgent
Folate Urgent
Iron Urgent
Magnesium Urgent
Serum Osmolality Urgent
Comment: ADD ON
TSH Reflex To Free T4 Urgent
Comment: FERRITIN,TIBC,IRON,B12,FOLATE,TSH REFLEX ADDED ON BY FLOOR 1:45PM 12-19-23
Total Iron Binding Urgent
Vitamin B12 Urgent
12/19/23 12:19
CR Chest - 2 Views Urgent
Comment:
Reason For Exam: wheezing
12/19/23 12:32
Add On- LAB Urgent
Tests Added?: magnesium
Electrocardiogram (*1) Urgent
Reason for Study: Fatigue / Weakness
EKG- Treatment ONCE
12/19/23 12:36
Add On- LAB Urgent
Tests Added?: serum osmolality
12/19/23 12:49
Kidney & Bladder US [US Renal With Bladder] Urgent
Comment:
Reason For Exam: new onset renal failure
12/19/23 12:50
Add On - Microbiology Urgent
Tests Added?: urine creatinine
12/19/23 12:56
Bladder Scan- Treatment ONCE
12/19/23 13:39
NEPHROLOGY CONSULT Urgent
Consulting Provider: Loren Piper
Was physician already notified: Yes
Elizabeth Placement- Treatment ONCE
Reason for insertion: Acute Kidney Injury
12/19/23 13:43
Add On- LAB Urgent
Tests Added?: tsh with free t4 reflex
12/19/23 13:49
Add On- LAB Urgent
Tests Added?: Ferritin, TIBC, iron, B12, folate
12/19/23 14:26
WOUND/OSTOMY CONSULT Routine
Reason for Consult: bilat lower extremity skin grafts /wounds
12/19/23 14:32
Admit/Transfer Patient As Directed
Co-Sign Provider:
Level of Care: Inpatient admission
Assign to:: IMU- Intermediate Care
Physician / Group: hilda Chappell
Diagnosis: Acute ARF, asymptomatic hyponatremia, hyperkalemia, anemia microcytic
Reason for Hospitalization: Acute ARF, asymptomatic hyponatremia, hyperkalemia, anemia microcytic
Expected length of stay greater than two midnights?: Yes
ELOS- Estimated Length of Stay in days: 6
I certify the patient meets the requirements for IP care: Yes
12/19/23 14:35
Code Status As Directed
Resuscitation Status: Full Code
12/19/23 14:38
PRN Pain Medication Management As Directed
May give lesser potent ordered pain med per pt: Yes
preference::
Protocol:: Medication orders for pain may be administered in a
manner that supports deferring to patient preference
when the pt is:
- Requesting an ordered lesser potent pain medication.
Least to most potent pain medications are defined
as: acetaminophen < NSAID < tramadol < opioids
(morphine, oxycodone, hydromorphone).
- Requesting a lesser dose of the same medication IF
ORDERED.
- Requesting a less intrusive route of administration
if both routes are prescribed by the provider (PO <
IV).
12/19/23 14:45
0.9% Sodium Chloride 1000 ml [Nss] 1,000 ml IV 80 mls/hr
12/19/23 15:13
Osmolality, Random Urine Urgent
Date Specimen was Collected: 12/19/23
Time Specimen was Collected: 14:31
Urinalysis Reflex To Culture Urgent
Date Specimen was Collected: 12/19/23
Time Specimen was Collected: 14:31
Urine - Eosinophils [Body Fluid for Eosinophils] Routine
Fluid Source: Urine
Date Specimen was Collected: 12/19/23
Time Specimen was Collected: 14:32
Urine Sodium Routine
Date Specimen was Collected: 12/19/23
Time Specimen was Collected: 14:32
Abnormal Lab Results
12/19/23
11:57
WBC 12.1 H 10^3/uL
(4.8-10.8)
RBC 3.79 L 10^6/uL
(4.70-6.10)
Hgb 9.2 L g/dL
(13.0-18.0)
Hct 27.4 L %
(39.0-52.0)
MCV 72.3 L fL
(80.0-94.0)
MCH 24.3 L pg
(27.0-31.0)
RDW 16.9 H %
(11.5-14.5)
Abs Immat Gran (auto) 0.1 H 10^3/uL
(0-0.05)
Absolute Monos (auto) 1.4 H 10^3/uL
(0.1-0.6)
Absolute Eos (auto) 1.7 H 10^3/uL
(0-0.7)
Monocytes % 11.7 H %
(1.7-9.3)
Eosinophils % 13.7 H %
(0-6)
Sodium 123 L mmol/L
(135-145)
Potassium 5.4 H mmol/L
(3.5-5.1)
Chloride 87 L mmol/L
(98-107)
BUN 40 H mg/dl
(9-20)
Creatinine 7.9 H* mg/dL
(0.7-1.3)
Glucose 105 H mg/dl
(70-99)
Serum Osmolality 260 L mOsm/kg
(275-300)
Iron 35 L ug/dl
(49-181)
TIBC 256 L ug/dl
(261-462)
% Saturation 13 L %
(20-50)
Total Protein 5.7 L g/dl
(6.3-8.2)
Albumin 3.3 L g/dl
(3.5-5.0)
12/19/23 11:57
12/19/23 11:57
Vital Signs
Initial and Last Documented VS:
Initial Vital Signs
Temp Pulse Resp Pulse Ox
98.3 F 67 13 98
12/19/23 11:52 12/19/23 11:52 12/19/23 11:52 12/19/23 11:52
Last Documented Vital Signs
Temp Pulse Resp BP Pulse Ox
98.3 F 59 12 147/59 93
12/19/23 11:52 12/19/23 15:15 12/19/23 15:15 12/19/23 15:09 12/19/23 15:09
Anithalt;Alyce Flores PA-C - Last Filed: 12/19/23 15:28>
MDM/Problems Addressed
Differential Diagnosis Includes:
Acute renal failure: ddx include urinary tract obstruction, dehydration, acute tubular necrosis, nephrotic syndrome, rhabdomyolysis
MDM/Problems Addressed:
73-year-old male with a history of hypertension, chronic venous insufficiency, presents emergency department today in new onset acute renal failure. Patient is completely asymptomatic at this time and this was discovered on routine blood work. He
denies any urinary symptoms, dark urine, urinary retention. He denies any fevers or chills, chest pain, shortness of breath, coughing. Had routine lab work done a few days ago and was found to have BUN of 36, creatinine of 6.80, sodium 122 and was
told to report to the ER. Today his BUN is 40 and creatinine is 7.9 (ratio 5.06), sodium is 123, and potassium is 5.4. Today on exam his vital signs are stable, he is awake and alert, he has mild crackles on the left side of his lungs but in no
acute respiratory distress, he does have chronic bilateral lower extremity edema. Will send off for urine and serum osmolality, renal ultrasound, bladder scan for retention, will obtain chest x-ray. Nephrology made aware, will admit to hospitalist
for further workup of new onset renal failure. No indications for emergent dialysis at this time
Chronic conditions affecting care:
HTN, chronic venous insufficiency
<Alyce Flores PA-C - Last Filed: 12/19/23 15:28>
*Pulse Oximetry
Patient hypoxic: no
*Critical Care Note
Total Time (30-74mins, 75-104mins- exclusive of procedures): Not Applicable
Data Reviewed
Review of Other/Old Records Reveals: Records (Reviewed discharge summary from 11/16/2023, reviewed ER physician mentation from 11/12/2023, reviewed previous chemistry panels)
Source: patient and records
Prescriptions/Medications Considered But Not Given:
n/a
Further Testing Considered But Not Given:
n/a
<Alyce Flores PA-C - Last Filed: 12/19/23 15:28>
Patient Management
Escalation/DeEscalation of care consider admission/obs:
Patient referred for admission
ED Attending Note
<Alyce Flores PA-C - Last Filed: 12/19/23 15:28>
-
Portions of this chart may have been created with voice recognition software.� Occasional wrong word or��sound alike� substitutions may have occurred due to the inherent limitations of voice recognition software.
<Gene Robledo MD - Last Filed: 12/19/23 12:57>
ED Attending Note
Patient seen and examined by attending physician: Yes
I performed the substantive portion of visit, reviewed & personally made and approve the management plan that is documented in note by myself or KENNA.: Yes
ED Attending Note:
Patient is a 73-year-old male with history of hypertension, venous insufficiency with chronic wounds followed by a group in [place], recent hip replacement plan to the emergency department with elevated creatinine. Patient is currently at
rehab and had routine blood work done which showed a creatinine of 6.98. He was in here to the emergency department for further evaluation. He denies any history of issues with his kidneys. He has been urinating like normal. No hesitancy
difficulty urinating or urgency. No fevers or chills. No back pain. He has been well-hydrated. He does not feel volume overloaded. He denies any difficulty breathing. He states that the leg swelling has been constant. He denies any new
medications.
GENERAL: in no acute distress
HEENT: normocephalic, extraocular movements intact, moist oral mucosa
NECK: normal inspection
RESPIRATORY: no respiratory distress, clear to auscultation bilaterally
CARDIOVASCULAR: regular rate and rhythm
ABDOMEN/: soft, non-distended, non-tender to palpation, no rebound or guarding
EXTREMITIES: non-tender, bilateral lower extremities wrapped in Kai bandages, edema bilaterally
NEUROLOGIC: awake and alert, moves all extremities
SKIN: warm
73-year-old man presenting to the emergency department with elevated creatinine. Vitals here are unremarkable and exam does show some edema bilaterally to the lower extremities lungs are clear to auscultation. Blood work here showed an elevated
creatinine of 7.9. BUN is 40. He is hyponatremic. Will add on urine sodium urine creatinine and urine osm. Will obtain EKG as well as chest x-ray. Will discuss with nephrology and obtain a kidney ultrasound. Also obtain a bladder scan.
Patient will need admission for his new onset kidney failure.
Discharge Plan
Departure
Patient Disposition: Admit
Date of Disposition: 12/19/23
Time of Disposition: 13:37
Admit to: Med/Surg
Presentation/result/management discussed w/ accepting MD/DO: Hospitalist
Patient with high blood pressure during this ER visit?: Yes
Condition: Fair
Discharge Problem:
Acute renal failure
Interventions
Interventions:
*Risk Screen - Suicide Last Done: 12/19/23 11:52
*General Assessment Last Done: 12/19/23 11:52
*Neglect/Abuse Screening Last Done: 12/19/23 11:52
*ED COVID-19 Vaccine History Last Done: 12/19/23 11:52
[2023-12-19 12:17] LABS: % Basophils 0.4 % (0-2); % Eosinophils 13.7 % (0-6); % Immature Granulocytes 0.4 % (0-0.5); % Lymphocytes 26.8 % (20.5-51.1); % Monocytes 11.7 % (1.7-9.3); Absolute Basophils 0.1 10^3/uL (0-0.2); Absolute Eosinophils 1.7 10^3/uL (0-0.7); Absolute Immature Granulocytes 0.1 10^3/uL (0-0.05); Absolute Lymphocytes 3.2 10^3/uL (1.2-3.4); Absolute Monocytes 1.4 10^3/uL (0.1-0.6); Absolute Neutrophils 5.7 10^3/uL (1.4-6.5); Hematocrit 27.4 % (39.0-52.0); Hemoglobin 9.2 g/dL (13.0-18.0); Mean Corp Hgb Conc. 33.6 g/dL (33.0-37.0); Mean Corpuscular Hgb 24.3 pg (27.0-31.0); Mean Corpuscular Volume 72.3 fL (80.0-94.0); Mean Platelet Volume 8.3 fL (7.4-10.4); Nucleated Red Blood Cells % 0 % (-); Platelet Count 254 10^3/uL (130-400); Red Blood Cell Count 3.79 10^6/uL (4.70-6.10); Red Cell Dist. Width 16.9 % (11.5-14.5); White Blood Cell Count 12.1 10^3/uL (4.8-10.8)
[2023-12-19 12:34] LABS: ALT (SGPT) 16 U/L (0-50); AST (SGOT) 35 U/L (17-59); Albumin 3.3 g/dl (3.5-5.0); Alkaline Phosphatase 106 U/L (38-126); Blood Urea Nitrogen 40 mg/dl (9-20); Calcium 8.8 mg/dl (8.4-10.2); Carbon Dioxide 23 mmol/L (22-30); Chloride 87 mmol/L (98-107); Estimated Creatinine Clearance 10 ml/min; Glucose 105 mg/dl (70-99); Potassium 5.4 mmol/L (3.5-5.1); Sodium 123 mmol/L (135-145); Total Bilirubin 0.3 mg/dl (0.2-1.3); Total Protein 5.7 g/dl (6.3-8.2); eGFR 6.61
--- NOTE | 2023-12-19 13:48 | HPS.HSE ---
Family Physician
-
Family Physician: Norma Cortez
Chief Complaint
-
Abnormal lab work
History of Present Illness
73-year-old male from [facility] rehab status post partial right hip arthroplasty early November 2023 at [facility] with abnormal blood work showing elevated creatinine 6.8/bun 36 and sodium 122 today with creatinine of 7.9, potassium 5.4 and NA
123. The patient denies urinary symptoms, retention, dark urine, fever, chills, chest pain, palpitations, shortness of breath, abdominal pain, nausea, vomiting, diarrhea. He denies any new medications, although it appears his atenolol was changed
to losartan 25 mg twice daily 1 month ago at [facility]. He takes ibuprofen 600 mg every 8 hours as needed for pain. He does state he had a recent elevated PSA and needed an outpatient MRI. He had Elizabeth catheter inserted in the ER with
800 cc of clear yellow urine obtained.
He has past medical history of pyoderma gangrenosum, angioplasty left superficial femoral artery stenosis 09/02/[address] Elizabeth, PVD, chronic right lower extremity open ulceration/chronic wounds left lower extremity status post debridement with
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
2022
Medical History
Past Medical History
Past Medical History: Reports Other
Additional Past Medical History:
HTN
HLD
obesity
alcohol abuse
Raynaud's to hands
former smoker
pyoderma gangrenosum
angioplasty left superficial femoral artery stenosis 09/02/[address] Elizabeth
PVD,
chronic right lower extremity open ulcerations to muscle, chronic left lower extremity wounds all status post debridement with grafting at [facility]23
chronic microcytic anemia
elevated PSA
hyponatremia
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
Past Surgical History: Reports Other
Additional Past Surgical History:
Facial Reconstruction
Vein Stripping
LE Debridement / Skin Grafting (June 2023)
Skin Cancer Excision
chronic right lower extremity open ulcerations to muscle, chronic left lower extremity wounds all status post debridement with grafting at [facility]23
Social History
Tobacco: Former Smoker (Quit smoking about 40 years ago. Approx 20 pack years total use.)
Alcohol: Daily (Nearly daily EtOH use. Several beers on average.)
Drug: None
Family History
Family History: Other (PGM - DM Father age 83 old age, history HTN, mother age 93 old age)
Allergies / Home Medications
Allergies reflects when Allergies were last updated in [facility].
Home Medications with original date entered in [facility]
Allergy/Medication List:
Allergies
Allergy/AdvReac Type Severity Reaction Status Date / Time
aspirin Allergy Swelling Verified 11/12/23 22:41
[From Excedrin Back and Body]
caffeine Allergy Swelling Verified 11/12/23 22:41
[From Excedrin Extra
Strength]
calcium carbonate Allergy Unknown Verified 11/12/23 22:41
[From Excedrin Back and Body]
Home Medications
ascorbic acid (vitamin C) 500 mg tablet (Vitamin C) 500 mg PO DAILY Supplement 02/06/23
therapeutic multivitamin 1 tab PO DAILY Supplement 02/06/23
gabapentin 600 mg tablet 600 mg PO TID 11/13/23
ibuprofen 200 mg tablet 600 mg PO Q8HPRN PRN mild pain 11/13/23
acetaminophen 325 mg tablet (Tylenol) 650 mg PO Q4HPRN PRN mild pain 12/19/23
aspirin 81 mg tablet,delayed release 81 mg PO BID 12/19/23
bisacodyl 10 mg rectal suppository (Dulcolax (bisacodyl)) 10 mg NM DAILYPRN PRN if no bm aftr mom 12/19/23
ciprofloxacin HCl 500 mg tablet 500 mg PO BID 12/19/23
clobetasol 0.05 % topical ointment 1 applic topical DAILY eczema,psoriasis,rash 12/19/23
docusate sodium 100 mg capsule (Colace) 100 mg PO DAILY 12/19/23
losartan 25 mg tablet 25 mg PO BID 12/19/23
magnesium hydroxide 400 mg/5 mL oral suspension (Milk of Magnesia) 2,400 mg PO [id number] PRN constipation 12/19/23
mupirocin 2 % topical ointment 1 applic topical DAILYPRN PRN impetigo 12/19/23
oxycodone 5 mg tablet 5 mg PO Q8HPRN PRN severe pain 12/19/23
rosuvastatin 40 mg tablet (Crestor) 40 mg PO HS 12/19/23
sodium phosphates 19 gram-7 gram/118 mL enema (Fleet Enema) 118 ml NM DAILYPRN PRN if no bm aftr dulcolax 12/19/23
tamsulosin 0.4 mg capsule (Flomax) 0.4 mg PO DAILY 12/19/23
vitamins A,C,U-ecyp-ohvrmw 2,148 mcg-113 mg-45 mg-17.4 mg tablet (PreserVision AREDS) 1 tab PO DAILY 12/19/23
Review of Systems
-
A 12 point ROS was completed and negative except as noted: Yes
Constitutional: Denies Fever, Weight Gain, Weight Loss, Fatigue or Chills
EENT: Denies Sore Throat or Runny Nose
Respiratory: Denies Cough or Trouble Breathing
Cardiac: Denies Chest Pain, Diaphoresis, Palpitations or Syncope
Abdomen/GI: Denies Abdominal Pain, Nausea, Vomiting, Diarrhea, Constipated, Bloody Stools or Black Stools
: Denies Dysuria, Frequency, Flank Pain, Incontinence, Difficulty Voiding or Urgency
Musculoskeletal: Reports Other (Chronic leg wounds with dressings applied from knee to feet appear to be kinesiology tape with Tubigrip's over); Denies Joint Pain or Edema
Skin: Denies Itching or Rash
Neurological: Denies Dizzy, Headache or Weakness
Endocrine: Reports No Symptoms
Hematologic/Lymphatic: Reports No Symptoms
Psych: Reports Calm
Physical Exam
Vital Signs
Vital Signs
Temp Pulse Resp BP Pulse Ox
98.3 F 59 14 132/85 98
12/19/23 11:52 12/19/23 12:30 12/19/23 12:30 12/19/23 12:00 12/19/23 12:00
Physical Exam
General: Comfortable and Conversant; No Pain or Fever
HEENT: NormoCephalic, Anicteric, PERRLA, [place] Conjunctivae, No Ptosis and Neck Nontender
Respiratory: Clear; No Wheezes, Rales or Rhonchi
Cardiac: S1/S2, Regular Rhythm and Murmur (2/6 systolic); No Rub or Gallop
Breast: Deferred by me
GI: Soft, Non Tender, Non Distended, Normal Bowel Sounds and No Hepatosplenomegaly
Rectal: Deferred by Provider
Genito-urinary: Elizabeth (Inserted in ER by nurse with 800 cc clear yellow urine obtained upon insertion)
Musculoskeletal: No Clubbing, No Cyanosis and Other (Chronic leg wounds/grafts with dressings applied from knee to feet appear to be kinesiology tape with Tubigrip's over)
Skin: Warm and Dry
Neuro: AO x 3, Nonfocal/grossly intact, Cranial Nerves Intact, No Sensory Deficits and Other (Ambulatory dysfunction chronic secondary to nonweightbearing right leg due to right hip arthroplasty); No Slurred Speech, Facial Droop, Tremors or Sedated
Psych: Calm
Laboratory Results
-
12/19/23 11:57
12/19/23 11:57
Laboratory Results
Total Bilirubin 0.3 mg/dl (0.2-1.3) 12/19/23 11:57
AST 35 U/L (17-59) 12/19/23 11:57
ALT 16 U/L (0-50) 12/19/23 11:57
Alkaline Phosphatase 106 U/L (38-126) 12/19/23 11:57
Impression/Plan
-
Impression/plan:
Admit to IMU
#Acute renal failure unclear etiology
Creat 7.9/bun 40
-Renal bladder ultrasound
-Elizabeth catheter inserted 800 cc urine clear yellow obtained
-Consult nephro
-Check urine eosinophilia, urine Crea
-Hold nephrotoxic meds, hold ibuprofen 600 mg every 8 hours as needed
-Hold losartan 25 mg twice daily
-Hold Cipro 500 mg twice daily
-De-escalate gabapentin from 600 mg tid to 100 mg 3 tid given pt ARF CrCl 10
-IV NSS 80 cc/h
-Follow BMP every 6 hours
#Hyperkalemia in setting of ARF
K5.4
-Check magnesium
-Hold losartan 25 mg twice daily
-Hold Cipro 500 mg twice daily
#Asymptomatic hyponatremia/Hx hyponatremia
NA 123
-Check urine NA, urine Osmo, serum Osmo, TSH with reflex T4
#Right hip fracture femoral neck with displaced status post ORIF early November 2023
-Was repaired at [facility] partial arthroplasty per patient
-Continue oxycodone 5 mg every 8 hours as needed severe pain, Tylenol 650 mg every 4 hours mild pain
-Was started on Cipro 500 mg twice daily 11/24/2023
-Hold Cipro 500 mg twice daily
# Prior alcohol abuse-stopped November 13, 2023
4-6 beers daily
#Microcytic anemia Likely IRON DEFICIENCY with New ARF
Creat 9.2, MCV 72.3-appears near baseline dating back from May 2023
-Check iron panel, B12, folate
-Heme check stools
#HTN�benign
BP 132/85
-Hold losartan 25 mg twice daily due to ARF
#Left lower extremity cellulitis chronic ulcerations dx 01/2023 /Hx pyoderma gangrenosum BX 2019
#PVD-recent angioplasty left superficial femoral artery stenosis 09/02/2022
# Hx Large right lower extremity ulceration with tendon visualization/increased peripheral edema RLE
#History Left lower extremity ulcerations
-Status post debridement and skin grafting of both lower extremities June 2023 at [facility]
-Consult wound care
---De-escalate gabapentin from 600 mg tid to 100 mg 3 tid given pt ARF CrCl 10
#Hx RA
-Was on Remicade with last infusion February 2023
#History of squamous cell CA bilateral legs 2019 treated at [facility]
#BPH/elevated PSA Hx
-cont Flomax
#HLD
-Continue Crestor
#Raynaud's bilateral hands
# Prior obesity due to excess calorie consumption
-BMI 30.6 kg jan 2023 now 24.6 kg = 13.2 pounds / 6 kg weight loss in 11 months
DVT prophylaxis
Subcu heparin
Full code
[2023-12-19 13:58] LABS: Magnesium 2.3 mg/dl (1.6-2.3)
[2023-12-19 14:07] LABS: Osmolality Serum 260 mOsm/kg (275-300)
[2023-12-19 14:17] LABS: Iron 35 ug/dl (49-181)
--- NOTE | 2023-12-19 14:17 | W.PN.UPDATE ---
Update Note
Progress Note Update
This note serves as an addendum to the H&P by drill runner helper KENNA Barbi ESPINAL,
HPI
73M sent from [facility] s/p THR a week ago with PMH significant for chronic venous stasis disease with b/l LE wounds, HTN, pyogenic gangrenosum seen at ER for
abn routine lab work: BUN of 36, creatinine of 6.80, sodium 122 and was told to report to the ER. Today his BUN is 40 and creatinine is 7.9 (ratio 5.06), sodium is 123, and potassium is 5.4. He is completely asymptomatic.
New onset acute renal failure. Prior renal function had always been WNL.
On exam he is well appearing, some mild lower extremity swelling with his chronic wounds and some mild crackles on exam but no super obvious signs of fluid overload
ROS:
- no urinary retention, dark colored urine.
- no chest pain, shortness of breath, altered mental status.
- denies new medications On exam he is well appearing, some mild lower extremity swelling with his chronic wounds and some mild crackles on exam but no super obvious signs of fluid overload. Of note, he was told recently that he had an elevated PSA
and needs to get an MRI. Renal ultrasound, bladder scan, urine/serum osm pending. Nephrology aware.
PHX
Chronic Venous Stasis Skin Changes / Ulcerations
ASCVD / PAD
Peripheral Neuropathy
Hypertension
Skin Cancer
Venous Insufficiency
Facial Reconstruction
Vein Stripping
LE Debridement / Skin Grafting (June 2023)
Skin Cancer Excision
Vital Signs
Temp Pulse Resp BP Pulse Ox
98.3 F 59 14 132/85 98
12/19/23 11:52 12/19/23 12:30 12/19/23 12:30 12/19/23 12:00 12/19/23 12:00
PE
General: Not toxic
HEENT: MILTON , dry mucous membranes
Respiratory: Clear; No Wheezes, Rales or Rhonchi
Cardiac: S1/S2 and Regular Rhythm; No Murmur
GI: Soft, Non Tender, Non Distended and Normal Bowel Sounds
Musculoskeletal:
Skin: Both Tangela: completely covered by tubigrip dressings. Declined to remove the dressing
Neuro: AO x 3
Data
Laboratory Tests
11/16/23 12/19/23
06:52 11:57
WBC 12.1 H
Hgb 10.2 L 9.2 L
MCV 76.2 L 72.3 L
Sodium 134 L 123 L
Potassium 4.6 5.4 H
Chloride 87 L
Carbon Dioxide 23
BUN 40 H
Creatinine 0.9 7.9 H*
eGFR 6.61
Albumin 3.3 L
Pending CXR
EKG
SINUS BRADYCARDIA
OTHERWISE NORMAL ECG
WHEN COMPARED WITH ECG OF 13-NOV-2023 00:23,
WA INTERVAL HAS DECREASED
ST NO LONGER DEPRESSED IN INFERIOR LEADS
Last hospitalist admission: Date of Admission: 11/13/23- Date of Discharge: 11/17/23
DX: right hip fracture s/p fall, chronic bilateral extremity wounds. TF to to [facility] for further care
ASSESSMENT & PLAN
Pending Rx reconciliation
New onset ARF DDX: Drug related AIN, ATN: Losartan was started 4 weeks ago HUP
Associated mild hyperkalemia
Associated severe hyponatremia with hypochloremia
Associated NAG acidosis ( AG 13, Albumin correctd 14.8)
Of note: he was told recently that he had an elevated PSA and needs to get an MRI.
- Indwelling F Cath placed at ER - drained 800 cc of clear light yellow urine
- serum osm pending
- US KUB
- check U eosinophils
- Stop ASA, NSAIDS and Losartan
- stop Cipro
- de escalade the Gabapentin
- Isotonic IV NS till further evacuation by Nephro
- check BMP q6h
- Nephrology consulted
S/p VERNON for Closed R hip fracture at end of October at [facility]
HX Chronic Venous Stasis wounds
HX NEG MRSA screen
- PT/OT
Venous Insufficiency
Chronic Venous Stasis Skin Changes
Chronic B/L LE Wounds
- Wd care consult
Benign Hypertension
Normotensive
- stop losartan due to ARF
- Observe BP
Microcytic Anemia
- Hgb = 9.2 and has been in this range since early 2023.
- Had significant surgery at [place] in June 2023 and required blood products during that stay.
- No report of any evident blood loss, melena, etc per patient.
- stop Ibuprofen
- Heme test stools
- PPI daily.
- Check iron studies, etc and replace if needed.
ASCVD / PAD
- HX LOS to the L SFA.
- He is not currently on ASA - apparently due to allergy.
- No complaints of chest pain.
- No history of heart disease specifically.
DVT Px: SQH q12h
No mechanical devices given his LE wounds. Elevated risk for DVT given chronic venous disease, LE wounds, injury, immobility, etc.
Code: Full
IMU
[2023-12-19 14:29] LABS: Percent Saturation 13 % (20-50); Total Iron Binding Capacity 256 ug/dl (261-462)
[2023-12-19 14:48] LABS: TSH Reflex To Free T4 1.19 uIU/ml (0.47-4.68)
[2023-12-19] MEDS: NSS 1000 IV (15:11)
[2023-12-19 15:24] LABS: Urine Albumin Trace (Neg - Trace); Urine Bilirubin Negative (Negative); Urine Character Clear (Clear); Urine Color Yellow; Urine Glucose Negative (Negative); Urine Ketone Negative (Negative); Urine Leukocyte Negative (Negative); Urine Nitrite Negative (Negative); Urine Occult Blood Negative (Negative); Urine Specific Gravity 1.005 (<1.030); Urine Urobilinogen Negative (Neg - 1+); Urine pH 6.5 (5.0-9.0)
[2023-12-19 15:36] LABS: Osmolality Urine 122 mOsm/kg (300-900)
--- NOTE | 2023-12-19 15:36 | W.CON.NEPH ---
Consultation
-
Date/Time Consultation Requested: 12/19/23 5719
Date/Time Consultation Performed: 12/19/23 1545
Requesting Provider: Barbi Quiroz
Performing Provider: Loren Aragon
Reason for Consultation: LISANDRO, hyponatremia
Medical History
-
Chief Complaint: Abnomral lab work
History of Present Illness:
73-year-old male from [facility] rehab status post partial right hip arthroplasty early November 2023 at [facility] with abnormal blood work showing elevated creatinine 6.8/bun 36 and sodium 122 on 12/17was asked to come to ER.
He has past medical history of pyoderma gangrenosum, angioplasty left superficial femoral artery stenosis 09/02/[address] Elizabeth, PVD, chronic right lower extremity open ulceration/chronic wounds left lower extremity status post debridement with
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
last dose February 2023. Pt was at late Oct for Bilateral lower extremity wounds for which he was transferred to [place] for surgical care and hip fracture surgery there. Reportedly during this admission he underwent debridement and graft placement
of wounds and partial hip arthroplasty. His blood pressure medications were changed from BB to losartan in this admit. he was then discharged to [facility] and he was taking ibuprofen 600 mg every 8 hours as needed for pain. Around 3weeks ago
he noted to cellulitis and started on cipro which he completed yesterday. The patient denies urinary symptoms, retention, dark urine, fever, chills, chest pain, palpitations, shortness of breath, abdominal pain. Per family his gita intake has been
poor with nausea, vomiting. had few loose BMs too. He thinks lost 25lbs in last 2months.Denies any rash. He does state he had a recent elevated PSA and needed an outpatient MRI. He had Elizabeth catheter inserted in the ER with 800 cc of clear yellow
urine obtained.
Today with creatinine of 7.9, potassium 5.4 and NA 123. Bp stable.
Past Medical History
HTN
HLD
obesity
alcohol abuse
Raynaud's to hands
former smoker
pyoderma gangrenosum
angioplasty left superficial femoral artery stenosis 09/02/[address] Elizabeth
PVD,
chronic right lower extremity open ulcerations to muscle, chronic left lower extremity wounds all status post debridement with grafting at [facility]
chronic microcytic anemia
elevated PSA
hyponatremia
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
Past Surgical History: Other (Facial Reconstruction Vein Stripping LE Debridement / Skin Grafting (June 2023) Skin Cancer Excision chronic right lower extremity open ulcerations to muscle, chronic left lower extremity wounds all status post
debridement with grafting at [facility] 2023 )
Social History
Tobacco: Former Smoker (quit 40yrs ago)
Alcohol: Daily (beers-quit since 1m)
Drug: None
Living: Other (at rehab)
Family History
PGM - DM Father age 83 old age, history HTN, mother age 93 old age
Family History: Not Pertinent
Allergies / Home Medications
Allergy/AdvReac Type Severity Reaction Status Date / Time
aspirin Allergy Swelling Verified 11/12/23 22:41
[From Excedrin Back and Body]
caffeine Allergy Swelling Verified 11/12/23 22:41
[From Excedrin Extra
Strength]
calcium carbonate Allergy Unknown Verified 11/12/23 22:41
[From Excedrin Back and Body]
�Medication �Instructions �Recorded �Confirmed �Type
ascorbic acid (vitamin C) 500 mg 500 mg PO DAILY Supplement 02/06/23 12/19/23 History
tablet (Vitamin C)
therapeutic multivitamin 1 tab PO DAILY Supplement 02/06/23 12/19/23 History
gabapentin 600 mg tablet 600 mg PO TID pain 11/13/23 12/19/23 History
ibuprofen 200 mg tablet 600 mg PO Q8HPRN PRN mild pain 11/13/23 12/19/23 History
acetaminophen 325 mg tablet 650 mg PO Q4HPRN PRN mild pain 12/19/23 12/19/23 History
(Tylenol)
aspirin 81 mg tablet,delayed 81 mg PO BID Blood Clot 12/19/23 12/19/23 History
release Prevention/Tx
bisacodyl 10 mg rectal suppository 10 mg [place] DAILYPRN PRN if no bm 12/19/23 12/19/23 History
(Dulcolax (bisacodyl)) aftr mom
ciprofloxacin HCl 500 mg tablet 500 mg PO BID infection 12/19/23 12/19/23 History
clobetasol 0.05 % topical ointment 1 applic topical DAILY 12/19/23 12/19/23 History
eczema,psoriasis,rash
docusate sodium 100 mg capsule 100 mg PO DAILY Constipation 12/19/23 12/19/23 History
(Colace)
losartan 25 mg tablet 25 mg PO BID blood pressure 12/19/23 12/19/23 History
magnesium hydroxide 400 mg/5 mL 2,400 mg PO [id number] PRN 12/19/23 12/19/23 History
oral suspension (Milk of Magnesia) constipation
mupirocin 2 % topical ointment 1 applic topical DAILYPRN PRN 12/19/23 12/19/23 History
impetigo
oxycodone 5 mg tablet 5 mg PO Q8HPRN PRN severe pain 12/19/23 12/19/23 History
rosuvastatin 40 mg tablet (Crestor) 40 mg PO HS High Cholesterol 12/19/23 12/19/23 History
sodium phosphates 19 gram-7 118 ml [place] DAILYPRN PRN if no bm 12/19/23 12/19/23 History
gram/118 mL enema (Fleet Enema) aftr dulcolax
tamsulosin 0.4 mg capsule (Flomax) 0.4 mg PO DAILY Urinary Issue 12/19/23 12/19/23 History
vitamins A,C,K-zjhc-hvypqs 2,148 1 tab PO DAILY Supplement 12/19/23 12/19/23 History
mcg-113 mg-45 mg-17.4 mg tablet
(PreserVision AREDS)
Review of Systems
-
All complete 12 point ORS have been inquired and found negative other than stated in HPI
All other systems: Negative unless noted
Physical Exam
Vital Signs
Vital Signs
Temp Pulse Resp BP Pulse Ox
98.3 F 59 12 147/59 93
12/19/23 11:52 12/19/23 15:15 12/19/23 15:15 12/19/23 15:09 12/19/23 15:09
Lab Results
WBC 12.1 10^3/uL (4.8-10.8) H 12/19/23 11:57
RBC 3.79 10^6/uL (4.70-6.10) L 12/19/23 11:57
Hgb 9.2 g/dL (13.0-18.0) L 12/19/23 11:57
Hct 27.4 % (39.0-52.0) L 12/19/23 11:57
Plt Count 254 10^3/uL (130-400) 12/19/23 11:57
Sodium 123 mmol/L (135-145) L 12/19/23 11:57
Potassium 5.4 mmol/L (3.5-5.1) H 12/19/23 11:57
Chloride 87 mmol/L (98-107) L 12/19/23 11:57
Carbon Dioxide 23 mmol/L (22-30) 12/19/23 11:57
BUN 40 mg/dl (9-20) H 12/19/23 11:57
Creatinine 7.9 mg/dL (0.7-1.3) H* 12/19/23 11:57
eGFR 6.61 12/19/23 11:57
Glucose 105 mg/dl (70-99) H 12/19/23 11:57
Calcium 8.8 mg/dl (8.4-10.2) 12/19/23 11:57
Albumin 3.3 g/dl (3.5-5.0) L 12/19/23 11:57
reanl US:
OMPARISON: Abdominal ultrasound 01/26/2015
FINDINGS: There is no hydronephrosis of either kidney. No shadowing stones are demonstrated on either side. No aggressive renal mass demonstrated on either side. Renal cortical thickness is within normal limits bilaterally, as is echogenicity of the
renal cortices.
The right kidney measures 13.3 x 6 x 7 x 8.6 cm in length.
The left kidney measures 13.3 x 5.6 x 6.6 cm in length.
Color Doppler imaging demonstrates intact blood flow to each kidney.
The bladder is not distended and therefore not evaluated.. Bilateral ureteral jets are not visualized.. No significant post void residual.
The prostate gland measures 7.8 x 3.9 x 4.2 cm
IMPRESSION:
Unremarkable exam of the kidneys.
Nonvisualization of the ureteral jets.
Moderate prostate hypertrophy.
CXR:
FINDINGS:
Lungs: There is a small right pleural effusion. There is no visible pneumothorax. There is extensive pleural calcification throughout the right lung. There is decreased lung volume on the right. These findings are stable.
Heart: The heart is top normal in size.
Osseous structures: There is mild anterior osteophyte formation lower thoracic spine.
IMPRESSION:
Small right pleural effusion. New.
Decreased lung volume on the right with associated pleural calcifications. Stable.
Physical Exam
General: Awake, Alert, Oriented, AOx3, No Distress and Nontoxic
HEENT: Anicteric, Conjunctivae Clear, Neck Supple and No JVD
Respiratory: Clear, Normal Excursion and Nonlabored Respirations
Abdomen: Soft, Nontender and Nondistended
Musculoskeletal: Cyanosis (peripheral cyanosis in hand from raynauds) and No Edema
Skin: No Rash
Neuro: Nonfocal/Grossly Intact
Psych: Mood/afflect pleasant, Insight/judgement good and Appropriate
Data Reviewed
-
Radiology: Report Reviewed by me, Discussed with Patient and Discussed with Family
Labs: Labs Reviewed by me, Discussed with Patient and Discussed with Family
Assessment/Plan
-
IMp:
Acute renal failure unclear etiology
Hyperkalemia
Asymptomatic hyponatremia/Hx chr hyponatremia
Right hip fracture femoral neck with displaced status post ORIF early November 2023
Prior alcohol abuse-stopped November 13, 2023
Microcytic anemia
HTN�benign
Left lower extremity cellulitis chronic ulcerations dx 01/2023 /Hx pyoderma gangrenosum BX 2019
PVD-recent angioplasty left superficial femoral artery stenosis 09/02/2022
Hx Large right lower extremity ulceration with tendon visualization/increased peripheral edema RLE
History Left lower extremity ulcerations-Status post debridement and skin grafting of both lower extremities June 2023 at [facility]
Hx RA-Was on Remicade with last infusion February 2023
History of squamous cell CA bilateral legs 2019 treated at [facility]
BPH/elevated PSA Hx
HLD
Raynaud's bilateral hands
Plan:
A/w abnormal labs
LISANDRO baseline cr 0.9 in Oct- possible multifactorial
prerenal with poor intake and AIN high in differential with NSAIDs, CIpro
Also new ARB for last 1m
check UA, U fena, U eosinophils, noted eosinophilia
renal US non acute and no hydro
Bp stable no hypotension
avoid nephrotoxins, ARB, cipro
ok for gentle IVF with isotonic IVF
hyponatremia-suspect hypovolemic and poor solute intake
check U chelsea, U na , normal TSH
repeat labs later if sodium decreases likely try 3% saline
mild hyperkalemia-monitor, prn Lokelma
Anemia-check U PCR, Fe panel suggest fe def sat only 10%
start IV fe course
d/w pt and family at bedside
d/w primary
[2023-12-19 15:37] LABS: Urine Sodium 15 mmol/L (30-90)
[2023-12-19 16:09] LABS: Folate 11.7 ng/ml (2.76-20); Vitamin B12 955 pg/ml (239-931)
--- NOTE | 2023-12-19 17:00 | PTCARENOTE ---
Received patient by stretcher from ED. IV fluids infusing per order. Patient with no complaints. Elizabeth draining clear yellow urine. NSR on monitor. VSS. B/L LE wounds dressed, WOCN consulted for orders. Will closely monitor.
[2023-12-19 17:32] LABS: Body Fluid for Eosinophils No Eosinophils seen
[2023-12-19] MEDS: NEURONTIN 100 MG PO ×2 (18:13→21:00)
--- NOTE | 2023-12-19 18:20 | PTCARENOTE ---
Received patient by stretcher from ED. IV fluids infusing per order. Patient with no complaints. Elizabeth draining clear yellow urine. +3 scrotal edema and redness, patient states started yesterday. NSR on monitor. VSS. B/L LE wounds dressed, WOCN
consulted for orders. Will closely monitor.
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
[2023-12-19 19:04] LABS: Urine Protein 44 mg/dl (0-12)
[2023-12-19] MEDS: CRESTOR 40 MG PO (21:00)
[2023-12-19] MEDS: HEPARIN 5000 UNITS SC (21:00)
--- NOTE | 2023-12-19 21:12 | PTCARENOTE ---
Received pt from [facility]ari FIGU[facility]. Pt is AAOx3, forgetful @ times. NSR/sinus marian on the monitor. On RA O2 sat 97%, lungs diminished. Elizabeth in place for acute kidney, hygiene provided. NS infusing then switched to 3% for Na of 121. K 5.4 Lokelma x1
given. Pt w/ b/l LE wounds, R leg draining. Pt states they get changed weekly next appointment 12/19 pt canceled due to being in the hospital. He states they can wait to be changed once WOC sees him. G bath provided. Pt is laying in bed with call
loredo in reach.
[2023-12-19 21:57] LABS: Blood Urea Nitrogen 40 mg/dl (9-20); Calcium 8.7 mg/dl (8.4-10.2); Carbon Dioxide 23 mmol/L (22-30); Chloride 86 mmol/L (98-107); Estimated Creatinine Clearance 10 ml/min; Glucose 108 mg/dl (70-99); Potassium 5.4 mmol/L (3.5-5.1); Sodium 121 mmol/L (135-145); eGFR 6.61
[2023-12-19] MEDS: SODIUM CHLORIDE 3% 250 IV (22:20)
[2023-12-19] MEDS: LOKELMA 10 GRAM PO (22:20)
[2023-12-20] VITALS (12 sets, daily range): BP systolic 116–174; BP diastolic 52–84; BMI 23.7
[2023-12-20 05:17] LABS: % Basophils 0.7 % (0-2); % Eosinophils 13.8 % (0-6); % Immature Granulocytes 0.2 % (0-0.5); % Lymphocytes 27.5 % (20.5-51.1); % Monocytes 12.2 % (1.7-9.3); % Neutrophils 45.6 % (42.2-75.2); Absolute Basophils 0.1 10^3/uL (0-0.2); Absolute Eosinophils 1.4 10^3/uL (0-0.7); Absolute Lymphocytes 2.7 10^3/uL (1.2-3.4); Absolute Monocytes 1.2 10^3/uL (0.1-0.6); Absolute Neutrophils 4.5 10^3/uL (1.4-6.5); Hematocrit 27.7 % (39.0-52.0); Hemoglobin 9.5 g/dL (13.0-18.0); Mean Corp Hgb Conc. 34.3 g/dL (33.0-37.0); Mean Corpuscular Hgb 25.2 pg (27.0-31.0); Mean Corpuscular Volume 73.5 fL (80.0-94.0); Mean Platelet Volume 8.5 fL (7.4-10.4); Nucleated Red Blood Cells % 0 % (-); Platelet Count 251 10^3/uL (130-400); Red Blood Cell Count 3.77 10^6/uL (4.70-6.10); Red Cell Dist. Width 16.7 % (11.5-14.5); White Blood Cell Count 9.8 10^3/uL (4.8-10.8)
[2023-12-20 06:04] LABS: ALT (SGPT) 16 U/L (0-50); AST (SGOT) 34 U/L (17-59); Alkaline Phosphatase 105 U/L (38-126); Blood Urea Nitrogen 40 mg/dl (9-20); Calcium 8.5 mg/dl (8.4-10.2); Carbon Dioxide 21 mmol/L (22-30); Chloride 90 mmol/L (98-107); Estimated Creatinine Clearance 10 ml/min; Glucose 87 mg/dl (70-99); Potassium 5.5 mmol/L (3.5-5.1); Sodium 125 mmol/L (135-145); Total Bilirubin 0.3 mg/dl (0.2-1.3); Total Protein 5.5 g/dl (6.3-8.2); eGFR 6.32
--- NOTE | 2023-12-20 08:07 | W.PN.NEPH.PH ---
Today's Communication / Plan
-
Recheck BMP at 11 AM
Maintain Elizabeth
Dialysis discussion with patient
Lokelma provided
Assessment/Plan
-
IMp:
Acute renal failure unclear etiology
Hyperkalemia
Asymptomatic hyponatremia/Hx chr hyponatremia
Right hip fracture femoral neck with displaced status post ORIF early November 2023
Prior alcohol abuse-stopped November 13, 2023
Microcytic anemia
HTN�benign
Left lower extremity cellulitis chronic ulcerations dx 01/2023 /Hx pyoderma gangrenosum BX 2019
PVD-recent angioplasty left superficial femoral artery stenosis 09/02/2022
Hx Large right lower extremity ulceration with tendon visualization/increased peripheral edema RLE
History Left lower extremity ulcerations-Status post debridement and skin grafting of both lower extremities June 2023 at [facility]
Hx RA-Was on Remicade with last infusion February 2023
History of squamous cell CA bilateral legs 2019 treated at [facility]
BPH/elevated PSA Hx
HLD
Raynaud's bilateral hands
Plan:
A/w abnormal labs
LISANDRO baseline cr 0.9 in
non oliguric ~1200cc
prerenal with poor intake and AIN high in differential with NSAIDs, Cipro, urine eosinophils negative but notable for peripheral eosinophilia
Hemodynamically stable
checked UA,: noted only for tubular proteinuria
renal US non acute and no hydro
Bp stable
avoid nephrotoxins, ARB, cipro
hyponatremia-suspect hypovolemic and poor solute intake: now up to 125 after 3% saline given overnight
check U chelsea ~122 U na 15, normal TSH
mild hyperkalemia-monitor, repeat Lokelma provided now
recheck labs at 11 am then decide if HD will be pursued today (discussed with patient)
Anemia-check U PCR, Fe panel suggest fe def sat only 10%
started IV fe course
d/w pt
-
-
Date of Service: December 20, 2023
CC / HPI / ROS
-
Chief Complaint:
LISANDRO
History of Present Illness:
Creatinine worse to 8.2
Hemodynamically stay
Hyperkalemia
Sodium up to 125 following 3% infusion last evening
Review of Systems:
Nonoliguric via Elizabeth
No fever
No chest pain or shortness of breath
Labs
-
Labs:
WBC 9.8 10^3/uL (4.8-10.8) 12/20/23 04:51
RBC 3.77 10^6/uL (4.70-6.10) L 12/20/23 04:51
Hgb 9.5 g/dL (13.0-18.0) L 12/20/23 04:51
Hct 27.7 % (39.0-52.0) L 12/20/23 04:51
Plt Count 251 10^3/uL (130-400) 12/20/23 04:51
eGFR 6.32 12/20/23 04:51
eGFR Cancelled 12/20/23 04:51
eGFR Cancelled 12/20/23 04:51
Albumin 3.0 g/dl (3.5-5.0) L 12/20/23 04:51
Physical Exam
-
Vital Signs:
Vital Signs
Temp Pulse Resp BP Pulse Ox
97.6 F 67 17 155/70 98
12/20/23 04:54 12/20/23 06:00 12/20/23 06:00 12/20/23 06:00 12/20/23 06:00
Cardiovascular:: Regular rate and rhythm
Respiratory:: Bilateral: CTA
Lung Excursion:: Normal
Abdomen:: Nontender and Soft
Bowel Sounds:: Normal
Extremity Edema:: +1: Bilateral: (wounds (wraps))
Elizabeth Catheter: Yes
[2023-12-20] MEDS: LOKELMA 10 GRAM PO ×2 (09:00→13:56)
[2023-12-20] MEDS: HEPARIN 5000 UNITS SC ×2 (09:01→19:32)
--- NOTE | 2023-12-20 10:12 | W.PN.HOSP.TC ---
Today's Communication/Plan
-
Nephrology for LISANDRO
follow BMP
Podiatry
wound
care
start Cefepime
Assessment / Plan
Assessment / Plan
73yo M with PMHx of PVD, pyoderma gangrenosumchronic R heel ulcer, Hx of L heel wound skin graftin in 07/11, b/l LE squamous cell carconoma of the skin, HTN, HLD, Hx of alcohol abuse, RA with raynaud, elevated PSA, recently disscharged from [facility], where he was managed for R hip Fx and b/l LE cellulitis as well as worsening on RLE wound, started on CIprofloxacin by , then sent to [facility] rehab. Had blood test done in rehab showing worsening of his kidney
function, so he was sent to the hospital. Also found hyponatremia
A/P:
#LISANDRO
#hyponatremias
#hyperkalemia
nephrology mgmt: possible HD
s/p 3% saline on 12/20/23
Serial BMP - target sodium increase by 6-8meq per 24h
Cr upon d/c from [facility] in Nov was 1.75
#b/l le cellulitis with venous stasis wounds
#Pyoderma gangrenosum
Was growing MRSA and pseudomonas in [facility]
Planned to continue on Cipro upon d/c
As per conversation with - plan was to clear the infection before further attempted R hip intervention
Will start renally dosed Cefepime for previous cellulitis, if HD initiated - increase dosage to 1g q24h
Podiatry eval
wound care
#BPH
now with [facility]
#HLD
cont rosuvastatin eventually
#R hip Fx
previously post-OP
#RA with Reunaulds
cont outpatient mgmt upon d/c
#Chronic microcytic anemia
#PVD s/p baloon angio
#NEuropathy
cont hoem meds when possible
#b/l LE skin CA
follows in [facility]
DVT ppx hep
FUll code
I have spent at least 59min reviewing chart, test results, communication with consultants and direcct patient care
Anticipated Discharge: > 48 hours
Subjective/Interval History
-
Date of Service: December 20, 2023
Objective Data
-
Labs:
Laboratory Results
12/20/23 12/20/23 12/20/23
04:51 04:51 04:51
WBC 9.8
Hgb 9.5 L
Hct 27.7 L
Plt Count 251
PT
INR
Sodium Cancelled 125 L Cancelled
Potassium Cancelled
Chloride
Carbon Dioxide
BUN
Creatinine
Glucose
Calcium
Total Bilirubin
AST
ALT
Alkaline Phosphatase
12/20/23 12/20/23 12/20/23
04:51 04:51 04:51
WBC
Hgb
Hct
Plt Count
PT
INR
Sodium
Potassium 5.5 H Cancelled
Chloride Cancelled 90 L
Carbon Dioxide
BUN
Creatinine
Glucose
Calcium
Total Bilirubin
AST
ALT
Alkaline Phosphatase
12/20/23 12/20/23 12/20/23
04:51 04:51 04:51
WBC
Hgb
Hct
Plt Count
PT
INR
Sodium
Potassium
Chloride Cancelled
Carbon Dioxide Cancelled 21 L Cancelled
BUN Cancelled
Creatinine
Glucose
Calcium
Total Bilirubin
AST
ALT
Alkaline Phosphatase
12/20/23 12/20/23 12/20/23
04:51 04:51 04:51
WBC
Hgb
Hct
Plt Count
PT
INR
Sodium
Potassium
Chloride
Carbon Dioxide
BUN 40 H Cancelled
Creatinine Cancelled 8.2 H*
Glucose
Calcium
Total Bilirubin
AST
ALT
Alkaline Phosphatase
12/20/23 12/20/23 12/20/23
04:51 04:51 04:51
WBC
Hgb
Hct
Plt Count
PT
INR
Sodium
Potassium
Chloride
Carbon Dioxide
BUN
Creatinine Cancelled
Glucose Cancelled 87 Cancelled
Calcium Cancelled
Total Bilirubin
AST
ALT
Alkaline Phosphatase
12/20/23 12/20/23 12/20/23
04:51 04:51 11:00
WBC
Hgb
Hct
Plt Count
PT Pending
INR Pending
Sodium Pending
Potassium Pending
Chloride Pending
Carbon Dioxide Pending
BUN Pending
Creatinine Pending
Glucose Pending
Calcium 8.5 Cancelled Pending
Total Bilirubin 0.3
AST 34
ALT 16
Alkaline Phosphatase 105
12/20/23 12/20/23
17:00 23:00
WBC
Hgb
Hct
Plt Count
PT
INR
Sodium Pending Pending
Potassium Pending Pending
Chloride Pending Pending
Carbon Dioxide Pending Pending
BUN Pending Pending
Creatinine Pending Pending
Glucose Pending Pending
Calcium Pending Pending
Total Bilirubin
AST
ALT
Alkaline Phosphatase
Vital Signs:
Vital Signs
Temp Pulse Resp BP Pulse Ox
97.6 F 67 17 155/70 98
12/20/23 08:27 12/20/23 06:00 12/20/23 06:00 12/20/23 06:00 12/20/23 06:00
I&O
12/19/23 12/20/23 12/21/23
06:59 06:59 06:59
Intake Total 675 / 675
Output Total 1200 / 1200
Balance -525 / -525
Review of Systems
-
History Source: Patient
All other systems: Reviewed and negative
Physical Exam
-
General: No Apparent Distress
HEENT: Normocephalic
Respiratory: Clear to Auscultation
Cardiac: Regular Rhythm and S1/S2
GI: Soft, Nontender and Nondistended
Genito-urinary: No Costovertebral Tender
Musculoskeletal: No Clubbing, No Cyanosis and No Edema
Skin: Warm
Neuro: Awake, Alert, Oriented and AO x 3
Psych: Calm
[2023-12-20] MEDS: VITAMIN C 500 MG PO (11:04)
[2023-12-20] MEDS: FLOMAX 0.4 MG PO (11:04)
[2023-12-20] MEDS: OCUVITE SOFTGEL 1 CAP PO (11:04)
[2023-12-20] MEDS: THERAGRAN 1 TABLET PO (11:04)
[2023-12-20] MEDS: NEURONTIN 100 MG PO ×3 (11:04→21:06)
[2023-12-20] MEDS: MAXIPIME 5.65 MG IV (11:06)
--- NOTE | 2023-12-20 12:12 | WOUNDNOTE ---
RIGHT LATERAL LEG
--- NOTE | 2023-12-20 12:13 | WOUNDNOTE ---
LEFT MEDIAL ANKLE
--- NOTE | 2023-12-20 12:22 | WOUNDNOTE ---
WON CAROLINA note: Patient admitted with abnormal labs
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
PMH: Left calf skin cancer, HTN, ETOH, PAD, Legs with chronic Pyoderma Gangrenosum follows with surgeon Dr. Dumont at [place] weekly.
Wound Location and type/assessment: Patient known to service, last seen 11/13/2023 for same chronic leg wounds due to pyoderma gangrenosum. Patient follows with Dr. Dumont q Monday at [place]. Currently using a 4 layer compression type of Coflex
wrap with silver alginate over open wounds, which was removed today. Left leg with with large amount of purulent drainage and hypergranulation. Right leg with less drainage and no purulence noted. With assist from CAROLINA Barlow and students Bouchra and
Reid, dressing was changed dressings/bruna wraps applied. Skin surrounding wounds and feet are very dry and flaky. + audible pedal pulses with Doppler, Heels intact. Patient with stage 2 on sacrum.
Appetite: Good.
Pressure redistribution devices in place: Centrella Max Air, heels elevated with pillows under calfs. Recommended to CAROLINA Sevilla to apply air cushion under left heel to avoid pressure due to external rotation.
Plan: Barrier ointment applied to dry skin on periwound legs, will order mineral oil. Wound care completed as ordered. Plan for BID wound care to left leg due to large amount of drainage. BRUNA applied as ordered. Awaiting fiberglass boat finisher consult. Will
confirm orders with hospitalist. CAROLINA Sevilla updated.
[2023-12-20 12:54] LABS: INR 1.14; PT 14.7 Sec (11.4-14.6)
[2023-12-20 13:27] LABS: Blood Urea Nitrogen 42 mg/dl (9-20); Calcium 8.6 mg/dl (8.4-10.2); Carbon Dioxide 20 mmol/L (22-30); Chloride 90 mmol/L (98-107); Estimated Creatinine Clearance 10 ml/min; Glucose 84 mg/dl (70-99); Potassium 5.5 mmol/L (3.5-5.1); Sodium 125 mmol/L (135-145); eGFR 6.23
[2023-12-20] MEDS: SODIUM CHLORIDE 3% 250 IV (13:56)
--- NOTE | 2023-12-20 14:58 | PTCARENOTE ---
Pt presents as assessed. Aox3, forgetful. Pt requiring frequent re-education on plan of care. NSR on tele monitor. Orders received for additional dose of Lokelma and bag of 3% saline, administered as ordered- see MAY. Wound care completed by WOC RN.
Dressings C/D/I. Able to make needs known, call loredo within reach.
[2023-12-20] MEDS: FERRLECIT 110 MG IV (15:37)
--- NOTE | 2023-12-20 16:57 | CM ---
publishing manager reviewed patient's chart and patient was admitted from [facility], patient is not on bedhold, case preparer and liner spoke with admissions at [facility] and patient is max assist of 2 to dependent at times at [facility], able to ambulate 5 feet, followed for lower extremity wounds.
Plan; Patient was admitted from [facility] skilled, will need to follow for discharge planning needs.
[2023-12-20 18:00] LABS: Blood Urea Nitrogen 41 mg/dl (9-20); Calcium 8.4 mg/dl (8.4-10.2); Carbon Dioxide 22 mmol/L (22-30); Chloride 91 mmol/L (98-107); Estimated Creatinine Clearance 9 ml/min; Glucose 98 mg/dl (70-99); Potassium 5.7 mmol/L (3.5-5.1); Sodium 125 mmol/L (135-145); eGFR 5.89
--- NOTE | 2023-12-20 19:01 | PTCARENOTE ---
Pt with critical chemistry panel, Dr. Mcelroy notified via TT.
[2023-12-20] MEDS: LASIX 80 MG IV (19:32)
--- NOTE | 2023-12-20 20:20 | PTCARENOTE ---
Received pt from zari FIGUEROA. Pt with critical lab values, zari RN notified Dr (see note). 80 IV Lasix x1 ordered and given (see MAR). Elizabeth in place. Pt receiving 3% @ 30 ml/hr. Pt is AAOx3, forgetful, requires frequent education. NSR on the
monitor. On RA O2 sat 97%. Pt is laying in bed with call loredo in reach.
[2023-12-20] MEDS: CRESTOR 40 MG PO (21:06)
[2023-12-20] MEDS: HYDROPHOR 1 APPLIC TOPICAL (21:06)
[2023-12-20] MEDS: DESENEX/MITRAZOL/ZEASORB 1 APPLIC TOPICAL (21:09)
[2023-12-20 23:59] LABS: Blood Urea Nitrogen 42 mg/dl (9-20); Calcium 8.2 mg/dl (8.4-10.2); Carbon Dioxide 19 mmol/L (22-30); Chloride 94 mmol/L (98-107); Estimated Creatinine Clearance 9 ml/min; Glucose 101 mg/dl (70-99); Potassium 5.3 mmol/L (3.5-5.1); Sodium 127 mmol/L (135-145); eGFR 5.89
[2023-12-21] VITALS (16 sets, daily range): BP systolic 98–152; BP diastolic 41–72; PULSE 70–72; O2SAT 98–99; BMI 23.7
[2023-12-21] MEDS: ULTRAM 50 MG PO (00:40)
[2023-12-21 04:42] LABS: % Basophils 0.7 % (0-2); % Eosinophils 12.2 % (0-6); % Immature Granulocytes 0.2 % (0-0.5); % Lymphocytes 27.8 % (20.5-51.1); % Monocytes 13.5 % (1.7-9.3); % Neutrophils 45.6 % (42.2-75.2); Absolute Basophils 0.1 10^3/uL (0-0.2); Absolute Lymphocytes 2.3 10^3/uL (1.2-3.4); Absolute Monocytes 1.1 10^3/uL (0.1-0.6); Absolute Neutrophils 3.8 10^3/uL (1.4-6.5); Hematocrit 24.8 % (39.0-52.0); Hemoglobin 8.6 g/dL (13.0-18.0); Mean Corp Hgb Conc. 34.7 g/dL (33.0-37.0); Mean Corpuscular Hgb 25.1 pg (27.0-31.0); Mean Corpuscular Volume 72.3 fL (80.0-94.0); Mean Platelet Volume 8.4 fL (7.4-10.4); Nucleated Red Blood Cells % 0 % (-); Platelet Count 221 10^3/uL (130-400); Red Blood Cell Count 3.43 10^6/uL (4.70-6.10); Red Cell Dist. Width 16.6 % (11.5-14.5); White Blood Cell Count 8.3 10^3/uL (4.8-10.8)
[2023-12-21 05:10] LABS: ALT (SGPT) 15 U/L (0-50); AST (SGOT) 30 U/L (17-59); Albumin 2.7 g/dl (3.5-5.0); Alkaline Phosphatase 93 U/L (38-126); Blood Urea Nitrogen 42 mg/dl (9-20); Calcium 8.2 mg/dl (8.4-10.2); Carbon Dioxide 16 mmol/L (22-30); Chloride 96 mmol/L (98-107); Estimated Creatinine Clearance 9 ml/min; Glucose 86 mg/dl (70-99); Potassium 5.3 mmol/L (3.5-5.1); Sodium 126 mmol/L (135-145); Total Bilirubin 0.2 mg/dl (0.2-1.3); eGFR 5.97
--- NOTE | 2023-12-21 07:53 | W.PN.NEPH.PH ---
Today's Communication / Plan
-
holding off HD today
recheck bmp at 6pm
add fluid restriction for hyponatremia
Assessment/Plan
-
IMp:
Acute renal failure unclear etiology
Hyperkalemia
Asymptomatic hyponatremia/Hx chronic hyponatremia
Right hip fracture femoral neck with displaced status post ORIF early November 2023
Prior alcohol abuse-stopped November 13, 2023
Microcytic anemia
HTN�benign
Left lower extremity cellulitis chronic ulcerations dx 01/2023 /Hx pyoderma gangrenosum BX 2019
PVD-recent angioplasty left superficial femoral artery stenosis 09/02/2022
Hx Large right lower extremity ulceration with tendon visualization/increased peripheral edema RLE
History Left lower extremity ulcerations-Status post debridement and skin grafting of both lower extremities June 2023 at [facility]
Hx RA-Was on Remicade with last infusion February 2023
History of squamous cell CA bilateral legs 2019 treated at [facility]
BPH/elevated PSA Hx
HLD
Raynaud's bilateral hands
Plan:
A/w abnormal labs
creatinine at 8.7, may be plateauing and non oliguric
holding off HD today
recheck bmp at 6pm
LISANDRO baseline cr 0.9 in
non oliguric ~1370cc
prerenal with poor intake and AIN high in differential with NSAIDs, Cipro, urine eosinophils negative but notable for peripheral eosinophilia
Hemodynamically stable
checked UA,: noted only for tubular proteinuria
renal US non acute and no hydro
Bp stable
avoiding nephrotoxins, ARB, cipro
hyponatremia-now at 126 after 3% saline given times two , will place fluid restriction
check U chelsea ~122 U na 15, normal TSH
mild hyperkalemia-monitor,
metabolic acidosis exacerbating to 16
Anemia-check U PCR, Fe panel suggest fe def sat only 10%
maintain IV fe course
d/w pt
-
-
Date of Service: December 21, 2023
CC / HPI / ROS
-
Chief Complaint:
LISANDRO
History of Present Illness:
Creatinine worse to 8.7
Hemodynamically stable
Hyperkalemia
Sodium up to 126 following 3% infusion last evening
Review of Systems:
Nonoliguric via Elizabeth
No fever
No chest pain or shortness of breath
Labs
-
Labs:
WBC 8.3 10^3/uL (4.8-10.8) 12/21/23 04:29
RBC 3.43 10^6/uL (4.70-6.10) L 12/21/23 04:29
Hgb 8.6 g/dL (13.0-18.0) L 12/21/23 04:29
Hct 24.8 % (39.0-52.0) L 12/21/23 04:29
Plt Count 221 10^3/uL (130-400) 12/21/23 04:29
Sodium 126 mmol/L (135-145) L 12/21/23 04:29
Potassium 5.3 mmol/L (3.5-5.1) H 12/21/23 04:29
Chloride 96 mmol/L (98-107) L 12/21/23 04:29
Carbon Dioxide 16 mmol/L (22-30) L 12/21/23 04:29
BUN 42 mg/dl (9-20) H 12/21/23 04:29
Creatinine 8.6 mg/dL (0.7-1.3) H* 12/21/23 04:
eGFR 5.97 12/21/23 04:29
Glucose 86 mg/dl (70-99) 12/21/23 04:29
Calcium 8.2 mg/dl (8.4-10.2) L 12/21/23 04:
Albumin 2.7 g/dl (3.5-5.0) L 12/21/23 04:29
Physical Exam
-
Vital Signs:
Vital Signs
Temp Pulse Resp BP Pulse Ox
97.7 F 67 23 130/56 95
12/21/23 04:27 12/21/23 06:00 12/21/23 06:00 12/21/23 06:00 12/21/23 06:00
Cardiovascular:: Regular rate and rhythm
Respiratory:: Bilateral: CTA
Lung Excursion:: Normal
Abdomen:: Nontender and Soft
Bowel Sounds:: Normal
Extremity Edema:: +1: Bilateral: (trace, leg wraps)
Elizabeth Catheter: Yes
[2023-12-21] MEDS: FLOMAX 0.4 MG PO (09:08)
[2023-12-21] MEDS: HEPARIN 5000 UNITS SC ×2 (09:08→21:23)
[2023-12-21] MEDS: HYDROPHOR 1 APPLIC TOPICAL ×2 (09:10→23:45)
[2023-12-21] MEDS: NEURONTIN 100 MG PO ×3 (09:11→21:22)
[2023-12-21] MEDS: THERAGRAN 1 TABLET PO (09:11)
[2023-12-21] MEDS: ULTRAVATE 0.05% 1 APPLIC TOPICAL (09:12)
[2023-12-21] MEDS: VITAMIN C 500 MG PO (09:12)
[2023-12-21] MEDS: OCUVITE SOFTGEL 1 CAP PO (09:12)
--- NOTE | 2023-12-21 09:36 | CON.ID ---
Consultation
-
Date/Time Consultation Requested: December 21, 2023 0806
Date/Time Consultation Performed: December 21, 2023 0969
Requesting Provider: Dr. Elmer Alejandra
Performing Provider: Dr. Mayra Duran
Reason for Consultation: Lower extremity cellulitis
Chief Complaint / Past History
Chief Complaint
Abnormal labs
History of Present Illness
Mr Tran is a 73 year old male with history of venous stasis with extensive bilateral ulcers (followed at [facility], s/p multiple debridement/grafts Apr and May 2023) recently hospitalized from November 12 to November 16 after a mechanical fall sustaining
right hip fracture. Patient requested transfer to [facility]. He had significant lower extremity wounds, the outpatient Bactrim and levofloxacin were replaced with Zosyn while in the hospital. He was transferred to [facility]
[place] on November 15. He underwent right hip Girdlestone procedure 11/17. No surgical intervention of LE wiunds. He was on Vancomycin and cefepime then transitioned to cipro 500mg bid on 11/24/23 when discharged to [facility] rehab . While
at rehab patient noted to be in LISANDRO Cr 7.9, hyponatremic, hyperkalemic. He was therefore sent to 12/18. Pt states leg wounds are stable to improve. No fevers/chills. Able to void. No N/V/abd pain.
Past History
Additional Past Medical History:
HTN
HLD
alcohol abuse
Raynaud's to hands
RA, last received Remicase 02/2023
pyoderma gangrenosum by biopsy 2019
angioplasty left superficial femoral artery stenosis 09/02/[address] Elizabeth
PVD
chronic right lower extremity open ulcerations to muscle, chronic left lower extremity wounds all status post debridement with grafting at [facility] 2023
elevated PSA
squamous cell CA to bilateral lower legs treated at [facility] 2019
Right hip fracture s/p Girdlestone procedure 11/18/23
Facial Reconstruction
Vein Stripping
Allergy History:
aspirin [From Excedrin Back and Body] Allergy (Verified 11/12/23 22:41)
Swelling
caffeine [From Excedrin Extra Strength] Allergy (Verified 11/12/23 22:41)
Swelling
calcium carbonate [From Excedrin Back and Body] Allergy (Verified 11/12/23 22:41)
Unknown
Medications Reviewed: Yes
Current Antibiotics:
cefepime 500mg IV q24
Social History
Tobacco: Former Smoker (20 pack year history)
Alcohol: Daily (several beers)
Drug: None
Employment: Employed (works in [place] for [employer])
Family History
Family History: Not Pertinent
Review of Systems
Review of Systems
General: Negative Fever, Chills or Change in Appetite
HEENT: Negative Lymphadenopathy, Sinus Problems, Headache or Pharyngitis
Cardiovascular: Negative Chest Pain
Respiratory: Negative Dyspnea or Cough
Gasteroenterology: Other (no diarrhea); Negative Nausea or Vomiting
Genital / Urological: Negative Dysuria or Flank Pain
Neurological: Negative Headache or Dizziness
All systems: All other systems were reviewed and were negative
Vital Signs
Temp Pulse Resp BP Pulse Ox
97.7 F 67 23 130/56 98
12/21/23 04:27 12/21/23 06:00 12/21/23 06:00 12/21/23 06:00 12/21/23 08:00
Physical Exam
Physical Exam
Constitutional: No Acute Distress
Eyes: No Conjunctival Hemorrhage and Sclera Anicteric
Cardiovascular: Regular Rate and S1/S2
Pulmonary: Clear
Gastrointestinal: Soft, Non Tender, Non Distended and Normal Bowel Sounds
Genito-Urinary: Elizabteh and Clear Urine
Extremities: Negative Edema
Wound: Other (Reviewed 12/19 wound photos: large medial ankle wound granulating tissue. LLE more wounds hyper-granulating. Per Wound nurse, LLE copious pus-like drainage. )
Neurological: AO x 3
Lab / Diagnostic Study Results
12/21/23 04:29
Abs Immat Gran (auto) 0.0 10^3/uL (0-0.05) 12/21/23 04:29
Absolute Neuts (auto) 3.8 10^3/uL (1.4-6.5) 12/21/23 04:29
Absolute Lymphs (auto) 2.3 10^3/uL (1.2-3.4) 12/21/23 04:29
Absolute Monos (auto) 1.1 10^3/uL (0.1-0.6) H 12/21/23 04:29
Absolute Basos (auto) 0.1 10^3/uL (0-0.2) 12/21/23 04:29
Immature Gran % 0.2 % (0-0.5) 12/21/23 04:29
Neutrophils % 45.6 % (42.2-75.2) 12/21/23 04:29
Lymphocytes % 27.8 % (20.5-51.1) 12/21/23 04:29
Monocytes % 13.5 % (1.7-9.3) H 12/21/23 04:29
Eosinophils % 12.2 % (0-6) H 12/21/23 04:29
Basophils % 0.7 % (0-2) 12/21/23 04:29
PT 14.7 Sec (11.4-14.6) H 12/20/23 12:37
INR 1.14 12/20/23 12:37
Microbiology Results
12/19/23 CXR: Small right pleural effusion. New.
12/19/23 Renal US: Unremarkable exam of the kidneys.
Assessment / Plan
# Chronic BLE extensive venous stasis wounds s/p I+D, skin grafts at [facility] Apr,May 2023
- Has been on prolonged abx outpt x 2 months
- Had been on cipro since 11/23 to 12/17. Of note 11/07/23 Wound cx few Pseudomonas with intermediate resistance to levofloxacin. Also heavy growth MRSA (R) doxy
- Add Vancomycin to cefepime
- Continue wound care.
# LISANDRO unclear etiology
- avoid nephrotoxic drugs
--- NOTE | 2023-12-21 09:53 | W.PN.HOSP.TC ---
Today's Communication/Plan
-
ID consult
Podiatry pending
Clinically no fluid overload, producing urine - 1.2L over 24h
Hypernatremia mgmt as per nephrology
Assessment / Plan
Assessment / Plan
73yo M with PMHx of PVD, pyoderma gangrenosumchronic R heel ulcer, Hx of L heel wound skin graftin in 07/11, b/l LE squamous cell carconoma of the skin, HTN, HLD, Hx of alcohol abuse, RA with raynaud, elevated PSA, recently disscharged from [facility], where he was managed for R hip Fx and b/l LE cellulitis as well as worsening on RLE wound, started on CIprofloxacin by , then sent to [facility] rehab. Had blood test done in rehab showing worsening of his kidney
function, so he was sent to the hospital. Also found hyponatremia
A/P:
#LISANDRO
#hyponatremias
#hyperkalemia
nephrology mgmt: possible HD
s/p 3% saline on 12/20/23
Serial BMP - target sodium increase by 6-8meq per 24h
Cr upon d/c from [facility] in Nov was 1.75
#b/l le cellulitis with venous stasis wounds, L worse then R
#Pyoderma gangrenosum
Was growing MRSA and pseudomonas in [facility] and planned to continue on Cipro upon d/c
As per conversation with - plan was to clear the infection before further attempted R hip VERNON
Will start renally dosed Cefepime for previous cellulitis, if HD initiated - increase dosage to 1g q24h, check wound Cx and get ID opinion
Podiatry eval
wound care
#BPH
now with [facility]
#HLD
cont rosuvastatin eventually
#R hip Fx
previously post-OP
#RA with Regnauld
cont outpatient mgmt upon d/c
#Chronic microcytic anemia
#PVD s/p baloon angio
#NEuropathy
cont hoem meds when possible
#b/l LE skin CA
follows in [facility]
DVT ppx hep
FUll code
I have spent at least 39min reviewing chart, test results, communication with consultants and direcct patient care
Anticipated Discharge: > 48 hours
Subjective/Interval History
-
Date of Service: December 21, 2023
Objective Data
-
Labs:
Laboratory Results
12/20/23 12/21/23 12/21/23
23:22 03:00 04:29
WBC 8.3
Hgb 8.6 L
Hct 24.8 L
Plt Count 221
Sodium 127 L Cancelled 126 L
Potassium 5.3 H Cancelled 5.3 H
Chloride 94 L Cancelled 96 L
Carbon Dioxide 19 L Cancelled 16 L
BUN 42 H Cancelled 42 H
Creatinine 8.7 H* Cancelled 8.6 H*
Glucose 101 H Cancelled 86
Calcium 8.2 L Cancelled 8.2 L
Total Bilirubin 0.2
AST 30
ALT 15
Alkaline Phosphatase 93
12/21/23
16:00
WBC
Hgb
Hct
Plt Count
Sodium Pending
Potassium Pending
Chloride Pending
Carbon Dioxide Pending
BUN Pending
Creatinine Pending
Glucose Pending
Calcium Pending
Total Bilirubin
AST
ALT
Alkaline Phosphatase
Vital Signs:
Vital Signs
Temp Pulse Resp BP Pulse Ox
97.5 F 67 23 130/56 98
12/21/23 08:00 12/21/23 06:00 12/21/23 06:00 12/21/23 06:00 12/21/23 08:00
I&O
12/20/23 12/21/23 12/22/23
06:59 06:59 06:59
Intake Total 675 / 675 190 / 190
Output Total 1200 / 1200 1370 / 1370
Balance -525 / -525 -1180 / -1180
Review of Systems
-
History Source: Patient
All other systems: Reviewed and negative
Physical Exam
-
General: No Apparent Distress
HEENT: Normocephalic
Respiratory: Clear to Auscultation
Cardiac: Regular Rhythm
GI: Soft, Nontender and Nondistended
Musculoskeletal: No Clubbing and No Cyanosis
Skin: Warm
Neuro: Awake, Alert, Oriented and AO x 3
Psych: Calm
--- NOTE | 2023-12-21 09:54 | PTCARENOTE ---
Assumed care of pt from night RN, pt AAOx3, some forgetfulness at times. Dressings CDI to LE at this time. Pt seems deconditioned, reports no pain at this time. Repositioned in bed frequently. Will continue to monitor through shift.
[2023-12-21] MEDS: MAXIPIME 5.65 MG IV (12:52)
[2023-12-21] MEDS: FERRLECIT 110 MG IV (14:00)
--- NOTE | 2023-12-21 14:33 | W.CS.POD ---
Consult Summary - Podiatry
-
73 yo male with past medical history of pyoderma gangrenosum, angioplasty left superficial femoral artery stenosis 09/02/[address] Elizabeth, PVD, chronic right lower extremity open ulceration/chronic wounds left lower extremity status post debridement
with skin grafting June 2023 [facility], chronic microcytic anemia elevated PSA, hyponatremia, squamous cell CA to bilateral lower legs treated at [facility] 2020, PVD, HTN, HLD, obesity, alcohol abuse, Raynaud's to hands, RA was on Remicade last dose
February 2023
He was at a rehab after partial hip arthroplasty and brought in to the hosp with abnormal BUN/Cr. Currently he is doing good, no acute distress, no fever, chills, awake, alert.
Exam : b/l lower legs intact pedal pulses
No edema o b/l lower legs . B/L lower legs with large, pink granular, tender ulcerations with serous drainage noted.
Some areas of scaly skin noted around the ulcerations, no exposed bone, no deep tunneling noted.
Rt heel ulcer stable superficial ulcer, no active purulence, no local erythema, no exposed bone
A/p: Chronic non healing ulcerations b/l lower legs
Pyoderma gangrenosum
Chronic venous stasis disease. H/o squamous cell carcinoma
plan ; cont abx
Will cont local wound care with alginate and compression wraps.to both lower legs
pending wound culture from today.
Rt heel xrays negative for any pathology/osteomyelitis.
Elevate both heel with pillows .
--- NOTE | 2023-12-21 15:39 | CM ---
Chart reviewed and case management coordinator spoke with physical therapy, per notes there is no indication that patient is for transfer to [place], patient had I&D on admission, patient requiring BID dressing changes, plan to watch for new HD. Patient was admitted
from [facility], he is hoping not to return to [facility].
Plan; Await medical updates especially from nephrology on plan for patient. Skilled placement, [facility] maybe another option for patient will need to discuss.
--- NOTE | 2023-12-21 16:47 | PHA.VAN.IN ---
Assessment
- Assessment
Renal Function: Appears elevated from baseline (0.9)
Concomitant Antimicrobials: cefepime
Historical Micro: History of MRSA infection (wound culture 04/02/23)
Plan
- Plan
Initial / Loading Dose: vancomycin 1500mg pending administration
Maintenance Regimen: dosing by level
Monitoring: random level 12/22/23 0600
Pharmacokinetics Vancomycin I
- -
Patient Age: 73
Patient Sex: Male
Vancomycin Day #: 1
Indication: Skin And Soft Tissue
Requesting Provider: Dr. Duran
Pertinent Antimicrobial Allergies:
no pertinent antimicrobial allergies
Height / Weight:
Height 6 ft 4 in
Actual Weight 88.1 kg
- Vital Signs / Lab Results
Temp Pulse Resp BP Pulse Ox
98.2 F 69 14 138/67 97
12/21/23 14:00 12/21/23 10:00 12/21/23 10:00 12/21/23 10:00 12/21/23 10:00
Lab Results - Hematology
12/19/23 12/20/23 12/21/23
11:57 04:51 04:29
WBC 12.1 H 9.8 8.3
Lab Results - Chemistry
12/19/23 12/19/23 12/20/23
11:57 21:29 04:51
BUN 40 H 40 H Cancelled
Creatinine 7.9 H* 7.9 H*
Estimated Creat Clear 10 10
Albumin 3.3 L
12/20/23 12/20/23 12/20/23
04:51 04:51 04:51
BUN 40 H Cancelled
Creatinine Cancelled 8.2 H*
Estimated Creat Clear
Albumin
12/20/23 12/20/23 12/20/23
04:51 04:51 04:51
BUN
Creatinine Cancelled
Estimated Creat Clear Cancelled 10 Cancelled
Albumin 3.0 L
12/20/23 12/20/23 12/20/23
12:37 17:16 23:22
BUN 42 H 41 H 42 H
Creatinine 8.3 H* 8.7 H* 8.7 H*
Estimated Creat Clear 10 9 9
Albumin
12/21/23 12/21/23
03:00 04:29
BUN Cancelled 42 H
Creatinine Cancelled 8.6 H*
Estimated Creat Clear Cancelled 9
Albumin 2.7 L
Lab Results - Urine
12/19/23
15:13
Urine Nitrite (Reflex) Negative
Leukocyte Esterase Rfl Negative
[2023-12-21] MEDS: VANCOCIN 300 ML IV (16:59)
[2023-12-21] MEDS: VANCOCIN 300 MG IV (16:59)
[2023-12-21 17:23] LABS: Blood Urea Nitrogen 46 mg/dl (9-20); Calcium 8.5 mg/dl (8.4-10.2); Carbon Dioxide 22 mmol/L (22-30); Chloride 93 mmol/L (98-107); Estimated Creatinine Clearance 9 ml/min; Glucose 101 mg/dl (70-99); Potassium 5.1 mmol/L (3.5-5.1); Sodium 127 mmol/L (135-145); eGFR 5.73
[2023-12-21] MEDS: CRESTOR 40 MG PO (21:26)
[2023-12-22] VITALS (23 sets, daily range): BP systolic 63–151; BP diastolic 46–102; BMI 23.7
--- NOTE | 2023-12-22 02:32 | PTCARENOTE ---
Pt received from previous RN. Pt tired, AAOx3. Pt had dinner, ate 100%. pt is anxious at times r/t overall care/ necessity for care interventions. Pt provided with reassurance by this RN. Elizabeth remains in place, draining moderate amounts of yellow
urine. Elizabeth care preformed by this RN. Wound care completed for B/L LE wounds. Pt denies further needs a this time. Call light in reach.
[2023-12-22 05:49] LABS: % Basophils 0.5 % (0-2); % Eosinophils 14.9 % (0-6); % Immature Granulocytes 0.4 % (0-0.5); % Lymphocytes 27.2 % (20.5-51.1); % Monocytes 13.2 % (1.7-9.3); % Neutrophils 43.8 % (42.2-75.2); Absolute Basophils 0.1 10^3/uL (0-0.2); Absolute Eosinophils 1.5 10^3/uL (0-0.7); Absolute Lymphocytes 2.7 10^3/uL (1.2-3.4); Absolute Monocytes 1.3 10^3/uL (0.1-0.6); Absolute Neutrophils 4.3 10^3/uL (1.4-6.5); Hemoglobin 8.8 g/dL (13.0-18.0); Mean Corp Hgb Conc. 33.8 g/dL (33.0-37.0); Mean Corpuscular Hgb 24.3 pg (27.0-31.0); Mean Corpuscular Volume 71.8 fL (80.0-94.0); Mean Platelet Volume 8.1 fL (7.4-10.4); Nucleated Red Blood Cells % 0 % (-); Platelet Count 237 10^3/uL (130-400); Red Blood Cell Count 3.62 10^6/uL (4.70-6.10); Red Cell Dist. Width 17.2 % (11.5-14.5); White Blood Cell Count 9.8 10^3/uL (4.8-10.8)
[2023-12-22 06:16] LABS: Vancomycin Random 13.2 ug/ml
[2023-12-22 06:58] LABS: ALT (SGPT) 16 U/L (0-50); AST (SGOT) 34 U/L (17-59); Alkaline Phosphatase 96 U/L (38-126); Blood Urea Nitrogen 44 mg/dl (9-20); Calcium 8.6 mg/dl (8.4-10.2); Carbon Dioxide 20 mmol/L (22-30); Chloride 95 mmol/L (98-107); Estimated Creatinine Clearance 9 ml/min; Glucose 96 mg/dl (70-99); Potassium 5.2 mmol/L (3.5-5.1); Sodium 129 mmol/L (135-145); Total Bilirubin 0.3 mg/dl (0.2-1.3); Total Protein 5.4 g/dl (6.3-8.2); eGFR 5.51
[2023-12-22] MEDS: HEPARIN 5000 UNITS SC ×2 (09:15→20:12)
[2023-12-22] MEDS: OCUVITE SOFTGEL 1 CAP PO (09:15)
[2023-12-22] MEDS: VITAMIN C 500 MG PO (09:15)
[2023-12-22] MEDS: FLOMAX 0.4 MG PO (09:15)
[2023-12-22] MEDS: NEURONTIN 100 MG PO ×3 (09:15→20:12)
[2023-12-22] MEDS: THERAGRAN 1 TABLET PO (09:15)
--- NOTE | 2023-12-22 10:16 | PTCARENOTE ---
Multiple discussions this am regarding HD cath placement, pt in denial over current health situation- encouraged to reach out to family- daughter and 2 friends came and all discussed situation and pt now agreeable to temporary HD and cath placement.
Sent to [facility]. Discussion with friend and daughter regarding future discussions about living [place] and poa had- would like to touch base about that with case management. Will relay. Emotional support provided to pt and family.
--- NOTE | 2023-12-22 11:24 | PHA.VAN.FU ---
Vancomycin Assessment / Plan
- Assessment
Renal Function: Stable
WBC's are: WNL
In the past 24 hrs, patient has been: Afebrile
Concomitant Antimicrobials: Cefepime
- Assessment - Therapeutic Drug Monitoring
Random Level: 13.2 - drawn ~12.5H after initial dose of 1500mg
- Dosing Plan
Dosing by Level: Re-dose today (Vanc 750mg at end of HD)
- Monitoring Plan
Random Level: 12/22 06
- Follow Up
Pharmacy will continue to follow.
Vancomycin Follow UP
- -
Patient Age: 73
Patient Sex: Male
Vancomycin Day #: 2
Indication: Skin And Soft Tissue
Requesting Provider: Dr. Duran
Pertinent Antimicrobial Allergies:
no pertinent antimicrobial allergies
Height / Weight:
Height 6 ft 4 in
Actual Weight 88.2 kg
- Vital Signs / Lab Results
Temp Pulse Resp BP Pulse Ox
98.1 F 73 19 126/46 98
12/22/23 10:00 12/22/23 10:00 12/22/23 10:00 12/22/23 10:06 12/22/23 10:00
Lab Results - Hematology
12/19/23 12/20/23 12/21/23
11:57 04:51 04:29
WBC 12.1 H 9.8 8.3
12/22/23
05:29
WBC 9.8
Lab Results - Chemistry
12/19/23 12/19/23 12/20/23
11:57 21:29 04:51
BUN 40 H 40 H Cancelled
Creatinine 7.9 H* 7.9 H*
Estimated Creat Clear 10 10
Albumin 3.3 L
12/20/23 12/20/23 12/20/23
04:51 04:51 04:51
BUN 40 H Cancelled
Creatinine Cancelled 8.2 H*
Estimated Creat Clear
Albumin
12/20/23 12/20/23 12/20/23
04:51 04:51 04:51
BUN
Creatinine Cancelled
Estimated Creat Clear Cancelled 10 Cancelled
Albumin 3.0 L
12/20/23 12/20/23 12/20/23
12:37 17:16 23:22
BUN 42 H 41 H 42 H
Creatinine 8.3 H* 8.7 H* 8.7 H*
Estimated Creat Clear 10 9 9
Albumin
12/21/23 12/21/23 12/21/23
03:00 04:29 16:51
BUN Cancelled 42 H 46 H
Creatinine Cancelled 8.6 H* 8.9 H*
Estimated Creat Clear Cancelled 9 9
Albumin 2.7 L
12/22/23
05:29
BUN 44 H
Creatinine 9.2 H*
Estimated Creat Clear 9
Albumin 3.0 L
Microbiology Results
12/21/23 11:18 Wound Culture - Preliminary
Leg - Left Gram Stain - Preliminary
Therapeutic Drug Monitoring
Random Vancomycin 13.2 ug/ml 12/22/23 05:29
--- NOTE | 2023-12-22 11:38 | W.PN.ID1 ---
Date of Service
Date of Service: December 22, 2023
Today's Communication
Continue Vanco and cefepime for now.
Assessment / Plan
# LLE wounds with acute drainage
# Chronic BLE extensive venous stasis wounds s/p I+D, skin grafts at [facility] Apr,May 2023
- Has been on prolonged abx outpt x 2 months
- Had been on cipro since 11/23 to 12/17. Of note 11/07/23 Wound cx few Pseudomonas with intermediate resistance to levofloxacin. Also heavy growth MRSA (R) doxy
- LLE drainage cx pending.
- Continue Vancomycin (d2) and cefepime (d3) for now.
- Continue wound care.
# LISANDRO unclear etiology
- nephrology following
# Additional Past Medical History:
HTN
HLD
alcohol abuse
Raynaud's to hands
RA, last received Remicade 02/2023
pyoderma gangrenosum by biopsy 2019
angioplasty left superficial femoral artery stenosis 09/02/[address] Elizabeth
PVD
chronic right lower extremity open ulcerations to muscle, chronic left lower extremity wounds all status post debridement with grafting at [facility] 2023
elevated PSA
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
Right hip fracture s/p Girdlestone procedure 11/18/23
Facial Reconstruction
Vein Stripping
Chief Complaint
-: Cellulitis
Subjective / Review of Systems
No new complaints.
Vital Signs / Physical Exam
Vital Signs
Vital Signs
Temp Pulse Resp BP Pulse Ox
98.1 F 63 14 140/56 98
12/22/23 10:00 12/22/23 11:30 12/22/23 11:30 12/22/23 11:30 12/22/23 10:00
Physical Exam
Constitutional: No Acute Distress
Cardiovascular: Regular Rate and S1/S2
Pulmonary: Clear
Gastrointestinal: Soft, Non Tender and Non Distended
Extremities: Negative Edema
Wound: Other (BLE dressings dry)
Objective Data
Lab Data
Lab Results
12/22/23 05:29
12/22/23 05:29
PT 14.7 Sec (11.4-14.6) H 12/20/23 12:37
INR 1.14 12/20/23 12:37
Estimated Creat Clear 9 ml/min 12/22/23 05:29
Total Bilirubin 0.3 mg/dl (0.2-1.3) 12/22/23 05:29
AST 34 U/L (17-59) 12/22/23 05:29
ALT 16 U/L (0-50) 12/22/23 05:29
Alkaline Phosphatase 96 U/L (38-126) 12/22/23 05:29
Most recent labs reviewed.
Micro Results:
12/21/23 11:18 Wound Culture - Preliminary
Leg - Left Gram Stain - Preliminary
12/19/23 CXR: Small right pleural effusion. New.
12/19/23 Renal US: Unremarkable exam of the kidneys.
--- NOTE | 2023-12-22 12:10 | W.PN.HOSP.TC ---
Today's Communication/Plan
-
Nephro for HD
cont Abx
discussing immunosupression with ID
Assessment / Plan
Assessment / Plan
73yo M with PMHx of PVD, pyoderma gangrenosumchronic R heel ulcer, Hx of L heel wound skin graftin in 07/11, b/l LE squamous cell carconoma of the skin, HTN, HLD, Hx of alcohol abuse, RA with raynaud, elevated PSA, recently disscharged from [facility], where he was managed for R hip Fx and b/l LE cellulitis as well as worsening on RLE wound, started on CIprofloxacin by , then sent to [facility] rehab. Had blood test done in rehab showing worsening of his kidney
function, so he was sent to the hospital. Also found hyponatremia
A/P:
#LISANDRO 2/2 most likely AIN
#hyponatremias
#hyperkalemia
nephrology mgmt: initiate HD
s/p 3% saline on 12/20/23
Serial BMP - target sodium increase by 6-8meq per 24h
Cr upon d/c from [facility] in Nov was 1.75
#b/l le cellulitis with venous stasis wounds, L worse then R
#Pyoderma gangrenosum
Was growing MRSA and pseudomonas in [facility] and planned to continue on Cipro upon d/c
As per conversation with - plan was to clear the infection before further attempted R hip VERNON
Will start renally dosed Cefepime for previous cellulitis, if HD initiated - increase dosage to 1g q24h, check wound Cx. ID follows - Christie added. Initially was on Cipro -12/18/23
Podiatry eval
wound care
Stopped Remicade in Feb 2024 - will need to be started on immunosuppression since with non-healed PG - infection will be either recurrent or recalcitrant as already on prolonged Abx. Stopped seeing Rheum. Communicated with rheumatology. With
active infection - would avoid steroids for induction, will further discuss with ID
#BPH
now with Elizabeth
#HLD
cont rosuvastatin eventually
#R hip Fx
previously post-OP
#RA with Regnauld
cont outpatient mgmt upon d/c
#Chronic microcytic anemia
#PVD s/p baloon angio
#NEuropathy
cont hoem meds when possible
#b/l LE skin CA
follows in [facility]
DVT ppx hep
FUll code
I have spent at least 39min reviewing chart, test results, communication with consultants and direcct patient care
Anticipated Discharge: > 48 hours
Subjective/Interval History
-
Date of Service: December 22, 2023
Objective Data
-
Labs:
Laboratory Results
12/22/23
05:29
WBC 9.8
Hgb 8.8 L
Hct 26.0 L
Plt Count 237
Sodium 129 L
Potassium 5.2 H
Chloride 95 L
Carbon Dioxide 20 L
BUN 44 H
Creatinine 9.2 H*
Glucose 96
Calcium 8.6
Total Bilirubin 0.3
AST 34
ALT 16
Alkaline Phosphatase 96
Vital Signs:
Vital Signs
Temp Pulse Resp BP Pulse Ox
98.1 F 63 14 140/56 98
12/22/23 10:00 12/22/23 11:30 12/22/23 11:30 12/22/23 11:30 12/22/23 10:00
I&O
12/21/23 12/22/23 12/23/23
06:59 06:59 06:59
Intake Total 190 / 190 1630 / 1630
Output Total 1370 / 1370 1000 / 1000
Balance -1180 / -1180 630 / 630
Review of Systems
-
History Source: Patient
All other systems: Reviewed and negative
Physical Exam
-
General: No Apparent Distress
HEENT: Normocephalic
Respiratory: Clear to Auscultation
Cardiac: Regular Rhythm
GI: Soft, Nontender and Nondistended
Musculoskeletal: No Clubbing, No Cyanosis and No Edema
Skin: Other (b/l LE wounds, L lower lip nodule)
Neuro: Awake, Alert, Oriented and AO x 3
Psych: Calm
[2023-12-22] MEDS: MANNITOL 25% 12.5 GRAMS IV ×2 (12:35→13:50)
--- NOTE | 2023-12-22 12:42 | W.PN.UPDATE ---
Update Note
Progress Note Update
As per further communication with Traffic Division Commanding Officer - patient has chronic venous insufficiency, not PG. Poor control of venous insufficiency caused further venous wounds. [facility] biopsy wuled it out
Cont wound care and get VascSx consult. No need in immunosuppression at this time
[2023-12-22] MEDS: FERRLECIT 110 MG IV (13:29)
--- NOTE | 2023-12-22 13:49 | CON.VAS ---
Addendum entered and electronically signed by Viktor Welsh MD 12/27/23 10:58:
Seen and examined today with PRODUCT DEVELOPMENT MANAGER [place] and JAZ Interiano. Findings as noted below. Here w LISANDRO/HD. Chronic LE b/l wounds. Follows w [facility] wound care team/plastics.
Feet both warm/pink. No rubor , no foot ulcerations. Calves wrapped b/l.
Non invasive studies reviewed. TBIs wnl b/l.
Plan/ adequate perfusion likely for wound healing. Patient wishes to f/u at [facility] with his team there regarding wounds. Will sign off. Please call w questions.
Original Note:
Consultation
Consultation Request
Performing Provider: Clara
Reason for Consultation: PAD/PVD
Medical History
-
Chief Complaint: LISANDRO
History of Present Illness:
73 year old male hx HTN, HLD, venous insufficiency, PAD who presents with chronic nonhealing bilateral lower extremity wounds and LISANDRO newly in HD. Pt was recently admitted at [facility] for right hip fracture. While admitted he states he has
debridements to his lower extremities and believes they are looking better then they have in years. He does not currently have pain to either leg.
Patient is known to the vascular surgery service and underwent bilateral lower extremity arteriogram with left SFA angioplasty on 09/02/[address] Elizabeth. He has also underwent multiple venous ablations of both lower extremities by IR in the past. He
has seen multiple specialists including dermatology, rheumatology and infectious disease. He has been treated with steroids and Remicade infusions in the past.
Since admission pt has been started in HD via catheter.
Past Medical History
Past Medical History: Cancer, HTN, Hypercholesterolemia and Other (PAD, venous insufficiency, alcohol abuse, Raynaud's)
Past Surgical History: Other (orbit fx repair, venous ablation)
Social History
Tobacco: Former Smoker
Alcohol: Former
Drug: None
Employment: Employed
Family History
Family History: Reviewed & Not Pertinent
Allergies / Home Medications
Allergy/AdvReac Type Severity Reaction Status Date / Time
aspirin Allergy Swelling Verified 11/12/23 22:41
[From Excedrin Back and Body]
caffeine Allergy Swelling Verified 11/12/23 22:41
[From Excedrin Extra
Strength]
calcium carbonate Allergy Unknown Verified 11/12/23 22:41
[From Excedrin Back and Body]
�Medication �Instructions �Recorded �Confirmed �Type
ascorbic acid (vitamin C) 500 mg 500 mg PO DAILY Supplement 02/06/23 12/19/23 History
tablet (Vitamin C)
therapeutic multivitamin 1 tab PO DAILY Supplement 02/06/23 12/19/23 History
gabapentin 600 mg tablet 600 mg PO TID pain 11/13/23 12/19/23 History
ibuprofen 200 mg tablet 600 mg PO Q8HPRN PRN mild pain 11/13/23 12/19/23 History
acetaminophen 325 mg tablet 650 mg PO Q4HPRN PRN mild pain 12/19/23 12/19/23 History
(Tylenol)
aspirin 81 mg tablet,delayed 81 mg PO BID Blood Clot 12/19/23 12/19/23 History
release Prevention/Tx
bisacodyl 10 mg rectal suppository 10 mg IN DAILYPRN PRN if no bm 12/19/23 12/19/23 History
(Dulcolax (bisacodyl)) aftr mom
ciprofloxacin HCl 500 mg tablet 500 mg PO BID infection 12/19/23 12/19/23 History
clobetasol 0.05 % topical ointment 1 applic topical DAILY 12/19/23 12/19/23 History
eczema,psoriasis,rash
docusate sodium 100 mg capsule 100 mg PO DAILY Constipation 12/19/23 12/19/23 History
(Colace)
losartan 25 mg tablet 25 mg PO BID blood pressure 12/19/23 12/19/23 History
magnesium hydroxide 400 mg/5 mL 2,400 mg PO [id number] PRN 12/19/23 12/19/23 History
oral suspension (Milk of Magnesia) constipation
mupirocin 2 % topical ointment 1 applic topical DAILYPRN PRN 12/19/23 12/19/23 History
impetigo
oxycodone 5 mg tablet 5 mg PO Q8HPRN PRN severe pain 12/19/23 12/19/23 History
rosuvastatin 40 mg tablet (Crestor) 40 mg PO HS High Cholesterol 12/19/23 12/19/23 History
sodium phosphates 19 gram-7 118 ml IN DAILYPRN PRN if no bm 12/19/23 12/19/23 History
gram/118 mL enema (Fleet Enema) aftr dulcolax
tamsulosin 0.4 mg capsule (Flomax) 0.4 mg PO DAILY Urinary Issue 12/19/23 12/19/23 History
vitamins A,C,I-ghxg-cuelnb 2,148 1 tab PO DAILY Supplement 12/19/23 12/19/23 History
mcg-113 mg-45 mg-17.4 mg tablet
(PreserVision AREDS)
Review of Systems
-
History Source: Patient
Constitutional: Reports No Symptoms
EENT: Reports No Symptoms
Respiratory: Reports No Symptoms
Cardiac: Reports No Symptoms
Vascular: Denies Leg Pain / Claudication
Abdomen/GI: Reports No Symptoms
: Reports No Symptoms
Musculoskeletal: Reports No Symptoms
Skin: Reports Other (Chronic ulcerations BL LE)
Neurological: Reports No Symptoms
Endocrine: Reports No Symptoms
Physical Exam
Vital Signs
Temp Pulse Resp BP Pulse Ox
98.2 F 63 14 140/56 98
12/22/23 12:05 12/22/23 11:30 12/22/23 11:30 12/22/23 11:30 12/22/23 10:00
Lab Results
12/22/23 05:29
12/22/23 05:29
Physical Exam
General: No Apparent Distress
HEENT: Normocephalic and Atraumatic
Respiratory: Non Labored Respirations
Cardiac: Negative JVD
GI: Soft, Non Tender and Non Distended
Musculoskeletal: No Clubbing, No Cyanosis and No Edema
Skin: Dry and Other (See wound care notes for images)
Neuro: Awake, Alert and Oriented
Psych: Calm
Pulses: Left Posterior Tibial: +1
Assessment / Plan
-
Plan:
-Arterial US pending
-Cont local wound care
-Pt wishes to continue to follow with his Plastic surgeon at [facility] as they are making good headway on his LE wounds
[2023-12-22] MEDS: VANCOCIN 150 IV (13:50)
--- NOTE | 2023-12-22 14:23 | W.PN.NEPH.HD ---
Assessment
-
Pt seen during HD
vitals stable
no UF planned
SAMMI and IV fe course for anemia
abx per ID
temp catheter function fine
next HD tomorrow
reviewed with pt that likely dialysis short term jerode he had normal cr recently but duration is not clear at this time
Progress Note - Hemodialysis
-
Date of Service: December 22, 2023
Duration: 30 minutes and 2 hours
Potassium Bath: 2
Calcium Bath: 2.5
Opti-Dialyzer: 160
Ultrafiltration: Other (0)
Blood Flow: 250
Dialysate Flow: 600
Heparin: no
EPO: 6000
--- NOTE | 2023-12-22 14:25 | CM ---
Patient from [facility] with Dx Acute renal failure, bilateral LE cellulitis with venous stasis wounds. Room air. Nontunneled HD catheter placed today with plan start HD today Receiving IV Abx, Fe Na Gluconate. Seen by wound care nurse.-
BID wound care left leg. PT/OT recommend skilled rehab.
Notified by nurse that daughter wants info on Living Will & POA.
Phone call to daughter Sandra; left message advising that she can go to [employer] to obtain official PA POA forms.
Plan follow up with patient/daughter re; SNF options with HD.
[2023-12-22] MEDS: RETACRIT 6000 UNITS IV (14:34)
[2023-12-22] MEDS: MAXIPIME 5.65 MG IV (14:35)
--- NOTE | 2023-12-22 14:44 | PTCARENOTE ---
Returned to room around 1200 RCW HD Cath CDI, HD initiated.
[2023-12-22] MEDS: HEPARIN 2500 UNITS INTRACATH (14:49)
[2023-12-22 15:06] LABS: Iron 133 ug/dl (49-181)
[2023-12-22 15:17] LABS: Percent Saturation 59 % (20-50); Total Iron Binding Capacity 223 ug/dl (261-462)
[2023-12-22] MEDS: HYDROPHOR 1 APPLIC TOPICAL ×2 (16:04→20:12)
[2023-12-22] MEDS: ULTRAVATE 0.05% 1 APPLIC TOPICAL (16:05)
[2023-12-22 16:50] LABS: Hepatitis B Surface Antigen Negative (Negative)
[2023-12-22 17:08] LABS: Hepatitis B Core Ab, Total Negative (Negative); Hepatitis B Surface Antibody Negative; Hepatitis C Antibody Negative (Negative)
--- NOTE | 2023-12-22 19:17 | PTCARENOTE ---
Tolerated HD today, pt feeling ok, VSS documented. Wound care completed to bilateral LE. Elizabeth emptied 500ml clear yellow urine this shift. Denies pain. Daughter back this pm- very supportive.
[2023-12-22] MEDS: CRESTOR 40 MG PO (20:12)
--- NOTE | 2023-12-22 21:49 | PTCARENOTE ---
Pt did self oral care after setup. Refuses CHG bath with having newly placed non-tunnelled HD cath. Pt educated on reason for CHG bath for infection prevention. AAOx3. Will attempt CHG bath again in AM.
[2023-12-23] VITALS (25 sets, daily range): BP systolic 114–180; BP diastolic 53–91; BMI 23.2
--- NOTE | 2023-12-23 03:55 | PTCARENOTE ---
Pt received at beginning of shift resting in bed. AAOx3. Drowsy. Flat affect. VSS. Afebrile. SR/1st AVB on CM. Elizabeth draining yellow urine. LE dressings c/d/i. Acre wraps on. Right leg rotated out. On pillow and support with small foam wedge. Pt
denies any pain or discomfort. Rest of assessment as documented. Maintained on Q2hr turns. Call loredo remains within reach. Will continue to monitor.
[2023-12-23 06:00] LABS: % Basophils 0.8 % (0-2); % Eosinophils 13.5 % (0-6); % Immature Granulocytes 0.2 % (0-0.5); % Lymphocytes 27.8 % (20.5-51.1); % Monocytes 14.2 % (1.7-9.3); % Neutrophils 43.5 % (42.2-75.2); Absolute Basophils 0.1 10^3/uL (0-0.2); Absolute Eosinophils 1.2 10^3/uL (0-0.7); Absolute Lymphocytes 2.4 10^3/uL (1.2-3.4); Absolute Monocytes 1.2 10^3/uL (0.1-0.6); Absolute Neutrophils 3.7 10^3/uL (1.4-6.5); Hematocrit 23.4 % (39.0-52.0); Hemoglobin 7.8 g/dL (13.0-18.0); Mean Corp Hgb Conc. 33.3 g/dL (33.0-37.0); Mean Corpuscular Hgb 23.6 pg (27.0-31.0); Mean Corpuscular Volume 70.7 fL (80.0-94.0); Mean Platelet Volume 8.5 fL (7.4-10.4); Nucleated Red Blood Cells % 0 % (-); Platelet Count 201 10^3/uL (130-400); Red Blood Cell Count 3.31 10^6/uL (4.70-6.10); Red Cell Dist. Width 17.2 % (11.5-14.5); White Blood Cell Count 8.6 10^3/uL (4.8-10.8)
[2023-12-23 06:26] LABS: ALT (SGPT) 17 U/L (0-50); AST (SGOT) 36 U/L (17-59); Albumin 2.7 g/dl (3.5-5.0); Alkaline Phosphatase 91 U/L (38-126); Blood Urea Nitrogen 33 mg/dl (9-20); Calcium 8.4 mg/dl (8.4-10.2); Carbon Dioxide 22 mmol/L (22-30); Chloride 97 mmol/L (98-107); Estimated Creatinine Clearance 12 ml/min; Glucose 91 mg/dl (70-99); Potassium 4.5 mmol/L (3.5-5.1); Sodium 133 mmol/L (135-145); Total Bilirubin < 0.1 mg/dl (0.2-1.3); eGFR 8.36
--- NOTE | 2023-12-23 08:11 | PHA.VAN.FU ---
Vancomycin Assessment / Plan
- Assessment
Renal Function: SCR Decreasing
Hemodialysis Schedule: Other (FRI, SAT, SUN)
WBC's are: WNL
In the past 24 hrs, patient has been: Afebrile
Concomitant Antimicrobials: CEFEPIME
- Assessment - Therapeutic Drug Monitoring
Random Level: 14
- Dosing Plan
Dosing by Level: Re-dose today (500MG)
- Monitoring Plan
Random Level: 10 IN AM
- Follow Up
Pharmacy will continue to follow.
Vancomycin Follow UP
- -
Patient Age: 73
Patient Sex: Male
Vancomycin Day #: 3
Indication: Skin And Soft Tissue
Requesting Provider: Dr. Duran
Pertinent Antimicrobial Allergies:
no pertinent antimicrobial allergies
Height / Weight:
Height 6 ft 4 in
Actual Weight 86.6 kg
- Vital Signs / Lab Results
Temp Pulse Resp BP Pulse Ox
98.0 F 68 14 136/62 93
12/23/23 07:00 12/23/23 06:00 12/23/23 06:00 12/23/23 04:00 12/23/23 06:00
Lab Results - Hematology
12/21/23 12/22/23 12/23/23
04:29 05:29 05:34
WBC 8.3 9.8 8.6
Lab Results - Chemistry
12/20/23 12/20/23 12/20/23
12:37 17:16 23:22
BUN 42 H 41 H 42 H
Creatinine 8.3 H* 8.7 H* 8.7 H*
Estimated Creat Clear 10 9 9
Albumin
12/21/23 12/21/23 12/21/23
03:00 04:29 16:51
BUN Cancelled 42 H 46 H
Creatinine Cancelled 8.6 H* 8.9 H*
Estimated Creat Clear Cancelled 9 9
Albumin 2.7 L
12/22/23 12/23/23
05:29 05:34
BUN 44 H 33 H
Creatinine 9.2 H* 6.5 H*
Estimated Creat Clear 9 12
Albumin 3.0 L 2.7 L
Microbiology Results
12/21/23 11:18 Wound Culture - Preliminary
Leg - Left Gram Stain - Preliminary
Therapeutic Drug Monitoring
Random Vancomycin 14.0 ug/ml 12/23/23 05:34
[2023-12-23] MEDS: VITAMIN C 500 MG PO (08:45)
[2023-12-23] MEDS: THERAGRAN 1 TABLET PO (08:45)
[2023-12-23] MEDS: FLOMAX 0.4 MG PO (08:45)
[2023-12-23] MEDS: OCUVITE SOFTGEL 1 CAP PO (08:45)
[2023-12-23] MEDS: NEURONTIN 100 MG PO ×3 (08:45→20:47)
[2023-12-23] MEDS: HEPARIN 5000 UNITS SC ×2 (08:46→20:46)
[2023-12-23] MEDS: HYDROPHOR 1 APPLIC TOPICAL ×2 (08:46→20:47)
[2023-12-23] MEDS: ULTRAVATE 0.05% 1 APPLIC TOPICAL (08:47)
--- NOTE | 2023-12-23 09:02 | PTCARENOTE ---
pt wakes to name states no pain or sob. min movement in right leg. bilat leg wrapped. breath sounds diminished.
--- NOTE | 2023-12-23 09:12 | W.PN.ID1 ---
Date of Service
Date of Service: December 23, 2023
Today's Communication
Continue antibiotics.
Assessment / Plan
# LLE wounds with acute drainage
# Chronic BLE extensive venous stasis wounds s/p I+D, skin grafts at [facility] Apr,May 2023
- Has been on prolonged abx outpt x 2 months
- Had been on cipro since 11/23 to 12/17. Of note 11/07/23 Wound cx few Pseudomonas with intermediate resistance to levofloxacin. Also heavy growth MRSA (R) doxy
- LLE drainage cx pending.
- Continue Vancomycin (d#3) and cefepime (d#4)
- Continue wound care.
# LISANDRO unclear etiology
- nephrology following
# Additional Past Medical History:
HTN
HLD
alcohol abuse
Raynaud's to hands
RA, last received Remicade 02/2023
pyoderma gangrenosum by biopsy 2019
angioplasty left superficial femoral artery stenosis 09/02/[address] Elizabeth
PVD
chronic right lower extremity open ulcerations to muscle, chronic left lower extremity wounds all status post debridement with grafting at [facility]23
elevated PSA
squamous cell CA to bilateral lower legs treated at [facility] 2019
Right hip fracture s/p Girdlestone procedure 11/18/23
Facial Reconstruction
Vein Stripping
Chief Complaint
-: Cellulitis
Subjective / Review of Systems
Review of Systems: No Fever and No Chills
Vital Signs / Physical Exam
Vital Signs
Vital Signs
Temp Pulse Resp BP Pulse Ox
98.0 F 60 12 120/58 96
12/23/23 07:00 12/23/23 08:00 12/23/23 08:00 12/23/23 08:00 12/23/23 08:00
Physical Exam
Constitutional: No Acute Distress
Eyes: Sclera Anicteric
Cardiovascular: Regular Rate and S1/S2
Pulmonary: Clear
Gastrointestinal: Soft, Non Tender and Non Distended
Extremities: Venous Insufficiency and Other (Kai wrap was applied to the bilateral lower extremities.)
Wound: Other (BLE dressings dry)
Neurological: Awake and Alert
Psychological: Calm
Objective Data
Lab Data
Lab Results
12/23/23 05:34
12/23/23 05:34
PT 14.7 Sec (11.4-14.6) H 12/20/23 12:37
INR 1.14 12/20/23 12:37
Estimated Creat Clear 12 ml/min 12/23/23 05:34
Total Bilirubin < 0.1 mg/dl (0.2-1.3) L 12/23/23 05:34
AST 36 U/L (17-59) 12/23/23 05:34
ALT 17 U/L (0-50) 12/23/23 05:34
Alkaline Phosphatase 91 U/L (38-126) 12/23/23 05:34
Most recent labs reviewed.
Micro Results:
12/21/23 11:18 Wound Culture - Preliminary
Leg - Left Gram Stain - Preliminary
12/19/23 CXR: Small right pleural effusion. New.
12/19/23 Renal US: Unremarkable exam of the kidneys.
[2023-12-23] MEDS: MAXIPIME 5.65 MG IV (11:26)
--- NOTE | 2023-12-23 12:55 | PTCARENOTE ---
bilat leg dressing changed as ordered
[2023-12-23] MEDS: HEPARIN 500 UNITS IV ×2 (13:10→14:10)
--- NOTE | 2023-12-23 13:15 | W.PN.HOSP.TC ---
Today's Communication/Plan
-
Increase Cefepime to 1g daily since HD initiated
COnt Vanco
Nephro for HD
Assessment / Plan
Assessment / Plan
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
the skin, HTN, HLD, Hx of alcohol abuse, RA with Raynaud, elevated PSA, recently discharged from [facility] in [facility], where he was managed for R hip Fx and b/l LE cellulitis as well as worsening on RLE wound, started on Ciprofloxacin by
, then sent to [facility] rehab. Had blood test done in rehab showing worsening of his kidney function, so he was sent to the hospital. Also found hyponatremia. Started on HD via non-tunneled catheter and continued on Abx for LE vascular
wounds
A/P:
#LISANDRO 2/2 most likely AIN
#hyponatremias
#hyperkalemia
nephrology mgmt: initiate HD
s/p 3% saline on 12/20/23
Serial BMP - target sodium increase by 6-8meq per 24h
Cr upon d/c from [facility] in Nov was 1.75
#b/l le cellulitis with venous stasis wounds, L worse then R
#Pyoderma gangrenosum ruled out
Was growing MRSA and pseudomonas in [facility] and planned to continue on Cipro upon d/c
As per conversation with - plan was to clear the infection before further attempted R hip VERNON
Will start renally dosed Cefepime for previous cellulitis, if HD initiated - increase dosage to 1g q24h, check wound Cx. ID follows - Vanco added. Initially was on Cipro -12/18/23
Podiatry eval
wound care
Stopped Remicade in Feb 2024
Biopsy x2 in [facility] concluded that LE wounds due to vascular insufficiency
#Acute on chronic anemia 2/2 chronic blood loss via LE wounds and LISANDRO
Epo as per Nephro
follow HGb
No SANDIP, folate or B12 deficiency found
#BPH
now with Elizabeth
#HLD
cont rosuvastatin eventually
#R hip Fx
previously post-OP
#RA with Raynaud
cont outpatient mgmt upon d/c
#Chronic microcytic anemia
#PVD s/p balloon angio
#Neuropathy
cont home meds when possible
#b/l LE skin CA
follows in [facility]
DVT ppx hep
FUll code
I have spent at least 39min reviewing chart, test results, communication with consultants and direcct patient care
Anticipated Discharge: > 48 hours
Subjective/Interval History
-
Date of Service: December 23, 2023
Objective Data
-
Labs:
Laboratory Results
12/23/23
05:34
WBC 8.6
Hgb 7.8 L
Hct 23.4 L
Plt Count 201
Sodium 133 L
Potassium 4.5
Chloride 97 L
Carbon Dioxide 22
BUN 33 H
Creatinine 6.5 H*
Glucose 91
Calcium 8.4
Total Bilirubin < 0.1 L
AST 36
ALT 17
Alkaline Phosphatase 91
Vital Signs:
Vital Signs
Temp Pulse Resp BP Pulse Ox
97.6 F 60 12 120/58 96
12/23/23 10:50 12/23/23 08:00 12/23/23 08:00 12/23/23 08:00 12/23/23 08:00
I&O
12/22/23 12/23/23 12/24/23
06:59 06:59 06:59
Intake Total 1630 / 1630 680 / 680
Output Total 1000 / 1000 950 / 950
Balance 630 / 630 -270 / -270
Review of Systems
-
History Source: Patient
All other systems: Reviewed and negative
Physical Exam
-
General: No Apparent Distress
HEENT: Normocephalic
Respiratory: Clear to Auscultation
GI: Soft, Nontender and Nondistended
Musculoskeletal: No Clubbing, No Cyanosis and No Edema
Neuro: Awake, Alert, Oriented and AO x 3
Psych: Calm
[2023-12-23] MEDS: MANNITOL 25% 12.5 GRAMS IV ×2 (13:22→14:47)
[2023-12-23] MEDS: RETACRIT 4000 UNITS IV (13:22)
[2023-12-23] MEDS: FLEXBUMIN 25% FOR HEMODIALYSIS 12.5 GRAMS IV ×2 (13:23→14:47)
--- NOTE | 2023-12-23 15:11 | W.PN.NEPH.HD ---
Assessment
-
pt seen during HD
vitals stable
non oliguric and no UF needed
Temp HD catheter functions fine
HD again tomorrow
Progress Note - Hemodialysis
-
Date of Service: December 23, 2023
Duration: 3 hours
Potassium Bath: 3
Calcium Bath: 2.5
Opti-Dialyzer: 160
Ultrafiltration: Other (0)
Blood Flow: 300
Dialysate Flow: 600
Heparin: yesx2
EPO: 4000
[2023-12-23] MEDS: VANCOCIN HCL 500 MG 100 IV (15:15)
[2023-12-23] MEDS: HEPARIN 2500 UNITS INTRACATH (16:02)
[2023-12-23] MEDS: FERRLECIT 110 MG IV (16:46)
[2023-12-23] MEDS: CRESTOR 40 MG PO (20:47)
[2023-12-24] VITALS (31 sets, daily range): BP systolic 105–155; BP diastolic 47–85; BMI 23.2
[2023-12-24 04:39] LABS: % Basophils 0.6 % (0-2); % Eosinophils 9.7 % (0-6); % Immature Granulocytes 0.4 % (0-0.5); % Lymphocytes 28.8 % (20.5-51.1); % Monocytes 13.1 % (1.7-9.3); % Neutrophils 47.4 % (42.2-75.2); Absolute Basophils 0.1 10^3/uL (0-0.2); Absolute Lymphocytes 2.9 10^3/uL (1.2-3.4); Absolute Monocytes 1.3 10^3/uL (0.1-0.6); Absolute Neutrophils 4.8 10^3/uL (1.4-6.5); Hematocrit 24.6 % (39.0-52.0); Hemoglobin 8.3 g/dL (13.0-18.0); Mean Corp Hgb Conc. 33.7 g/dL (33.0-37.0); Mean Corpuscular Hgb 25.1 pg (27.0-31.0); Mean Corpuscular Volume 74.3 fL (80.0-94.0); Mean Platelet Volume 8.8 fL (7.4-10.4); Nucleated Red Blood Cells % 0 % (-); Platelet Count 174 10^3/uL (130-400); Red Blood Cell Count 3.31 10^6/uL (4.70-6.10); Red Cell Dist. Width 17.2 % (11.5-14.5); White Blood Cell Count 10.1 10^3/uL (4.8-10.8)
[2023-12-24 05:07] LABS: Vancomycin Random 14.8 ug/ml
[2023-12-24 05:13] LABS: ALT (SGPT) 17 U/L (0-50); AST (SGOT) 38 U/L (17-59); Albumin 3.1 g/dl (3.5-5.0); Alkaline Phosphatase 96 U/L (38-126); Blood Urea Nitrogen 18 mg/dl (9-20); Calcium 8.6 mg/dl (8.4-10.2); Carbon Dioxide 27 mmol/L (22-30); Chloride 95 mmol/L (98-107); Estimated Creatinine Clearance 18 ml/min; Glucose 93 mg/dl (70-99); Potassium 3.8 mmol/L (3.5-5.1); Sodium 132 mmol/L (135-145); Total Bilirubin 0.1 mg/dl (0.2-1.3); Total Protein 5.4 g/dl (6.3-8.2); eGFR 12.99
--- NOTE | 2023-12-24 08:18 | PHA.VAN.FU ---
Vancomycin Assessment / Plan
- Assessment
Renal Function: SCR Decreasing
Hemodialysis Schedule: Other (FRI, SAT, SUN)
WBC's are: WNL
In the past 24 hrs, patient has been: Afebrile
Concomitant Antimicrobials: CEFEPIME
- Assessment - Therapeutic Drug Monitoring
Random Level: 14.8
- Dosing Plan
Dosing by Level: Re-dose today (500MG POST HD)
- Monitoring Plan
Random Level: 10/7 IN AM
- Follow Up
Pharmacy will continue to follow.
Vancomycin Follow UP
- -
Patient Age: 73
Patient Sex: Male
Vancomycin Day #: 4
Indication: Skin And Soft Tissue
Requesting Provider: Dr. Duran
Pertinent Antimicrobial Allergies:
no pertinent antimicrobial allergies
Height / Weight:
Height 6 ft 4 in
Actual Weight 86.6 kg
- Vital Signs / Lab Results
Temp Pulse Resp BP Pulse Ox
98.5 F 65 14 143/69 98
12/24/23 03:11 12/24/23 06:11 12/24/23 06:11 12/24/23 06:11 12/24/23 06:11
Lab Results - Hematology
12/22/23 12/23/23 12/24/23
05:29 05:34 04:14
WBC 9.8 8.6 10.1
Lab Results - Chemistry
12/21/23 12/22/23 12/23/23
16:51 05:29 05:34
BUN 46 H 44 H 33 H
Creatinine 8.9 H* 9.2 H* 6.5 H*
Estimated Creat Clear 9 9 12
Albumin 3.0 L 2.7 L
12/24/23
04:14
BUN 18
Creatinine 4.5 H*
Estimated Creat Clear 18
Albumin 3.1 L
Microbiology Results
12/21/23 11:18 Wound Culture - Final
Leg - Left Gram Stain - Final
Therapeutic Drug Monitoring
Random Vancomycin 14.8 ug/ml 12/24/23 04:14
[2023-12-24] MEDS: RETACRIT 4000 UNITS IV (08:47)
--- NOTE | 2023-12-24 08:51 | PTCARENOTE ---
pt aaox3. states no pain or sob. receiving HD currently. room air breath sounds clear. bilat legs with tatum wrap dressing intact.
[2023-12-24] MEDS: HEPARIN 500 UNITS IV ×2 (08:57→10:15)
--- NOTE | 2023-12-24 11:14 | W.PN.NEPH.HD ---
Assessment
-
pt seen during HD
vitals stable ano no UF since non oliguric
next HD on Monday , follow pre HD cr
can d/c goldsmith now that he is on HD and follow bladder scan
temp HD catheter functions fine
Progress Note - Hemodialysis
-
Date of Service: December 24, 2023
Duration: 30 minutes and 3 hours
Potassium Bath: 3
Calcium Bath: 2.5
Opti-Dialyzer: 160
Ultrafiltration: Other (0)
Blood Flow: 400
Dialysate Flow: 600
Heparin: yesx2
EPO: 4000
[2023-12-24] MEDS: HEPARIN 2100 UNITS INTRACATH (11:53)
[2023-12-24] MEDS: OCUVITE SOFTGEL 1 CAP PO (12:32)
[2023-12-24] MEDS: VITAMIN C 500 MG PO (12:32)
[2023-12-24] MEDS: THERAGRAN 1 TABLET PO (12:32)
[2023-12-24] MEDS: FLOMAX 0.4 MG PO (12:32)
[2023-12-24] MEDS: STERILE WATER FOR INJECTION 10 ML IV (12:33)
[2023-12-24] MEDS: MAXIPIME 1000 MG IV (12:33)
--- NOTE | 2023-12-24 12:35 | W.PN.HOSP.TC ---
Today's Communication/Plan
-
cont Abx
HD today - tolerating well - further mgmt as per nephro
Assessment / Plan
Assessment / Plan
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
the skin, HTN, HLD, Hx of alcohol abuse, RA with Raynaud, elevated PSA, recently discharged from [facility] in [facility], where he was managed for R hip Fx and b/l LE cellulitis as well as worsening on RLE wound, started on Ciprofloxacin by
, then sent to [facility] rehab. Had blood test done in rehab showing worsening of his kidney function, so he was sent to the hospital. Also found hyponatremia. Started on HD via non-tunneled catheter with expectation for eventual kidney
function recovery and continued on Abx for LE vascular wounds
A/P:
#LISANDRO 2/2 most likely AIN
#hyponatremias
#hyperkalemia
nephrology mgmt: initiate HD
s/p 3% saline on 12/20/23
Serial BMP - target sodium increase by 6-8meq per 24h
Cr upon d/c from [facility] in Nov was 1.75
#b/l le cellulitis with venous stasis wounds, L worse then R
#Pyoderma gangrenosum ruled out
Was growing MRSA and pseudomonas in [facility] and planned to continue on Cipro upon d/c
As per conversation with - plan was to clear the infection before further attempted R hip VERNON
Will start renally dosed Cefepime for previous cellulitis, if HD initiated - increase dosage to 1g q24h, check wound Cx. ID follows - Vanco added. Initially was on Cipro -12/18/23
Podiatry eval
wound care
Stopped Remicade in Feb 2024
Biopsy x2 in [facility] concluded that LE wounds due to vascular insufficiency
#Acute on chronic anemia 2/2 chronic blood loss via LE wounds and LISANDRO
Epo as per Nephro
follow HGb
No SANDIP, folate or B12 deficiency found
#BPH
now with Elizabeth
#HLD
cont rosuvastatin eventually
#R hip Fx
previously post-OP
#RA with Raynaud
cont outpatient mgmt upon d/c
#Chronic microcytic anemia
#PVD s/p balloon angio
#Neuropathy
cont home meds when possible
#b/l LE skin CA
follows in [facility]
DVT ppx hep
FUll code
I have spent at least 39min reviewing chart, test results, communication with consultants and direcct patient care
Anticipated Discharge: > 48 hours
Subjective/Interval History
-
Date of Service: December 24, 2023
Objective Data
-
Labs:
Laboratory Results
12/24/23
04:14
WBC 10.1
Hgb 8.3 L
Hct 24.6 L
Plt Count 174
Sodium 132 L
Potassium 3.8
Chloride 95 L
Carbon Dioxide 27
BUN 18
Creatinine 4.5 H*
Glucose 93
Calcium 8.6
Total Bilirubin 0.1 L
AST 38
ALT 17
Alkaline Phosphatase 96
Vital Signs:
Vital Signs
Temp Pulse Resp BP Pulse Ox
97.6 F 67 12 138/56 97
12/24/23 07:10 12/24/23 08:45 12/24/23 08:45 12/24/23 08:45 12/24/23 08:45
I&O
12/23/23 12/24/23 12/25/23
06:59 06:59 06:59
Intake Total 680 / 680 540 / 540
Output Total 950 / 950 625 / 625
Balance -270 / -270 -85 / -85
Review of Systems
-
History Source: Patient
All other systems: Reviewed and negative
Physical Exam
-
General: No Apparent Distress
HEENT: Normocephalic
Respiratory: Clear to Auscultation
GI: Soft, Nontender and Nondistended
Musculoskeletal: No Clubbing, No Cyanosis and No Edema
Neuro: Awake, Alert, Oriented and AO x 3
Psych: Calm
[2023-12-24] MEDS: NEURONTIN 100 MG PO ×3 (12:36→22:18)
[2023-12-24] MEDS: HEPARIN 5000 UNITS SC ×2 (12:36→20:52)
[2023-12-24] MEDS: HYDROPHOR 1 APPLIC TOPICAL ×2 (12:37→20:54)
[2023-12-24] MEDS: ULTRAVATE 0.05% 1 APPLIC TOPICAL ×2 (12:37→20:52)
[2023-12-24] MEDS: FERRLECIT 110 MG IV (13:55)
[2023-12-24] MEDS: VANCOCIN HCL 500 MG 100 IV (15:02)
[2023-12-24] MEDS: CRESTOR 40 MG PO (20:52)
[2023-12-24] MEDS: DESENEX/MITRAZOL/ZEASORB 1 APPLIC TOPICAL (23:20)
[2023-12-25] VITALS (7 sets, daily range): BP systolic 111–144; BP diastolic 54–73; BMI 23.4; BMI 21.3
--- NOTE | 2023-12-25 00:05 | PTCARENOTE ---
Assumed care for patient overnight, received report from daysannette RN. Pt is AAOx3 slightly forgetful at times. Pt no longer has the goldsmith catheter, bladder scanned pt for 205 ml. Normal sinus on tele with first degree heart block. Respirations even
and unlabored, diminished when auscultating. Right non tunneled cath dressing clean, dry, and intact. Bathed the patient with CHG cloths. Changed bilateral leg dressings. Cleaned the wounds and redressed (see wound care worklist intervention). Legs
floating on regular pillows. Placed a foam on the coccyx. Pt turned and receptive to turning interventions. Pt denies any pain at this time. Pt appears to be resting comfortably in bed, call loredo is within reach.
[2023-12-25] MEDS: ULTRAM 50 MG PO ×2 (04:41→19:15)
[2023-12-25 04:45] LABS: % Basophils 0.6 % (0-2); % Eosinophils 10.6 % (0-6); % Immature Granulocytes 0.4 % (0-0.5); % Lymphocytes 25.5 % (20.5-51.1); % Monocytes 12.3 % (1.7-9.3); % Neutrophils 50.6 % (42.2-75.2); Absolute Basophils 0.1 10^3/uL (0-0.2); Absolute Eosinophils 1.3 10^3/uL (0-0.7); Absolute Immature Granulocytes 0.1 10^3/uL (0-0.05); Absolute Lymphocytes 3.2 10^3/uL (1.2-3.4); Absolute Monocytes 1.5 10^3/uL (0.1-0.6); Absolute Neutrophils 6.3 10^3/uL (1.4-6.5); Hematocrit 25.2 % (39.0-52.0); Hemoglobin 8.4 g/dL (13.0-18.0); Mean Corp Hgb Conc. 33.3 g/dL (33.0-37.0); Mean Corpuscular Hgb 24.3 pg (27.0-31.0); Nucleated Red Blood Cells % 0 % (-); Platelet Count 151 10^3/uL (130-400); Red Blood Cell Count 3.45 10^6/uL (4.70-6.10); Red Cell Dist. Width 17.3 % (11.5-14.5); White Blood Cell Count 12.5 10^3/uL (4.8-10.8)
[2023-12-25 05:17] LABS: ALT (SGPT) 19 U/L (0-50); AST (SGOT) 38 U/L (17-59); Albumin 3.1 g/dl (3.5-5.0); Alkaline Phosphatase 97 U/L (38-126); Blood Urea Nitrogen 13 mg/dl (9-20); Calcium 8.8 mg/dl (8.4-10.2); Carbon Dioxide 27 mmol/L (22-30); Chloride 96 mmol/L (98-107); Estimated Creatinine Clearance 26 ml/min; Glucose 103 mg/dl (70-99); Potassium 3.4 mmol/L (3.5-5.1); Sodium 133 mmol/L (135-145); Total Bilirubin 0.2 mg/dl (0.2-1.3); Total Protein 5.4 g/dl (6.3-8.2); eGFR 20.32
[2023-12-25 05:38] LABS: Vancomycin Random 15.2 ug/ml
[2023-12-25] MEDS: KCL 40 MEQ PO (06:28)
[2023-12-25] MEDS: TYLENOL 650 MG PO (06:41)
[2023-12-25 07:04] LABS: Magnesium 1.9 mg/dl (1.6-2.3)
[2023-12-25] MEDS: FLOMAX 0.4 MG PO (08:44)
[2023-12-25] MEDS: HYDROPHOR 1 APPLIC TOPICAL ×2 (08:44→21:27)
[2023-12-25] MEDS: NEURONTIN 100 MG PO ×3 (08:44→21:25)
[2023-12-25] MEDS: THERAGRAN 1 TABLET PO (08:44)
[2023-12-25] MEDS: OCUVITE SOFTGEL 1 CAP PO (08:44)
[2023-12-25] MEDS: VITAMIN C 500 MG PO (08:44)
[2023-12-25] MEDS: HEPARIN 5000 UNITS SC ×2 (08:45→21:25)
--- NOTE | 2023-12-25 09:49 | W.PN.NEPH.PH ---
Today's Communication / Plan
-
HD tomorrow
Assessment/Plan
-
IMp:
Acute renal failure unclear etiology
Hyperkalemia
Asymptomatic hyponatremia/Hx chronic hyponatremia
Right hip fracture femoral neck with displaced status post ORIF early November 2023
Prior alcohol abuse-stopped November 13, 2023
Microcytic anemia
HTN�benign
Left lower extremity cellulitis chronic ulcerations dx 01/2023 /Hx pyoderma gangrenosum BX 2019
PVD-recent angioplasty left superficial femoral artery stenosis 09/02/2022
Hx Large right lower extremity ulceration with tendon visualization/increased peripheral edema RLE
History Left lower extremity ulcerations-Status post debridement and skin grafting of both lower extremities June 2023 at [facility]
Hx RA-Was on Remicade with last infusion February 2023
History of squamous cell CA bilateral legs 2019 treated at [facility]
BPH/elevated PSA Hx
HLD
Raynaud's bilateral hands
Plan:
HD tomorrow
hopefully he is beginning to recover renal function
follow BMP
replete K today
FR continues
-
-
Date of Service: December 25, 2023
CC / HPI / ROS
-
Chief Complaint:
LISANDRO
History of Present Illness:
Cr down to 3.1
s/p HD monday, no issues
Hemodynamically stable
K low 3.4
Na stable 133
Review of Systems:
Nonoliguric via Elizabeth
No fever
No chest pain or shortness of breath
Labs
-
Labs:
WBC 12.5 10^3/uL (4.8-10.8) H 12/25/23 04:34
RBC 3.45 10^6/uL (4.70-6.10) L 12/25/23 04:34
Hgb 8.4 g/dL (13.0-18.0) L 12/25/23 04:34
Hct 25.2 % (39.0-52.0) L 12/25/23 04:34
Plt Count 151 10^3/uL (130-400) 12/25/23 04:34
Sodium 133 mmol/L (135-145) L 12/25/23 04:34
Potassium 3.4 mmol/L (3.5-5.1) L 12/25/23 04:34
Chloride 96 mmol/L (98-107) L 12/25/23 04:34
Carbon Dioxide 27 mmol/L (22-30) 12/25/23 04:34
BUN 13 mg/dl (9-20) 12/25/23 04:34
Creatinine 3.1 mg/dL (0.7-1.3) H 12/25/23 04:34
eGFR 20.32 12/25/23 04:34
Glucose 103 mg/dl (70-99) H 12/25/23 04:34
Calcium 8.8 mg/dl (8.4-10.2) 12/25/23 04:34
Albumin 3.1 g/dl (3.5-5.0) L 12/25/23 04:34
Physical Exam
-
Vital Signs:
Vital Signs
Temp Pulse Resp BP Pulse Ox
97.6 F 63 12 129/54 97
12/25/23 07:10 12/25/23 06:00 12/25/23 06:00 12/25/23 04:00 12/25/23 06:00
Cardiovascular:: Regular rate and rhythm
Respiratory:: Bilateral: Coarse
Lung Excursion:: Normal
Abdomen:: Nontender and Soft
Bowel Sounds:: Normal
Extremity Edema:: None: Bilateral:
--- NOTE | 2023-12-25 10:34 | PHA.VAN.FU ---
Vancomycin Assessment / Plan
- Assessment
Hemodialysis Schedule: Other (HD for LISANDRO, daily x3 days, next HD planned for 12/25)
Last Hemodialysis performed: Sun 12/23
WBC's are: Trending Up
In the past 24 hrs, patient has been: Afebrile
Concomitant Antimicrobials: cefepime
- Assessment - Therapeutic Drug Monitoring
Random Level: 15.2 - drawn ~13.5H after previous dose of 500mg
- Dosing Plan
Dosing by Level: Hold off on dosing today
- Monitoring Plan
Random Level: 12/25 06
Level today appropriate to re-dose with HD tomorrow
However, will repeat level tomorrow to assess how much patient is clearing vancomycin outside of HD
- Follow Up
Pharmacy will continue to follow.
Vancomycin Follow UP
- -
Patient Age: 73
Patient Sex: Male
Vancomycin Day #: 5
Indication: Skin And Soft Tissue
Requesting Provider: Dr. Duran
Pertinent Antimicrobial Allergies:
no pertinent antimicrobial allergies
Height / Weight:
Height 6 ft 4 in
Actual Weight 87.3 kg
- Vital Signs / Lab Results
Temp Pulse Resp BP Pulse Ox
97.6 F 59 10 142/69 98
12/25/23 07:10 12/25/23 10:00 12/25/23 10:00 12/25/23 08:00 12/25/23 10:03
Lab Results - Hematology
12/23/23 12/24/23 12/25/23
05:34 04:14 04:34
WBC 8.6 10.1 12.5 H
Lab Results - Chemistry
12/23/23 12/24/23 12/25/23
05:34 04:14 04:34
BUN 33 H 18 13
Creatinine 6.5 H* 4.5 H* 3.1 H
Estimated Creat Clear 12 18 26
Albumin 2.7 L 3.1 L 3.1 L
Microbiology Results
12/21/23 11:18 Wound Culture - Final
Leg - Left Gram Stain - Final
Therapeutic Drug Monitoring
Random Vancomycin 15.2 ug/ml 12/25/23 04:34
--- NOTE | 2023-12-25 10:48 | W.PN.HOSP.TC ---
Addendum entered and electronically signed by Elmer Holbrook MD 12/25/23 12:33:
Elizabeth removed on 12/24/23 - had to have straight cath overnight. RN to watch for retention with bladder scan
Original Note:
Today's Communication/Plan
-
cont Abx as per ID
HD tomorrow and then follow Cr off Hd as per nephro
repleted potassium by nephro
VascSx and Ortho consults
Assessment / Plan
Assessment / Plan
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 (results sent by public health nutritionist) , Hx of L heel wound skin graftin in 07/11, b/l LE squamous cell carcinoma of
the skin, HTN, HLD, Hx of alcohol abuse, RA with Raynaud, elevated PSA, recently discharged from [facility] in [facility], where he was managed for R hip Fx and b/l LE cellulitis as well as worsening on RLE wound, started on Ciprofloxacin by
, then sent to [facility] rehab. Had blood test done in rehab showing worsening of his kidney function, so he was sent to the hospital. Also found hyponatremia. Started on HD via non-tunneled catheter with expectation for eventual kidney
function recovery and continued on Abx for LE vascular wounds
A/P:
#LISANDRO 2/2 most likely AIN
#hyponatremias
#hyperkalemia
nephrology mgmt: initiate HD
s/p 3% saline on 12/20/23
Serial BMP - target sodium increase by 6-8meq per 24h
Cr upon d/c from [facility] in Nov was 1.75
#b/l le cellulitis with venous stasis wounds, L worse then R
#Pyoderma gangrenosum ruled out
Was growing MRSA and pseudomonas in [facility] and planned to continue on Cipro upon d/c
As per conversation with - plan was to clear the infection before further attempted R hip VERNON
Will start renally dosed Cefepime for previous cellulitis, if HD initiated - increase dosage to 1g q24h, check wound Cx. ID follows - Janetto added. Initially was on Cipro -12/18/23
Podiatry eval
wound care
Stopped Remicade in Feb 2024
Biopsy x2 in [facility] concluded that LE wounds due to vascular insufficiency
#Acute on chronic anemia 2/2 chronic blood loss via LE wounds and LISANDRO
Epo as per Nephro
follow HGb
No SANDIP, folate or B12 deficiency found
#BPH
now with Elizabeth
#HLD
cont rosuvastatin eventually
#R hip Fx
previously post-OP after temporary ball placement
Planned for eventual VERNON, when LE cellulitis improves
Patient would like second opinion on - ortho consult
#RA with Raynaud
cont outpatient mgmt upon d/c
#Chronic microcytic anemia
#PVD s/p balloon angio
#Neuropathy
cont home meds when possible
VascSX consult
US for DVT pending
#b/l LE skin CA
follows in [facility]
DVT ppx hep
FUll code
I have spent at least 39min reviewing chart, test results, communication with consultants and direcct patient care
Anticipated Discharge: > 48 hours
Subjective/Interval History
-
Date of Service: December 25, 2023
Objective Data
-
Labs:
Laboratory Results
12/25/23
04:34
WBC 12.5 H
Hgb 8.4 L
Hct 25.2 L
Plt Count 151
Sodium 133 L
Potassium 3.4 L
Chloride 96 L
Carbon Dioxide 27
BUN 13
Creatinine 3.1 H
Glucose 103 H
Calcium 8.8
Total Bilirubin 0.2
AST 38
ALT 19
Alkaline Phosphatase 97
Vital Signs:
Vital Signs
Temp Pulse Resp BP Pulse Ox
97.6 F 59 10 142/69 98
12/25/23 07:10 12/25/23 10:00 12/25/23 10:00 12/25/23 08:00 12/25/23 10:03
I&O
12/24/23 12/25/23 12/26/23
06:59 06:59 06:59
Intake Total 540 / 540 180 / 180
Output Total 625 / 625 750 / 750
Balance -85 / -85 -570 / -570
Review of Systems
-
History Source: Patient
All other systems: Reviewed and negative
Physical Exam
-
General: No Apparent Distress
HEENT: Normocephalic
Respiratory: Clear to Auscultation
Cardiac: Regular Rhythm
GI: Soft, Nontender and Nondistended
Musculoskeletal: Other
Skin: Warm and Other (b/l le wounds)
Neuro: Awake, Alert, Oriented and AO x 3
Psych: Calm
[2023-12-25] MEDS: STERILE WATER FOR INJECTION 10 ML IV (11:22)
[2023-12-25] MEDS: MAXIPIME 1000 MG IV (11:22)
--- NOTE | 2023-12-25 12:02 | W.PN.ID1 ---
Date of Service
Date of Service: December 25, 2023
Today's Communication
To complete 7 days of Vanco/cefepime tomorrow.
Assessment / Plan
# LLE wounds with acute drainage
# Chronic BLE extensive venous stasis wounds s/p I+D, skin grafts at [facility] Apr,May 2023
- Has been on prolonged abx outpt x 2 months
- Had been on cipro since 11/23 to 12/17. Of note 11/07/23 Wound cx few Pseudomonas with intermediate resistance to levofloxacin. Also heavy growth MRSA (R) doxy
- LLE drainage cx few mixed skin melly
- Continue Vancomycin (d#6 of 7) and cefepime (d#6 of 7)
- Continue wound care.
# LISANDRO unclear etiology
- On HD
# Additional Past Medical History:
HTN
HLD
alcohol abuse
Raynaud's to hands
RA, last received Remicade 02/2023
angioplasty left superficial femoral artery stenosis 09/02/[address] Elizabeth
PVD
chronic right lower extremity open ulcerations to muscle, chronic left lower extremity wounds all status post debridement with grafting at [facility]
(pyoderma gangrenosum ruled out by biopsies x2 at [facility]).
elevated PSA
squamous cell CA to bilateral lower legs treated at 2019
Right hip fracture s/p Girdlestone procedure 11/18/23
Facial Reconstruction
Vein Stripping
Chief Complaint
-: Cellulitis
Vital Signs / Physical Exam
Vital Signs
Vital Signs
Temp Pulse Resp BP Pulse Ox
97.6 F 59 10 142/69 98
12/25/23 07:10 12/25/23 10:00 12/25/23 10:00 12/25/23 08:00 12/25/23 10:03
Physical Exam
Constitutional: No Acute Distress and Comfortable
Pulmonary: Clear
Gastrointestinal: Soft, Non Tender and Non Distended
Extremities: Negative Edema
Wound: Other (BLE dressings dry)
Objective Data
Lab Data
Lab Results
12/25/23 04:34
12/25/23 04:34
PT 14.7 Sec (11.4-14.6) H 12/20/23 12:37
INR 1.14 12/20/23 12:37
Estimated Creat Clear 26 ml/min 12/25/23 04:34
Total Bilirubin 0.2 mg/dl (0.2-1.3) 12/25/23 04:34
AST 38 U/L (17-59) 12/25/23 04:34
ALT 19 U/L (0-50) 12/25/23 04:34
Alkaline Phosphatase 97 U/L (38-126) 12/25/23 04:34
Most recent labs reviewed.
Micro Results:
12/21/23 11:18 Wound Culture - Final
Leg - Left Gram Stain - Final
12/19/23 CXR: Small right pleural effusion. New.
12/19/23 Renal US: Unremarkable exam of the kidneys.
[2023-12-25] MEDS: FERRLECIT 110 MG IV (13:34)
--- NOTE | 2023-12-25 17:06 | W.PN.UPDATE ---
Update Note
Progress Note Update
As per discussion with Orthopedics - recommendation will be for the patient to return to his original orthopedist in [place], as his situation might be too complex to be managed in . Since no urgent intervention needed on R hip - will cancel consult
[2023-12-25] MEDS: CRESTOR 40 MG PO (21:25)
[2023-12-25] MEDS: ROXICODONE 5 MG PO (22:58)
[2023-12-26 03:00] VITALS: BP 121/49
[2023-12-26 05:38] LABS: % Basophils 0.5 % (0-2); % Immature Granulocytes 0.5 % (0-0.5); % Monocytes 10.9 % (1.7-9.3); % Neutrophils 52.1 % (42.2-75.2); Absolute Basophils 0.1 10^3/uL (0-0.2); Absolute Eosinophils 1.5 10^3/uL (0-0.7); Absolute Immature Granulocytes 0.1 10^3/uL (0-0.05); Absolute Monocytes 1.4 10^3/uL (0.1-0.6); Absolute Neutrophils 6.5 10^3/uL (1.4-6.5); Hematocrit 24.5 % (39.0-52.0); Hemoglobin 7.7 g/dL (13.0-18.0); Mean Corp Hgb Conc. 31.4 g/dL (33.0-37.0); Mean Corpuscular Hgb 23.5 pg (27.0-31.0); Mean Corpuscular Volume 74.9 fL (80.0-94.0); Mean Platelet Volume 8.6 fL (7.4-10.4); Nucleated Red Blood Cells % 0 % (-); Platelet Count 164 10^3/uL (130-400); Red Blood Cell Count 3.27 10^6/uL (4.70-6.10); Red Cell Dist. Width 17.5 % (11.5-14.5); White Blood Cell Count 12.4 10^3/uL (4.8-10.8)
[2023-12-26 05:57] VITALS: BMI 23.6
[2023-12-26 06:00] LABS: ALT (SGPT) 20 U/L (0-50); AST (SGOT) 42 U/L (17-59); Albumin 2.7 g/dl (3.5-5.0); Alkaline Phosphatase 87 U/L (38-126); Blood Urea Nitrogen 16 mg/dl (9-20); Calcium 8.5 mg/dl (8.4-10.2); Carbon Dioxide 28 mmol/L (22-30); Chloride 96 mmol/L (98-107); Estimated Creatinine Clearance 22 ml/min; Glucose 99 mg/dl (70-99); Potassium 3.8 mmol/L (3.5-5.1); Sodium 132 mmol/L (135-145); Total Bilirubin 0.1 mg/dl (0.2-1.3); Total Protein 5.1 g/dl (6.3-8.2); eGFR 16.43
[2023-12-26 07:00] VITALS: BP 143/70
[2023-12-26] MEDS: HYDROPHOR 1 APPLIC TOPICAL ×2 (08:00→20:16)
[2023-12-26] MEDS: NEURONTIN 100 MG PO ×3 (08:04→22:05)
[2023-12-26] MEDS: HEPARIN 5000 UNITS SC ×2 (08:04→20:14)
[2023-12-26] MEDS: THERAGRAN 1 TABLET PO (08:04)
[2023-12-26] MEDS: VITAMIN C 500 MG PO (08:04)
[2023-12-26] MEDS: FLOMAX 0.4 MG PO (08:04)
[2023-12-26] MEDS: OCUVITE SOFTGEL 1 CAP PO (08:04)
--- NOTE | 2023-12-26 08:18 | PHA.VAN.FU ---
Addendum entered and electronically signed by Chitra Vivas RPH 12/26/23 16:24:
Note: level today is available as a scanned in report from [facility] as internal vancomycin reagent
Addendum entered and electronically signed by Chitra Vivas RPH 12/26/23 16:22:
Level today = 14.2 - drawn ~24.5H after previous level of 15.2
Patient's half-life in between HD sessions = 249.7 (calculated from 2 levels without a dose or HD in between)
Original Note:
Vancomycin Assessment / Plan
- Assessment
Hemodialysis Schedule: Other (HD for LISANDRO, daily x3 days, next HD planned for 12/25)
WBC's are: Stable
In the past 24 hrs, patient has been: Afebrile
Concomitant Antimicrobials: cefepime
- Dosing Plan
Dosing by Level: Re-dose today (Vanc 500mg)
Pre-HD level for today not currently available - reagent and level sent to [facility] - won't be available until this afternoon
Will re-dose patient today based on yesterday's level (level today was to assess clearance off HD)
- Monitoring Plan
No level(s) ordered at this time: consider repeat level prior to next HD, if vanc continued
- Follow Up
Pharmacy will continue to follow.
Vancomycin Follow UP
- -
Patient Age: 73
Patient Sex: Male
Vancomycin Day #: 6
Indication: Skin And Soft Tissue
Requesting Provider: Dr. Duran
Pertinent Antimicrobial Allergies:
no pertinent antimicrobial allergies
Height / Weight:
Height 6 ft 4 in
Actual Weight 87.952 kg
- Vital Signs / Lab Results
Temp Pulse Resp BP Pulse Ox
97.9 F 63 18 121/49 97
12/26/23 03:00 12/26/23 03:00 12/26/23 03:00 12/26/23 03:00 12/26/23 03:00
Lab Results - Hematology
12/24/23 12/25/23 12/26/23
04:14 04:34 05:05
WBC 10.1 12.5 H 12.4 H
12/26/23
06:00
WBC Cancelled
Lab Results - Chemistry
12/24/23 12/25/23 12/26/23
04:14 04:34 05:05
BUN 18 13 16
Creatinine 4.5 H* 3.1 H 3.7 H
Estimated Creat Clear 18 26 22
Albumin 3.1 L 3.1 L 2.7 L
Therapeutic Drug Monitoring
Random Vancomycin Cancelled 12/26/23 05:05
[2023-12-26 11:15] VITALS: BP 170/79; PULSE 72
[2023-12-26 11:17] VITALS: BP 170/79
[2023-12-26] MEDS: HEPARIN 500 UNITS IV ×2 (12:05→13:05)
--- NOTE | 2023-12-26 12:18 | W.PN.NEPH.HD ---
Assessment
-
Seen on HD> no complaints VSS access temp CVC
Progress Note - Hemodialysis
-
Date of Service: December 26, 2023
Duration: 30 minutes and 3 hours
Potassium Bath: 3
Calcium Bath: 2.5
Opti-Dialyzer: 160
Ultrafiltration: Other (0)
Blood Flow: 400
Dialysate Flow: 600
Heparin: 500x2
EPO: no
--- NOTE | 2023-12-26 12:30 | PTCARENOTE ---
12/25- Noon dose of Maxepime to be administered S/P Dialysis, as per canal driver. Vanco dose administered by canal driver.
[2023-12-26] MEDS: FLEXBUMIN 25% FOR HEMODIALYSIS 12.5 GRAMS IV (12:45)
[2023-12-26] MEDS: MANNITOL 25% 12.5 GRAMS IV (12:46)
--- NOTE | 2023-12-26 13:54 | W.PN.ID1 ---
Date of Service
Date of Service: December 26, 2023
Today's Communication
Last day of Vancomycin (d#7 of 7) and cefepime (d#7 of 7).
ID will sign off.
Assessment / Plan
# LLE wounds with acute drainage, improved
# Chronic BLE extensive venous stasis wounds s/p I+D, skin grafts at [facility] Apr,May 2023
- Had been on prolonged abx outpt x 2 months
- Had been on cipro since 11/23 to 12/17. Of note 11/07/23 Wound cx few Pseudomonas with intermediate resistance to levofloxacin. Also heavy growth MRSA (R) doxy
- LLE drainage cx only few mixed skin melly
- Last day of Vancomycin (d#7 of 7) and cefepime (d#7 of 7)
- Continue wound care.
- Follow-up with Wound Care at [place].
# LISANDRO unclear etiology
- On HD
ID will sign off.
# Additional Past Medical History:
HTN
HLD
alcohol abuse
Raynaud's to hands
RA, last received Remicade 02/2023
angioplasty left superficial femoral artery stenosis 09/02/[address] Elizabeth
PVD
chronic right lower extremity open ulcerations to muscle, chronic left lower extremity wounds all status post debridement with grafting at [facility] 2023
(pyoderma gangrenosum ruled out by biopsies x2 at [facility]).
elevated PSA
squamous cell CA to bilateral lower legs treated at [facility] 2019
Right hip fracture s/p Girdlestone procedure 11/18/23
Facial Reconstruction
Vein Stripping
Chief Complaint
-: Cellulitis
Subjective / Review of Systems
Tolerating HD.
Vital Signs / Physical Exam
Vital Signs
Vital Signs
Temp Pulse Resp BP Pulse Ox
97.8 F 64 18 143/70 97
12/26/23 07:00 12/26/23 07:00 12/26/23 07:00 12/26/23 07:00 12/26/23 07:00
Physical Exam
Constitutional: No Acute Distress and Comfortable
Gastrointestinal: Soft, Non Tender and Non Distended
Wound: Other (BLE dressings dry)
Objective Data
Lab Data
Lab Results
12/26/23 06:00
12/26/23 05:05
PT 14.7 Sec (11.4-14.6) H 12/20/23 12:37
INR 1.14 12/20/23 12:37
Estimated Creat Clear 22 ml/min 12/26/23 05:05
Total Bilirubin 0.1 mg/dl (0.2-1.3) L 12/26/23 05:05
AST 42 U/L (17-59) 12/26/23 05:05
ALT 20 U/L (0-50) 12/26/23 05:05
Alkaline Phosphatase 87 U/L (38-126) 12/26/23 05:05
Most recent labs reviewed.
Micro Results:
12/21/23 11:18 Wound Culture - Final
Leg - Left Gram Stain - Final
12/19/23 CXR: Small right pleural effusion. New.
12/19/23 Renal US: Unremarkable exam of the kidneys.
[2023-12-26] MEDS: VANCOCIN HCL 500 MG 100 IV (14:46)
--- NOTE | 2023-12-26 14:55 | CM ---
Patient seen bedside with friends, discussed discharge plan for short term rehab, unknown at this time if patient will require outpatient dialysis. CM discussed SNF that provide dialysis, patients first choice [facility]. CM will continue to
follow for all discharge planning needs.
Plan; SNF, watch for HD needs, when stable.
[2023-12-26 15:00] VITALS: BP 144/67
[2023-12-26] MEDS: HEPARIN 2500 UNITS INTRACATH (15:28)
--- NOTE | 2023-12-26 16:00 | W.PN.HOSP.TC ---
Today's Communication/Plan
-
Completed antibiotics.
HD as per schedule
Case management consultation for outpatient HD set up
Assessment / Plan
Assessment / Plan
73yo M with PMHx of PVD, chronic c/l LE wounds 2/2 vascular insufficiency, pathology ruled out pyoderma gangrenosum on two biopsies in [facility] (results sent by control tower radio operator) , Hx of L heel wound skin graftin in 07/11, b/l LE squamous cell carcinoma of
the skin, HTN, HLD, Hx of alcohol abuse, RA with Raynaud, elevated PSA, recently discharged from [facility] in [facility], where he was managed for R hip Fx and b/l LE cellulitis as well as worsening on RLE wound, started on Ciprofloxacin by
, then sent to [facility] rehab. Had blood test done in rehab showing worsening of his kidney function, so he was sent to the hospital. Also found hyponatremia. Started on HD via non-tunneled catheter with expectation for eventual kidney
function recovery and continued on Abx for LE vascular wounds
Impression:
Acute renal failure unknown etiology
Hyperkalemic
Symptomatic hyponatremia.
Other conditions:
Right hip fracture femoral neck with displaced status post IRF early November 2023.
Spacer and placement
Chronic lower extremity wounds
PAD with recent angioplasty left superficial femoral artery stenosis 09/09
RA previously on Remicade last infusion 03/11
BPH.
Dyslipidemia.
Alcohol use disorder stopped October 2023.
Chronic microcytic anemia
Benign hypertension.
Plan:
#LISANDRO 2/2 most likely AIN
#hyponatremias
#hyperkalemia
nephrology mgmt: initiate HD
s/p 3% saline on 12/20/23
Serial BMP - target sodium increase by 6-8meq per 24h
#b/l le cellulitis with venous stasis wounds, L worse then R
#Pyoderma gangrenosum ruled out
Was growing MRSA and pseudomonas in [facility] and planned to continue on Cipro upon d/c
As per conversation with - plan was to clear the infection before further attempted R hip VERNON
Will start renally dosed Cefepime for previous cellulitis, if HD initiated - increase dosage to 1g q24h, check wound Cx. ID follows - Vanco added. Initially was on Cipro -12/18/23
Podiatry eval
wound care
Stopped Remicade in Feb 2024
Biopsy x2 in [facility] concluded that LE wounds due to vascular insufficiency
#Acute on chronic anemia 2/2 chronic blood loss via LE wounds and LISANDRO
Epo as per Nephro
follow [facility]
No SANDIP, folate or B12 deficiency found
#BPH
now with Elizabeth
#HLD
cont rosuvastatin eventually
#R hip Fx
previously post-OP after temporary ball placement
Planned for eventual VERNON, when LE cellulitis improves
Patient would like second opinion on DH - ortho consult
#RA with Raynaud
cont outpatient mgmt upon d/c
#Chronic microcytic anemia
#PVD s/p balloon angio
#Neuropathy
cont home meds when possible
VascSX consult
US for DVT pending
#b/l LE skin CA
follows in [facility]
DVT ppx hep
FUll code
Anticipated Discharge: 24 - 48 hours
Subjective/Interval History
-
Date of Service: December 26, 2023
Objective Data
-
Labs:
Laboratory Results
12/26/23
05:05
WBC 12.4 H
Hgb 7.7 L
Hct 24.5 L
Plt Count 164
Sodium 132 L
Potassium 3.8
Chloride 96 L
Carbon Dioxide 28
BUN 16
Creatinine 3.7 H
Glucose 99
Calcium 8.5
Total Bilirubin 0.1 L
AST 42
ALT 20
Alkaline Phosphatase 87
Vital Signs:
Vital Signs
Temp Pulse Resp BP Pulse Ox
97.9 F 75 18 144/67 97
12/26/23 15:00 12/26/23 15:00 12/26/23 15:00 12/26/23 15:00 12/26/23 15:00
I&O
12/25/23 12/26/23 12/27/23
06:59 06:59 06:59
Intake Total 180 / 180 590 / 590
Output Total 750 / 750 550 / 550
Balance -570 / -570 40 / 40
Physical Exam
-
General: No Apparent Distress
HEENT: Normocephalic
Respiratory: Clear to Auscultation
Cardiac: Regular Rhythm
GI: Soft, Nontender and Nondistended
Musculoskeletal: Other
Skin: Warm and Other (b/l le wounds)
Neuro: Awake, Alert, Oriented and AO x 3
Psych: Calm
[2023-12-26] MEDS: MAXIPIME 1000 MG IV (16:23)
[2023-12-26] MEDS: STERILE WATER FOR INJECTION 10 ML IV (16:23)
[2023-12-26] MEDS: ULTRAVATE 0.05% 1 APPLIC TOPICAL (16:24)
[2023-12-26 19:40] VITALS: BP 152/66
[2023-12-26] MEDS: CRESTOR 40 MG PO (20:14)
[2023-12-27] VITALS (7 sets, daily range): BP systolic 121–159; BP diastolic 59–68; O2SAT 98; BMI 23.4
[2023-12-27] MEDS: VITAMIN C 500 MG PO (09:09)
[2023-12-27] MEDS: NEURONTIN 100 MG PO ×3 (09:09→22:17)
[2023-12-27] MEDS: FLOMAX 0.4 MG PO (09:10)
[2023-12-27] MEDS: OCUVITE SOFTGEL 1 CAP PO (09:10)
[2023-12-27] MEDS: THERAGRAN 1 TABLET PO (09:10)
[2023-12-27] MEDS: HEPARIN 5000 UNITS SC ×2 (09:11→20:02)
[2023-12-27] MEDS: ULTRAVATE 0.05% 1 APPLIC TOPICAL (09:14)
[2023-12-27] MEDS: HYDROPHOR 1 APPLIC TOPICAL ×2 (09:15→20:02)
--- NOTE | 2023-12-27 09:49 | W.PN.NEPH.PH ---
Today's Communication / Plan
-
HD tomorrow
follow cr
Assessment/Plan
-
IMp:
Acute renal failure unclear etiology
Hyperkalemia
Asymptomatic hyponatremia/Hx chronic hyponatremia
Right hip fracture femoral neck with displaced status post ORIF early November 2023
Prior alcohol abuse-stopped November 13, 2023
Microcytic anemia
HTN�benign
Left lower extremity cellulitis chronic ulcerations dx 01/2023 /Hx pyoderma gangrenosum BX 2019
PVD-recent angioplasty left superficial femoral artery stenosis 09/02/2022
Hx Large right lower extremity ulceration with tendon visualization/increased peripheral edema RLE
History Left lower extremity ulcerations-Status post debridement and skin grafting of both lower extremities June 2023 at [facility]
Hx RA-Was on Remicade with last infusion February 2023
History of squamous cell CA bilateral legs 2019 treated at [facility]
BPH/elevated PSA Hx
HLD
Raynaud's bilateral hands
Plan:
monitor pre HD cr
so far no renal recovery yet though non oliguric
If still need HD likely need to change to tunneled catheter
plan HD tomorrow
BP sable
-
-
Date of Service: December 27, 2023
CC / HPI / ROS
-
Chief Complaint:
LISANDRO
History of Present Illness:
no labs today
s/p HD yesterday
Hemodynamically stable
non oliguric with out goldsmith
Review of Systems:
No fever
No chest pain or shortness of breath
feels well
Labs
-
Labs:
WBC Cancelled 12/26/23 06:00
RBC Cancelled 12/26/23 06:00
Hgb Cancelled 12/26/23 06:00
Hct Cancelled 12/26/23 06:00
Plt Count Cancelled 12/26/23 06:00
Sodium 132 mmol/L (135-145) L 12/26/23 05:05
Potassium 3.8 mmol/L (3.5-5.1) 12/26/23 05:05
Chloride 96 mmol/L (98-107) L 12/26/23 05:05
Carbon Dioxide 28 mmol/L (22-30) 12/26/23 05:05
BUN 16 mg/dl (9-20) 12/26/23 05:05
Creatinine 3.7 mg/dL (0.7-1.3) H 12/26/23 05:05
eGFR 16.43 12/26/23 05:05
Glucose 99 mg/dl (70-99) 12/26/23 05:05
Calcium 8.5 mg/dl (8.4-10.2) 12/26/23 05:05
Albumin 2.7 g/dl (3.5-5.0) L 12/26/23 05:05
Physical Exam
-
Vital Signs:
Vital Signs
Temp Pulse Resp BP Pulse Ox
97.8 F 69 14 139/65 98
12/27/23 07:34 12/27/23 07:34 12/27/23 07:34 12/27/23 07:34 12/27/23 07:34
Cardiovascular:: Regular rate and rhythm
Respiratory:: Bilateral: CTA
Lung Excursion:: Normal
Abdomen:: Nontender and Soft
Extremity Edema:: None: Bilateral:
Goldsmith Catheter: No
--- NOTE | 2023-12-27 16:11 | W.PN.HOSP.TC ---
Today's Communication/Plan
-
Hemodialysis as per nephrology.
Physical therapy
Discharge planing
Assessment / Plan
Assessment / Plan
73yo M with PMHx of PVD, chronic c/l LE wounds 2/2 vascular insufficiency, pathology ruled out pyoderma gangrenosum on two biopsies in [facility] (results sent by leather etcher) , Hx of L heel wound skin graftin in 07/11, b/l LE squamous cell carcinoma of
the skin, HTN, HLD, Hx of alcohol abuse, RA with Raynaud, elevated PSA, recently discharged from [facility] in [facility], where he was managed for R hip Fx and b/l LE cellulitis as well as worsening on RLE wound, started on Ciprofloxacin by
, then sent to [facility] rehab. Had blood test done in rehab showing worsening of his kidney function, so he was sent to the hospital. Also found hyponatremia. Started on HD via non-tunneled catheter with expectation for eventual kidney
function recovery and continued on Abx for LE vascular wounds
Impression:
Acute renal failure unknown etiology
Hyperkalemic
Symptomatic hyponatremia.
Other conditions:
Right hip fracture femoral neck with displaced status post IRF early November 2023.
Spacer and placement
Chronic lower extremity wounds
PAD with recent angioplasty left superficial femoral artery stenosis 09/09
RA previously on Remicade last infusion 03/11
BPH.
Dyslipidemia.
Alcohol use disorder stopped October 2023.
Chronic microcytic anemia
Benign hypertension.
Plan:
#LISANDRO 2/2 most likely AIN
#hyponatremias
#hyperkalemia
nephrology mgmt: initiate HD
s/p 3% saline on 12/20/23
Serial BMP - target sodium increase by 6-8meq per 24h
#b/l le cellulitis with venous stasis wounds, L worse then R
#Pyoderma gangrenosum ruled out
Was growing MRSA and pseudomonas in [facility] and planned to continue on Cipro upon d/c
As per conversation with - plan was to clear the infection before further attempted R hip VERNON
Will start renally dosed Cefepime for previous cellulitis, if HD initiated - increase dosage to 1g q24h, check wound Cx. ID follows - Vanco added. Initially was on Cipro -12/18/23
Podiatry eval
wound care
Stopped Remicade in Feb 2024
Biopsy x2 in [facility] concluded that LE wounds due to vascular insufficiency
#Acute on chronic anemia 2/2 chronic blood loss via LE wounds and LISANDRO
Epo as per Nephro
follow [facility]
No SANDIP, folate or B12 deficiency found
#BPH
now with Elizabeth
#HLD
cont rosuvastatin eventually
#R hip Fx
previously post-OP after temporary ball placement
Planned for eventual VERNON, when LE cellulitis improves
Patient would like second opinion on DH - ortho consult
#RA with Raynaud
cont outpatient mgmt upon d/c
#Chronic microcytic anemia
#PVD s/p balloon angio
#Neuropathy
cont home meds when possible
VascSX consult
US for DVT pending
#b/l LE skin CA
follows in [facility]
DVT ppx hep
FUll code
Anticipated Discharge: 24 - 48 hours
Subjective/Interval History
-
Date of Service: December 27, 2023
Objective Data
-
Vital Signs:
Vital Signs
Temp Pulse Resp BP Pulse Ox
98.6 F 65 17 121/61 100
12/27/23 15:17 12/27/23 15:17 12/27/23 15:17 12/27/23 15:17 12/27/23 15:17
I&O
12/26/23 12/27/23 12/28/23
06:59 06:59 06:59
Intake Total 590 / 590 960 / 960
Output Total 550 / 550 1300 / 1300
Balance 40 / 40 -340 / -340
Physical Exam
-
General: No Apparent Distress
HEENT: Normocephalic
Respiratory: Clear to Auscultation
Cardiac: Regular Rhythm
GI: Soft, Nontender and Nondistended
Musculoskeletal: Other
Skin: Warm and Other (b/l le wounds)
Neuro: Awake, Alert, Oriented and AO x 3
Psych: Calm
[2023-12-27] MEDS: CRESTOR 40 MG PO (20:02)
[2023-12-27] MEDS: ULTRAM 50 MG PO (20:05)
[2023-12-28] MEDS: ROXICODONE 5 MG PO (00:29)
[2023-12-28 06:00] VITALS: BMI 24.0
[2023-12-28 07:50] VITALS: BP 146/63
[2023-12-28 08:36] LABS: Hematocrit 24.4 % (39.0-52.0); Hemoglobin 7.8 g/dL (13.0-18.0); Mean Corpuscular Hgb 24.7 pg (27.0-31.0); Mean Corpuscular Volume 77.2 fL (80.0-94.0); Mean Platelet Volume 9.3 fL (7.4-10.4); Platelet Count 142 10^3/uL (130-400); Red Blood Cell Count 3.16 10^6/uL (4.70-6.10); White Blood Cell Count 11.5 10^3/uL (4.8-10.8)
[2023-12-28 09:01] LABS: Blood Urea Nitrogen 15 mg/dl (9-20); Calcium 9.2 mg/dl (8.4-10.2); Carbon Dioxide 30 mmol/L (22-30); Chloride 97 mmol/L (98-107); Estimated Creatinine Clearance 27 ml/min; Glucose 108 mg/dl (70-99); Potassium 3.3 mmol/L (3.5-5.1); Sodium 134 mmol/L (135-145); eGFR 21.13
[2023-12-28] MEDS: HEPARIN 500 UNITS IV ×2 (09:01→09:05)
[2023-12-28] MEDS: RETACRIT 10000 UNITS IV (09:02)
--- NOTE | 2023-12-28 11:38 | W.PN.NEPH.HD ---
Assessment
-
pt seen during HD
vitals stable
non oliguric and no UF
seem cr is better, follow labs
may be recovering kidney function
temp HD catheter functions fine
Progress Note - Hemodialysis
-
Date of Service: December 28, 2023
Duration: 30 minutes and 3 hours
Potassium Bath: 4
Calcium Bath: 2.5
Opti-Dialyzer: 160
Ultrafiltration: Other (0)
Blood Flow: 400
Dialysate Flow: 600
Heparin: yesx2
EPO: [id number]
[2023-12-28] MEDS: FLOMAX 0.4 MG PO (11:47)
[2023-12-28] MEDS: NEURONTIN 100 MG PO ×3 (11:47→21:07)
[2023-12-28] MEDS: HEPARIN 5000 UNITS SC ×2 (11:47→19:41)
[2023-12-28] MEDS: VITAMIN C 500 MG PO (11:47)
[2023-12-28] MEDS: THERAGRAN 1 TABLET PO (11:47)
[2023-12-28] MEDS: OCUVITE SOFTGEL 1 CAP PO (11:47)
[2023-12-28] MEDS: ULTRAVATE 0.05% 1 APPLIC TOPICAL (11:52)
[2023-12-28] MEDS: HYDROPHOR 1 APPLIC TOPICAL ×2 (11:53→19:41)
[2023-12-28] MEDS: HEPARIN 2200 UNITS INTRACATH (11:56)
[2023-12-28] MEDS: ULTRAM 50 MG PO (12:32)
[2023-12-28 15:55] VITALS: BP 146/65
--- NOTE | 2023-12-28 15:57 | CM ---
Patient seen bedside, discussed waiting to determine if patient will need dialysis upon discharge to SNF. Referral sent to [facility] for SNF/HD. CM will continue to follow for all discharge planning needs.
Plan; SNF, pending HD.
--- NOTE | 2023-12-28 17:26 | W.PN.HOSP.TC ---
Today's Communication/Plan
-
Not oliguric
Improving creatinine while on HD
Plan is to monitor renal function while off dialysis over the next 48 to 72 hours.
Assessment / Plan
Assessment / Plan
73yo M with PMHx of PVD, chronic c/l LE wounds 2/2 vascular insufficiency, pathology ruled out pyoderma gangrenosum on two biopsies in [facility] (results sent by hospital staff pharmacist) , Hx of L heel wound skin graftin in 07/11, b/l LE squamous cell carcinoma of
the skin, HTN, HLD, Hx of alcohol abuse, RA with Raynaud, elevated PSA, recently discharged from [facility] in [facility], where he was managed for R hip Fx and b/l LE cellulitis as well as worsening on RLE wound, started on Ciprofloxacin by
, then sent to [facility] rehab. Had blood test done in rehab showing worsening of his kidney function, so he was sent to the hospital. Also found hyponatremia. Started on HD via non-tunneled catheter with expectation for eventual kidney
function recovery and continued on Abx for LE vascular wounds
Impression:
Acute renal failure unknown etiology
Hyperkalemic
Symptomatic hyponatremia.
Other conditions:
Right hip fracture femoral neck with displaced status post IRF early November 2023.
Spacer and placement
Chronic lower extremity wounds
PAD with recent angioplasty left superficial femoral artery stenosis 09/09
RA previously on Remicade last infusion 03/11
BPH.
Dyslipidemia.
Alcohol use disorder stopped October 2023.
Chronic microcytic anemia
Benign hypertension.
Plan:
#LISANDRO 2/2 most likely AIN
#hyponatremias
#hyperkalemia
nephrology mgmt: initiate HD
s/p 3% saline on 12/20/23
Serial BMP - target sodium increase by 6-8meq per 24h
#b/l le cellulitis with venous stasis wounds, L worse then R
#Pyoderma gangrenosum ruled out
Was growing MRSA and pseudomonas in [facility] and planned to continue on Cipro upon d/c
As per conversation with - plan was to clear the infection before further attempted R hip VERNON
Will start renally dosed Cefepime for previous cellulitis, if HD initiated - increase dosage to 1g q24h, check wound Cx. ID follows - Vanco added. Initially was on Cipro -12/18/23
Podiatry eval
wound care
Stopped Remicade in Feb 2024
Biopsy x2 in [facility] concluded that LE wounds due to vascular insufficiency
#Acute on chronic anemia 2/2 chronic blood loss via LE wounds and LISANDRO
Epo as per Nephro
follow [facility]
No SANDIP, folate or B12 deficiency found
#BPH
now with Elizabeth
#HLD
cont rosuvastatin eventually
#R hip Fx
previously post-OP after temporary ball placement
Planned for eventual VERNON, when LE cellulitis improves
Patient would like second opinion on DH - ortho consult
#RA with Raynaud
cont outpatient mgmt upon d/c
#Chronic microcytic anemia
#PVD s/p balloon angio
#Neuropathy
cont home meds when possible
VascSX consult
US for DVT pending
#b/l LE skin CA
follows in [facility]
DVT ppx hep
FUll code
Anticipated Discharge: > 48 hours
Subjective/Interval History
-
Date of Service: December 28, 2023
Objective Data
-
Labs:
Laboratory Results
12/28/23
08:20
WBC 11.5 H
Hgb 7.8 L
Hct 24.4 L
Plt Count 142
Sodium 134 L
Potassium 3.3 L
Chloride 97 L
Carbon Dioxide 30
BUN 15
Creatinine 3.0 H
Glucose 108 H
Calcium 9.2
Vital Signs:
Vital Signs
Temp Pulse Resp BP Pulse Ox
99.1 F 70 17 146/65 99
12/28/23 15:55 12/28/23 15:55 12/28/23 15:55 12/28/23 15:55 12/28/23 15:55
I&O
12/27/23 12/28/23 12/29/23
06:59 06:59 06:59
Intake Total 960 / 960 480 / 480
Output Total 1300 / 1300 1550 / 1550
Balance -340 / -340 -1070 / -1070
Physical Exam
-
General: No Apparent Distress
HEENT: Normocephalic
Respiratory: Clear to Auscultation
Cardiac: Regular Rhythm
GI: Soft, Nontender and Nondistended
Musculoskeletal: Other
Skin: Warm and Other (b/l le wounds)
Neuro: Awake, Alert, Oriented and AO x 3
Psych: Calm
[2023-12-28] MEDS: CRESTOR 40 MG PO (19:40)
[2023-12-28 23:09] VITALS: BP 128/60
[2023-12-29 06:00] VITALS: BMI 23.8
[2023-12-29 07:00] VITALS: BP 143/63
[2023-12-29 08:20] LABS: Blood Urea Nitrogen 10 mg/dl (9-20); Calcium 8.6 mg/dl (8.4-10.2); Carbon Dioxide 29 mmol/L (22-30); Chloride 98 mmol/L (98-107); Estimated Creatinine Clearance 36 ml/min; Glucose 94 mg/dl (70-99); Potassium 3.5 mmol/L (3.5-5.1); Sodium 135 mmol/L (135-145); eGFR 30.66
[2023-12-29] MEDS: FLOMAX 0.4 MG PO (09:15)
[2023-12-29] MEDS: NEURONTIN 100 MG PO ×3 (09:15→21:42)
[2023-12-29] MEDS: OCUVITE SOFTGEL PO ×2 (09:15→09:22)
[2023-12-29] MEDS: HEPARIN 5000 UNITS SC ×2 (09:16→20:55)
[2023-12-29] MEDS: THERAGRAN 1 TABLET PO (09:16)
[2023-12-29] MEDS: HYDROPHOR 1 APPLIC TOPICAL ×2 (09:17→21:43)
[2023-12-29] MEDS: VITAMIN C 500 MG PO (09:17)
[2023-12-29] MEDS: ULTRAVATE 0.05% 1 APPLIC TOPICAL (09:19)
--- NOTE | 2023-12-29 12:50 | W.PN.NEPH.PH ---
Today's Communication / Plan
-
follow BMP
Assessment/Plan
-
IMp:
Acute renal failure unclear etiology
Hyperkalemia
Asymptomatic hyponatremia/Hx chronic hyponatremia
Right hip fracture femoral neck with displaced status post ORIF early November 2023
Prior alcohol abuse-stopped November 13, 2023
Microcytic anemia
HTN�benign
Left lower extremity cellulitis chronic ulcerations dx 01/2023 /Hx pyoderma gangrenosum BX 2019
PVD-recent angioplasty left superficial femoral artery stenosis 09/02/2022
Hx Large right lower extremity ulceration with tendon visualization/increased peripheral edema RLE
History Left lower extremity ulcerations-Status post debridement and skin grafting of both lower extremities June 2023 at [facility]
Hx RA-Was on Remicade with last infusion February 2023
History of squamous cell CA bilateral legs 2019 treated at [facility]
BPH/elevated PSA Hx
HLD
Raynaud's bilateral hands
Plan:
no HD over weekend.
follow BMP trend
-
-
Date of Service: December 29, 2023
CC / HPI / ROS
-
Chief Complaint:
LISANDRO
History of Present Illness:
s/p HD yesterday
Cr 2.2
Hemodynamically stable
nonoliguric without goldsmith
Review of Systems:
No fever
No chest pain or shortness of breath
feels well
Labs
-
Labs:
WBC 11.5 10^3/uL (4.8-10.8) H 12/28/23 08:20
RBC 3.16 10^6/uL (4.70-6.10) L 12/28/23 08:20
Hgb 7.8 g/dL (13.0-18.0) L 12/28/23 08:20
Hct 24.4 % (39.0-52.0) L 12/28/23 08:20
Plt Count 142 10^3/uL (130-400) 12/28/23 08:20
Sodium 135 mmol/L (135-145) 12/29/23 07:33
Potassium 3.5 mmol/L (3.5-5.1) 12/29/23 07:33
Chloride 98 mmol/L (98-107) 12/29/23 07:33
Carbon Dioxide 29 mmol/L (22-30) 12/29/23 07:33
BUN 10 mg/dl (9-20) 12/29/23 07:33
Creatinine 2.2 mg/dL (0.7-1.3) H 12/29/23 07:33
eGFR 30.66 12/29/23 07:33
Glucose 94 mg/dl (70-99) 12/29/23 07:33
Calcium 8.6 mg/dl (8.4-10.2) 12/29/23 07:33
Albumin 2.7 g/dl (3.5-5.0) L 12/26/23 05:05
Physical Exam
-
Vital Signs:
Vital Signs
Temp Pulse Resp BP Pulse Ox
98.3 F 68 16 143/63 97
12/29/23 07:00 12/29/23 07:00 12/29/23 07:00 12/29/23 07:00 12/29/23 07:00
Cardiovascular:: Regular rate and rhythm
Respiratory:: Bilateral: CTA
Lung Excursion:: Normal
Abdomen:: Nontender and Soft
Bowel Sounds:: Normal
Extremity Edema:: None: Bilateral:
[2023-12-29 15:00] VITALS: BP 100/55
--- NOTE | 2023-12-29 15:31 | W.PN.HOSP.TC ---
Today's Communication/Plan
-
Observe renal function following BMP.
Completed antibiotic course
Physical therapy
Assessment / Plan
Assessment / Plan
73yo M with PMHx of PVD, chronic c/l LE wounds 2/2 vascular insufficiency, pathology ruled out pyoderma gangrenosum on two biopsies in [facility] (results sent by medicine worker) , Hx of L heel wound skin graftin in 07/11, b/l LE squamous cell carcinoma of
the skin, HTN, HLD, Hx of alcohol abuse, RA with Raynaud, elevated PSA, recently discharged from [facility] in [facility], where he was managed for R hip Fx and b/l LE cellulitis as well as worsening on RLE wound, started on Ciprofloxacin by
, then sent to [facility] rehab. Had blood test done in rehab showing worsening of his kidney function, so he was sent to the hospital. Also found hyponatremia. Started on HD via non-tunneled catheter with expectation for eventual kidney
function recovery and continued on Abx for LE vascular wounds
Impression:
Acute renal failure unknown etiology
Hyperkalemic
Symptomatic hyponatremia.
Other conditions:
Right hip fracture femoral neck with displaced status post IRF early November 2023.
Spacer and placement
Chronic lower extremity wounds
PAD with recent angioplasty left superficial femoral artery stenosis 09/09
RA previously on Remicade last infusion 03/11
BPH.
Dyslipidemia.
Alcohol use disorder stopped October 2023.
Chronic microcytic anemia
Benign hypertension.
Plan:
#LISANDRO 2/2 most likely AIN
#hyponatremias
#hyperkalemia
nephrology mgmt: initiate HD
s/p 3% saline on 12/20/23
Serial BMP - target sodium increase by 6-8meq per 24h
#b/l le cellulitis with venous stasis wounds, L worse then R
#Pyoderma gangrenosum ruled out
Was growing MRSA and pseudomonas in [facility] and planned to continue on Cipro upon d/c
As per conversation with - plan was to clear the infection before further attempted R hip VERNON
Will start renally dosed Cefepime for previous cellulitis, if HD initiated - increase dosage to 1g q24h, check wound Cx. ID follows - Janetto added. Initially was on Cipro -12/18/23
Podiatry eval
wound care
Stopped Remicade in Feb 2024
Biopsy x2 in [facility] concluded that LE wounds due to vascular insufficiency
#Acute on chronic anemia 2/2 chronic blood loss via LE wounds and LISANDRO
Epo as per Nephro
follow HGb
No SANDIP, folate or B12 deficiency found
#BPH
now with Elizabeth
#HLD
cont rosuvastatin eventually
#R hip Fx
previously post-OP after temporary ball placement
Planned for eventual VERNON, when LE cellulitis improves
Patient would like second opinion on DH - ortho consult
#RA with Raynaud
cont outpatient mgmt upon d/c
#Chronic microcytic anemia
#PVD s/p balloon angio
#Neuropathy
cont home meds when possible
VascSX consult
US for DVT pending
#b/l LE skin CA
follows in [facility]
DVT ppx hep
FUll code
Anticipated Discharge: 24 - 48 hours
Subjective/Interval History
-
Date of Service: December 29, 2023
Objective Data
-
Labs:
Laboratory Results
12/29/23
07:33
Sodium 135
Potassium 3.5
Chloride 98
Carbon Dioxide 29
BUN 10
Creatinine 2.2 H
Glucose 94
Calcium 8.6
Vital Signs:
Vital Signs
Temp Pulse Resp BP Pulse Ox
98.3 F 68 16 143/63 97
12/29/23 07:00 12/29/23 07:00 12/29/23 07:00 12/29/23 07:00 12/29/23 07:00
I&O
12/28/23 12/29/23 12/30/23
06:59 06:59 06:59
Intake Total 480 / 480
Output Total 1550 / 1550 650 / 650
Balance -1070 / -1070 -650 / -650
Physical Exam
-
General: No Apparent Distress
HEENT: Normocephalic
Respiratory: Clear to Auscultation
Cardiac: Regular Rhythm
GI: Soft, Nontender and Nondistended
Musculoskeletal: Other
Skin: Warm and Other (b/l le wounds)
Neuro: Awake, Alert, Oriented and AO x 3
Psych: Calm
--- NOTE | 2023-12-29 15:46 | CM ---
CM reviewed chart, per Nephrology, no HD over weekend. CM met with patient bedside, patient hopeful for no outpatient HD need. CM will continue to follow for all discharge planning needs.
Plan; SNF vs SNF with HD.
[2023-12-29] MEDS: CRESTOR 40 MG PO (20:55)
[2023-12-29 23:19] VITALS: BP 144/74
[2023-12-30 06:00] VITALS: BMI 23.6
[2023-12-30 07:00] VITALS: BP 141/72
[2023-12-30] MEDS: HEPARIN 5000 UNITS SC ×2 (08:53→21:27)
[2023-12-30] MEDS: NEURONTIN 100 MG PO ×3 (08:54→21:27)
[2023-12-30] MEDS: VITAMIN C 500 MG PO (08:54)
[2023-12-30] MEDS: THERAGRAN 1 TABLET PO (08:54)
[2023-12-30] MEDS: FLOMAX 0.4 MG PO (08:54)
[2023-12-30] MEDS: OCUVITE SOFTGEL PO (08:55)
[2023-12-30] MEDS: HYDROPHOR 1 APPLIC TOPICAL (08:56)
[2023-12-30] MEDS: ULTRAVATE 0.05% 1 APPLIC TOPICAL (08:56)
--- NOTE | 2023-12-30 11:09 | W.PN.NEPH.PH ---
Today's Communication / Plan
-
await labs
Assessment/Plan
-
IMp:
Acute renal failure unclear etiology
Hyperkalemia
Asymptomatic hyponatremia/Hx chronic hyponatremia
Right hip fracture femoral neck with displaced status post ORIF early November 2023
Prior alcohol abuse-stopped November 13, 2023
Microcytic anemia
HTN�benign
Left lower extremity cellulitis chronic ulcerations dx 01/2023 /Hx pyoderma gangrenosum BX 2019
PVD-recent angioplasty left superficial femoral artery stenosis 09/02/2022
Hx Large right lower extremity ulceration with tendon visualization/increased peripheral edema RLE
History Left lower extremity ulcerations-Status post debridement and skin grafting of both lower extremities June 2023 at [facility]
Hx RA-Was on Remicade with last infusion February 2023
History of squamous cell CA bilateral legs 2019 treated at [facility]
BPH/elevated PSA Hx
HLD
Raynaud's bilateral hands
Plan:
no HD over weekend.
follow BMP trend
likely done with HD
-
-
Date of Service: December 30, 2023
CC / HPI / ROS
-
Chief Complaint:
LISANDRO
History of Present Illness:
s/p HD 12/27
Cr 2.2 yesterday
Hemodynamically stable
nonoliguric without goldsmith
Review of Systems:
No fever
No chest pain or shortness of breath
feels well
Labs
-
Labs:
eGFR 30.66 12/29/23 07:33
Albumin 2.7 g/dl (3.5-5.0) L 12/26/23 05:05
Physical Exam
-
Vital Signs:
Vital Signs
Temp Pulse Resp BP Pulse Ox
97.8 F 72 16 141/72 97
12/30/23 07:00 12/30/23 07:00 12/30/23 07:00 12/30/23 07:00 12/30/23 07:00
Cardiovascular:: Regular rate and rhythm
Respiratory:: Bilateral: Coarse
Lung Excursion:: Normal
Abdomen:: Nontender and Soft
Bowel Sounds:: Normal
Extremity Edema:: None: Bilateral:
[2023-12-30] MEDS: ROXICODONE 5 MG PO ×2 (11:15→23:23)
--- NOTE | 2023-12-30 14:03 | W.PN.HOSP.TC ---
Today's Communication/Plan
-
F/u BMP off HD
Assessment / Plan
Assessment / Plan
73yo M with PMHx of PVD, chronic c/l LE wounds 2/2 vascular insufficiency, pathology ruled out pyoderma gangrenosum on two biopsies in [facility] (results sent by cable assembler and swager) , Hx of L heel wound skin graftin in 07/11, b/l LE squamous cell carcinoma of
the skin, HTN, HLD, Hx of alcohol abuse, RA with Raynaud, elevated PSA, recently discharged from [facility] in [facility], where he was managed for R hip Fx and b/l LE cellulitis as well as worsening on RLE wound, started on Ciprofloxacin by
, then sent to [facility] rehab. Had blood test done in rehab showing worsening of his kidney function, so he was sent to the hospital. Also found hyponatremia. Started on HD via non-tunneled catheter with expectation for eventual kidney
function recovery and continued on Abx for LE vascular wounds
Impression:
Acute renal failure unknown etiology
Hyperkalemic
Symptomatic hyponatremia.
Other conditions:
Right hip fracture femoral neck with displaced status post IRF early November 2023.
Spacer and placement
Chronic lower extremity wounds
PAD with recent angioplasty left superficial femoral artery stenosis 09/09
RA previously on Remicade last infusion 03/11
BPH.
Dyslipidemia.
Alcohol use disorder stopped October 2023.
Chronic microcytic anemia
Benign hypertension.
Plan:
#LISANDRO 2/2 most likely AIN
#hyponatremias
#hyperkalemia
nephrology mgmt: initiate HD
s/p 3% saline on 12/20/23
Serial BMP - target sodium increase by 6-8meq per 24h
#b/l le cellulitis with venous stasis wounds, L worse then R
#Pyoderma gangrenosum ruled out
Was growing MRSA and pseudomonas in [facility] and planned to continue on Cipro upon d/c
As per conversation with - plan was to clear the infection before further attempted R hip VERNON
Will start renally dosed Cefepime for previous cellulitis, if HD initiated - increase dosage to 1g q24h, check wound Cx. ID follows - Janetto added. Initially was on Cipro -12/18/23
Podiatry eval
wound care
Stopped Remicade in Feb 2024
Biopsy x2 in [facility] concluded that LE wounds due to vascular insufficiency
#Acute on chronic anemia 2/2 chronic blood loss via LE wounds and LISANDRO
Epo as per Nephro
follow HGb
No SANDIP, folate or B12 deficiency found
#BPH
now with Elizabeth
#HLD
cont rosuvastatin eventually
#R hip Fx
previously post-OP after temporary ball placement
Planned for eventual VERNON, when LE cellulitis improves
Patient would like second opinion on - ortho consult
#RA with Raynaud
cont outpatient mgmt upon d/c
#Chronic microcytic anemia
#PVD s/p balloon angio
#Neuropathy
cont home meds when possible
VascSX consult: Patient wishes to f/u at [facility] with his team there regarding wounds
US for DVT pending
#b/l LE skin CA
follows in [facility]
DVT ppx hep
FUll code
Update 12/29: F/u BMP off HD
Anticipated Discharge: 24 - 48 hours
Subjective/Interval History
-
Date of Service: December 30, 2023
No acute events
Objective Data
-
Vital Signs:
Vital Signs
Temp Pulse Resp BP Pulse Ox
97.8 F 72 16 141/72 97
12/30/23 07:00 12/30/23 07:00 12/30/23 07:00 12/30/23 07:00 12/30/23 07:00
I&O
12/29/23 12/30/23 12/31/23
06:59 06:59 06:59
Intake Total 1680 / 1680
Output Total 650 / 650 950 / 950
Balance -650 / -650 730 / 730
Review of Systems
-
History Source: Patient
All other systems: Reviewed and negative
Data Reviewed
-
Diagnostic Radiology: Image personally visualized and interpreted and Report Reviewed by me
Ultrasound: Report Reviewed by me
Medical Tests (Nuc Med, Echo etc): Report Reviewed by me
Labs: Labs Reviewed by me
[2023-12-30 15:00] VITALS: BP 121/89
[2023-12-30 15:49] LABS: Blood Urea Nitrogen 13 mg/dl (9-20); Calcium 9.1 mg/dl (8.4-10.2); Carbon Dioxide 31 mmol/L (22-30); Chloride 97 mmol/L (98-107); Estimated Creatinine Clearance 31 ml/min; Glucose 123 mg/dl (70-99); Potassium 3.5 mmol/L (3.5-5.1); Sodium 136 mmol/L (135-145); eGFR 25.09
[2023-12-30] MEDS: CRESTOR 40 MG PO (21:27)
[2023-12-30] MEDS: HYDROPHOR TOPICAL (21:28)
[2023-12-30 23:41] VITALS: BP 153/69
[2023-12-31] MEDS: ULTRAM 50 MG PO (01:26)
[2023-12-31 07:25] VITALS: BP 116/54
[2023-12-31] MEDS: NEURONTIN 100 MG PO ×3 (08:39→21:21)
[2023-12-31] MEDS: FLOMAX 0.4 MG PO (08:39)
[2023-12-31] MEDS: VITAMIN C 500 MG PO (08:40)
[2023-12-31] MEDS: THERAGRAN 1 TABLET PO (08:40)
[2023-12-31] MEDS: HEPARIN 5000 UNITS SC ×2 (08:41→20:23)
[2023-12-31] MEDS: HYDROPHOR 1 APPLIC TOPICAL ×2 (08:41→20:25)
[2023-12-31] MEDS: OCUVITE SOFTGEL PO (08:41)
[2023-12-31] MEDS: ULTRAVATE 0.05% 1 APPLIC TOPICAL (08:42)
--- NOTE | 2023-12-31 11:44 | W.PN.NEPH.PH ---
Today's Communication / Plan
-
await labs
Assessment/Plan
-
IMp:
Acute renal failure unclear etiology
Hyperkalemia
Asymptomatic hyponatremia/Hx chronic hyponatremia
Right hip fracture femoral neck with displaced status post ORIF early November 2023
Prior alcohol abuse-stopped November 13, 2023
Microcytic anemia
HTN�benign
Left lower extremity cellulitis chronic ulcerations dx 01/2023 /Hx pyoderma gangrenosum BX 2019
PVD-recent angioplasty left superficial femoral artery stenosis 09/02/2022
Hx Large right lower extremity ulceration with tendon visualization/increased peripheral edema RLE
History Left lower extremity ulcerations-Status post debridement and skin grafting of both lower extremities June 2023 at [facility]
Hx RA-Was on Remicade with last infusion February 2023
History of squamous cell CA bilateral legs 2019 treated at [facility]
BPH/elevated PSA Hx
HLD
Raynaud's bilateral hands
Plan:
no HD over weekend.
follow BMP trend
likely done with HD
await BMP, could use CVC blue lumen for blood draw if needed
-
-
Date of Service: December 31, 2023
CC / HPI / ROS
-
Chief Complaint:
LISANDRO
History of Present Illness:
s/p HD 12/27
Cr 2.6 yesterday
Hemodynamically stable
nonoliguric without goldsmith
Review of Systems:
No fever
No chest pain or shortness of breath
feels well
Labs
-
Labs:
eGFR 25.09 12/30/23 15:17
Albumin 2.7 g/dl (3.5-5.0) L 12/26/23 05:05
Physical Exam
-
Vital Signs:
Vital Signs
Temp Pulse Resp BP Pulse Ox
98.4 F 88 16 116/54 96
12/31/23 07:25 12/31/23 07:25 12/31/23 07:25 12/31/23 07:25 12/31/23 07:25
Cardiovascular:: Regular rate and rhythm
Respiratory:: Bilateral: CTA
Lung Excursion:: Normal
Abdomen:: Nontender and Soft
Bowel Sounds:: Normal
Extremity Edema:: None: Bilateral:
[2023-12-31 13:32] LABS: Blood Urea Nitrogen 15 mg/dl (9-20); Calcium 9.1 mg/dl (8.4-10.2); Carbon Dioxide 26 mmol/L (22-30); Chloride 98 mmol/L (98-107); Estimated Creatinine Clearance 33 ml/min; Glucose 143 mg/dl (70-99); Potassium 3.1 mmol/L (3.5-5.1); Sodium 135 mmol/L (135-145); eGFR 27.62
[2023-12-31 13:34] LABS: % Basophils 0.6 % (0-2); % Eosinophils 7.9 % (0-6); % Immature Granulocytes 0.1 % (0-0.5); % Lymphocytes 21.8 % (20.5-51.1); % Monocytes 8.6 % (1.7-9.3); Absolute Basophils 0.1 10^3/uL (0-0.2); Absolute Eosinophils 0.7 10^3/uL (0-0.7); Absolute Lymphocytes 1.9 10^3/uL (1.2-3.4); Absolute Monocytes 0.8 10^3/uL (0.1-0.6); Absolute Neutrophils 5.3 10^3/uL (1.4-6.5); Hematocrit 26.1 % (39.0-52.0); Hemoglobin 8.9 g/dL (13.0-18.0); Mean Corp Hgb Conc. 34.1 g/dL (33.0-37.0); Mean Corpuscular Hgb 25.4 pg (27.0-31.0); Mean Corpuscular Volume 74.6 fL (80.0-94.0); Nucleated Red Blood Cells % 0 % (-); Red Cell Dist. Width 18.7 % (11.5-14.5); White Blood Cell Count 8.7 10^3/uL (4.8-10.8)
[2023-12-31] MEDS: KCL 40 MEQ PO (15:19)
--- NOTE | 2023-12-31 15:28 | W.PN.HOSP.TC ---
Today's Communication/Plan
-
K repletion
monitor bmp
Assessment / Plan
Assessment / Plan
73yo M with PMHx of PVD, chronic c/l LE wounds 2/2 vascular insufficiency, pathology ruled out pyoderma gangrenosum on two biopsies in [facility] (results sent by clinical transformation specialist) , Hx of L heel wound skin graftin in 07/11, b/l LE squamous cell carcinoma of
the skin, HTN, HLD, Hx of alcohol abuse, RA with Raynaud, elevated PSA, recently discharged from [facility] in [facility], where he was managed for R hip Fx and b/l LE cellulitis as well as worsening on RLE wound, started on Ciprofloxacin by
, then sent to [facility] rehab. Had blood test done in rehab showing worsening of his kidney function, so he was sent to the hospital. Also found hyponatremia. Started on HD via non-tunneled catheter with expectation for eventual kidney
function recovery and continued on Abx for LE vascular wounds
Impression:
Acute renal failure unknown etiology
Hyperkalemic
Symptomatic hyponatremia.
Other conditions:
Right hip fracture femoral neck with displaced status post IRF early November 2023.
Spacer and placement
Chronic lower extremity wounds
PAD with recent angioplasty left superficial femoral artery stenosis 09/09
RA previously on Remicade last infusion 03/11
BPH.
Dyslipidemia.
Alcohol use disorder stopped October 2023.
Chronic microcytic anemia
Benign hypertension.
Plan:
#LISANDRO 2/2 most likely AIN
#hyponatremias
#hyperkalemia
nephrology mgmt: initiate HD
s/p 3% saline on 12/20/23
Serial BMP - target sodium increase by 6-8meq per 24h
#b/l le cellulitis with venous stasis wounds, L worse then R
#Pyoderma gangrenosum ruled out
Was growing MRSA and pseudomonas in [facility] and planned to continue on Cipro upon d/c
As per conversation with - plan was to clear the infection before further attempted R hip VERNON
Will start renally dosed Cefepime for previous cellulitis, if HD initiated - increase dosage to 1g q24h, check wound Cx. ID follows - Janetto added. Initially was on Cipro -12/18/23
Podiatry eval
wound care
Stopped Remicade in Feb 2024
Biopsy x2 in [facility] concluded that LE wounds due to vascular insufficiency
#Acute on chronic anemia 2/2 chronic blood loss via LE wounds and LISANDRO
Epo as per Nephro
follow HGb
No SANDIP, folate or B12 deficiency found
#BPH
now with Elizabeth
#HLD
cont rosuvastatin eventually
#R hip Fx
previously post-OP after temporary ball placement
Planned for eventual VERNON, when LE cellulitis improves
Patient would like second opinion on DH - ortho consult
#RA with Raynaud
cont outpatient mgmt upon d/c
#Chronic microcytic anemia
#PVD s/p balloon angio
#Neuropathy
cont home meds when possible
VascSX consult: Patient wishes to f/u at [facility] with his team there regarding wounds
US for DVT pending
#Hypokalemia- monitor replete
#b/l LE skin CA
follows in [facility]
DVT ppx hep
FUll code
Update 12/29 and 12/30: F/u BMP off HD
Anticipated Discharge: Within 24 hours
Subjective/Interval History
-
Date of Service: December 31, 2023
No acute events
Objective Data
-
Labs:
Laboratory Results
12/31/23
12:30
WBC 8.7
Hgb 8.9 L
Hct 26.1 L
Plt Count
Sodium 135
Potassium 3.1 L
Chloride 98
Carbon Dioxide 26
BUN 15
Creatinine 2.4 H
Glucose 143 H
Calcium 9.1
Vital Signs:
Vital Signs
Temp Pulse Resp BP Pulse Ox
98.4 F 88 16 116/54 96
12/31/23 07:25 12/31/23 07:25 12/31/23 07:25 12/31/23 07:25 12/31/23 07:25
I&O
12/30/23 12/31/23 01/01/24
06:59 06:59 06:59
Intake Total 1680 / 1680 1320 / 1320
Output Total 950 / 950 1050 / 1050
Balance 730 / 730 270 / 270
Review of Systems
-
History Source: Patient
All other systems: Reviewed and negative
Data Reviewed
-
Diagnostic Radiology: Image personally visualized and interpreted and Report Reviewed by me
Ultrasound: Report Reviewed by me
Medical Tests (Nuc Med, Echo etc): Report Reviewed by me
Labs: Labs Reviewed by me
[2023-12-31 15:30] VITALS: BP 157/68
[2023-12-31] MEDS: CRESTOR 40 MG PO (20:24)
[2023-12-31] MEDS: KCL 20 MEQ PO (21:21)
[2023-12-31] MEDS: ROXICODONE 5 MG PO (22:50)
[2023-12-31 23:32] VITALS: BP 140/69
[2024-01-01] MEDS: ULTRAM 50 MG PO ×2 (02:46→08:56)
[2024-01-01] MEDS: ROXICODONE 5 MG PO (04:58)
[2024-01-01 06:00] VITALS: BMI 23.7
[2024-01-01 07:56] VITALS: BP 146/72
[2024-01-01] MEDS: OCUVITE SOFTGEL PO (08:26)
[2024-01-01] MEDS: NEURONTIN 100 MG PO ×3 (08:27→21:33)
[2024-01-01] MEDS: HEPARIN 5000 UNITS SC ×2 (08:27→20:13)
[2024-01-01] MEDS: VITAMIN C 500 MG PO (08:27)
[2024-01-01] MEDS: FLOMAX 0.4 MG PO (08:27)
[2024-01-01] MEDS: THERAGRAN 1 TABLET PO (08:28)
[2024-01-01] MEDS: ULTRAVATE 0.05% TOPICAL (08:28)
[2024-01-01] MEDS: HYDROPHOR 1 APPLIC TOPICAL ×2 (08:28→20:14)
[2024-01-01 08:49] LABS: Blood Urea Nitrogen 15 mg/dl (9-20); Calcium 8.9 mg/dl (8.4-10.2); Carbon Dioxide 28 mmol/L (22-30); Chloride 99 mmol/L (98-107); Estimated Creatinine Clearance 35 ml/min; Glucose 95 mg/dl (70-99); Potassium 3.4 mmol/L (3.5-5.1); Sodium 137 mmol/L (135-145); eGFR 29.07
[2024-01-01 09:46] LABS: % Basophils 0.5 % (0-2); % Eosinophils 7.6 % (0-6); % Immature Granulocytes 0.2 % (0-0.5); % Lymphocytes 30.8 % (20.5-51.1); % Monocytes 11.2 % (1.7-9.3); % Neutrophils 49.7 % (42.2-75.2); Absolute Basophils 0.1 10^3/uL (0-0.2); Absolute Eosinophils 0.7 10^3/uL (0-0.7); Absolute Monocytes 1.1 10^3/uL (0.1-0.6); Absolute Neutrophils 4.8 10^3/uL (1.4-6.5); Hematocrit 25.2 % (39.0-52.0); Hemoglobin 8.1 g/dL (13.0-18.0); Mean Corp Hgb Conc. 32.1 g/dL (33.0-37.0); Mean Corpuscular Hgb 24.2 pg (27.0-31.0); Mean Corpuscular Volume 75.2 fL (80.0-94.0); Nucleated Red Blood Cells % 0 % (-); Red Blood Cell Count 3.35 10^6/uL (4.70-6.10); Red Cell Dist. Width 18.9 % (11.5-14.5); White Blood Cell Count 9.6 10^3/uL (4.8-10.8)
--- NOTE | 2024-01-01 13:33 | W.PN.NEPH.PH ---
Today's Communication / Plan
-
Observe
Follow-up BMP
Assessment/Plan
-
IMp:
Acute renal failure unclear etiology
Hyperkalemia
Asymptomatic hyponatremia/Hx chronic hyponatremia
Right hip fracture femoral neck with displaced status post ORIF early November 2023
Prior alcohol abuse-stopped November 13, 2023
Microcytic anemia
HTN�benign
Left lower extremity cellulitis chronic ulcerations dx 01/2023 /Hx pyoderma gangrenosum BX 2019
PVD-recent angioplasty left superficial femoral artery stenosis 09/02/2022
Hx Large right lower extremity ulceration with tendon visualization/increased peripheral edema RLE
History Left lower extremity ulcerations-Status post debridement and skin grafting of both lower extremities June 2023 at [facility]
Hx RA-Was on Remicade with last infusion February 2023
History of squamous cell CA bilateral legs 2019 treated at [facility]
BPH/elevated PSA Hx
HLD
Raynaud's bilateral hands
Plan:
no HD over weekend.
creatinine down to 2.3 and non oliguric
follow BMP trend
likely done with HD
await BMP, could use CVC blue lumen for blood draw if needed
-
-
Date of Service: January 01, 2024
CC / HPI / ROS
-
Chief Complaint:
LISANDRO
History of Present Illness:
s/p HD 12/27
Down to 2.3
Hemodynamically stable
nonoliguric without goldsmith
Review of Systems:
No fever
Nonoliguric
No chest pain or shortness of breath
feels well
Labs
-
Labs:
WBC 9.6 10^3/uL (4.8-10.8) 01/01/24 07:44
RBC 3.35 10^6/uL (4.70-6.10) L 01/01/24 07:44
Hgb 8.1 g/dL (13.0-18.0) L 01/01/24 07:44
Hct 25.2 % (39.0-52.0) L 01/01/24 07:44
Plt Count 10^3/uL (130-400) 01/01/24 07:44
Sodium 137 mmol/L (135-145) 01/01/24 07:44
Potassium 3.4 mmol/L (3.5-5.1) L 01/01/24 07:44
Chloride 99 mmol/L (98-107) 01/01/24 07:44
Carbon Dioxide 28 mmol/L (22-30) 01/01/24 07:44
BUN 15 mg/dl (9-20) 01/01/24 07:44
Creatinine 2.3 mg/dL (0.7-1.3) H 01/01/24 07:44
eGFR 29.07 01/01/24 07:44
Glucose 95 mg/dl (70-99) 01/01/24 07:44
Calcium 8.9 mg/dl (8.4-10.2) 01/01/24 07:44
Albumin 2.7 g/dl (3.5-5.0) L 12/26/23 05:05
Physical Exam
-
Vital Signs:
Vital Signs
Temp Pulse Resp BP Pulse Ox
98.5 F 71 17 146/72 98
01/01/24 07:56 01/01/24 07:56 01/01/24 07:56 01/01/24 07:56 01/01/24 07:56
Cardiovascular:: Regular rate and rhythm
Respiratory:: Bilateral: CTA
Lung Excursion:: Normal
Abdomen:: Nontender and Soft
Bowel Sounds:: Normal
Extremity Edema:: None: Bilateral:
--- NOTE | 2024-01-01 15:00 | CM ---
CM reviewed with nurse and Engine Lathe Set Up Operator Tool, likely no need for outpatient HD. Patient seen bedside, discussed referrals for SNF versus SNF with HD. CM will place additional referrals in [facility]. CM will continue to follow for all discharge planning
needs.
Plan; SNF pending accepting facility, likely no HD needs.
[2024-01-01 15:15] VITALS: BP 132/60
--- NOTE | 2024-01-01 17:19 | W.PN.HOSP.TC ---
Today's Communication/Plan
-
Monitor renal function
Placement
Assessment / Plan
Assessment / Plan
73yo M with PMHx of PVD, chronic c/l LE wounds 2/2 vascular insufficiency, pathology ruled out pyoderma gangrenosum on two biopsies in [facility] (results sent by associate teacher) , Hx of L heel wound skin graftin in 07/11, b/l LE squamous cell carcinoma of
the skin, HTN, HLD, Hx of alcohol abuse, RA with Raynaud, elevated PSA, recently discharged from [facility] in [facility], where he was managed for R hip Fx and b/l LE cellulitis as well as worsening on RLE wound, started on Ciprofloxacin by
, then sent to [facility] rehab. Had blood test done in rehab showing worsening of his kidney function, so he was sent to the hospital. Also found hyponatremia. Started on HD via non-tunneled catheter with expectation for eventual kidney
function recovery and continued on Abx for LE vascular wounds
Impression:
Acute renal failure unknown etiology
Hyperkalemic
Symptomatic hyponatremia.
Other conditions:
Right hip fracture femoral neck with displaced status post IRF early November 2023.
Spacer and placement
Chronic lower extremity wounds
PAD with recent angioplasty left superficial femoral artery stenosis 09/09
RA previously on Remicade last infusion 03/11
BPH.
Dyslipidemia.
Alcohol use disorder stopped October 2023.
Chronic microcytic anemia
Benign hypertension.
Plan:
#LISANDRO 2/2 most likely AIN
#hyponatremias
#hyperkalemia
nephrology mgmt: initiate HD
s/p 3% saline on 12/20/23
Serial BMP - target sodium increase by 6-8meq per 24h
#b/l le cellulitis with venous stasis wounds, L worse then R
#Pyoderma gangrenosum ruled out
Was growing MRSA and pseudomonas in [facility] and planned to continue on Cipro upon d/c
As per conversation with - plan was to clear the infection before further attempted R hip VERNON
Will start renally dosed Cefepime for previous cellulitis, if HD initiated - increase dosage to 1g q24h, check wound Cx. ID follows - Janetto added. Initially was on Cipro -12/18/23
Podiatry eval
wound care
Stopped Remicade in Feb 2024
Biopsy x2 in [facility] concluded that LE wounds due to vascular insufficiency
#Acute on chronic anemia 2/2 chronic blood loss via LE wounds and LISANDRO
Epo as per Nephro
follow HGb
No SANDIP, folate or B12 deficiency found
#BPH
now with Elizabeth
#HLD
cont rosuvastatin eventually
#R hip Fx
previously post-OP after temporary ball placement
Planned for eventual VERNON, when LE cellulitis improves
Patient would like second opinion on DH - ortho consult
#RA with Raynaud
cont outpatient mgmt upon d/c
#Chronic microcytic anemia
#PVD s/p balloon angio
#Neuropathy
cont home meds when possible
VascSX consult: Patient wishes to f/u at [facility] with his team there regarding wounds
US for DVT pending
#Hypokalemia- monitor replete
#b/l LE skin CA
follows in [facility]
DVT ppx hep
FUll code
Update 12/29 and 12/30: F/u BMP off HD
Anticipated Discharge: 24 - 48 hours
Subjective/Interval History
-
Date of Service: January 01, 2024
Objective Data
-
Labs:
Laboratory Results
01/01/24
07:44
WBC 9.6
Hgb 8.1 L
Hct 25.2 L
Plt Count
Sodium 137
Potassium 3.4 L
Chloride 99
Carbon Dioxide 28
BUN 15
Creatinine 2.3 H
Glucose 95
Calcium 8.9
Vital Signs:
Vital Signs
Temp Pulse Resp BP Pulse Ox
98.7 F 70 17 132/60 100
01/01/24 15:15 01/01/24 15:15 01/01/24 15:15 01/01/24 15:15 01/01/24 15:15
I&O
12/31/23 01/01/24 01/02/24
06:59 06:59 06:59
Intake Total 1320 / 1320 1500 / 1500
Output Total 1050 / 1050 1400 / 1400
Balance 270 / 270 100 / 100
Physical Exam
-
General: No Apparent Distress
HEENT: Normocephalic
Respiratory: Clear to Auscultation
Cardiac: Regular Rhythm
GI: Soft, Nontender and Nondistended
Musculoskeletal: Other
Skin: Warm and Other (b/l le wounds)
Neuro: Awake, Alert, Oriented and AO x 3
Psych: Calm
[2024-01-01] MEDS: CRESTOR 40 MG PO (20:13)
[2024-01-01 23:51] VITALS: BP 140/63
[2024-01-02 06:00] VITALS: BMI 23.4
[2024-01-02 07:45] VITALS: BP 137/60
[2024-01-02] MEDS: HYDROPHOR 1 APPLIC TOPICAL ×2 (08:05→21:07)
[2024-01-02] MEDS: OCUVITE SOFTGEL PO (08:05)
[2024-01-02] MEDS: ULTRAVATE 0.05% TOPICAL (08:06)
[2024-01-02] MEDS: FLOMAX 0.4 MG PO (08:07)
[2024-01-02] MEDS: VITAMIN C 500 MG PO (08:07)
[2024-01-02] MEDS: THERAGRAN 1 TABLET PO (08:07)
[2024-01-02] MEDS: HEPARIN 5000 UNITS SC ×2 (08:07→21:06)
[2024-01-02] MEDS: NEURONTIN 100 MG PO ×3 (08:07→21:06)
[2024-01-02 09:17] LABS: Blood Urea Nitrogen 15 mg/dl (9-20); Carbon Dioxide 29 mmol/L (22-30); Chloride 98 mmol/L (98-107); Estimated Creatinine Clearance 40 ml/min; Glucose 92 mg/dl (70-99); Potassium 3.6 mmol/L (3.5-5.1); Sodium 136 mmol/L (135-145); eGFR 34.38
--- NOTE | 2024-01-02 14:18 | W.PN.NEPH.PH ---
Today's Communication / Plan
-
Pull temp HD catheter
Assessment/Plan
-
IMp:
Acute renal failure unclear etiology
Hyperkalemia
Asymptomatic hyponatremia/Hx chronic hyponatremia
Right hip fracture femoral neck with displaced status post ORIF early November 2023
Prior alcohol abuse-stopped November 13, 2023
Microcytic anemia
HTN�benign
Left lower extremity cellulitis chronic ulcerations dx 01/2023 /Hx pyoderma gangrenosum BX 2019
PVD-recent angioplasty left superficial femoral artery stenosis 09/02/2022
Hx Large right lower extremity ulceration with tendon visualization/increased peripheral edema RLE
History Left lower extremity ulcerations-Status post debridement and skin grafting of both lower extremities June 2023 at [facility]
Hx RA-Was on Remicade with last infusion February 2023
History of squamous cell CA bilateral legs 2019 treated at [facility]
BPH/elevated PSA Hx
HLD
Raynaud's bilateral hands
Plan:
no HD since last week
creatinine down to 2 and non oliguric
follow BMP trend
will pull HD catheter
We will add back low-dose losartan once creatinine nadirs
-
-
Date of Service: January 02, 2024
CC / HPI / ROS
-
Chief Complaint:
LISANDRO
History of Present Illness:
s/p HD 12/27
Down to 2
Hemodynamically stable
nonoliguric without goldsmith
Review of Systems:
No fever
Nonoliguric
No chest pain or shortness of breath
feels well
Labs
-
Labs:
WBC 9.6 10^3/uL (4.8-10.8) 01/01/24 07:44
RBC 3.35 10^6/uL (4.70-6.10) L 01/01/24 07:44
Hgb 8.1 g/dL (13.0-18.0) L 01/01/24 07:44
Hct 25.2 % (39.0-52.0) L 01/01/24 07:44
Plt Count 10^3/uL (130-400) 01/01/24 07:44
Sodium 136 mmol/L (135-145) 01/02/24 08:24
Potassium 3.6 mmol/L (3.5-5.1) 01/02/24 08:24
Chloride 98 mmol/L (98-107) 01/02/24 08:24
Carbon Dioxide 29 mmol/L (22-30) 01/02/24 08:24
BUN 15 mg/dl (9-20) 01/02/24 08:24
Creatinine 2.0 mg/dL (0.7-1.3) H 01/02/24 08:24
eGFR 34.38 01/02/24 08:24
Glucose 92 mg/dl (70-99) 01/02/24 08:24
Calcium 9.0 mg/dl (8.4-10.2) 01/02/24 08:24
Albumin 2.7 g/dl (3.5-5.0) L 12/26/23 05:05
Physical Exam
-
Vital Signs:
Vital Signs
Temp Pulse Resp BP Pulse Ox
99.3 F 78 18 137/60 97
01/02/24 07:45 01/02/24 07:45 01/02/24 07:45 01/02/24 07:45 01/02/24 07:45
Cardiovascular:: Regular rate and rhythm
Respiratory:: Bilateral: CTA
Lung Excursion:: Normal
Abdomen:: Nontender and Soft
Bowel Sounds:: Normal
Extremity Edema:: None: Bilateral:
--- NOTE | 2024-01-02 15:04 | CM ---
Patient seen bedside, discussed referrals sent for SNF, no HD upon discharge at this time. No beds at [place] until later in week, awaiting to hear from Steve Decker. Per Marcial Stewart, check in tomorrow regarding bed availability. Patient agreeable to
additional referrals sent. CM will continue to follow for all discharge planning needs.
Plan; SNF pending accepting facility.
[2024-01-02 15:56] VITALS: BP 149/64
--- NOTE | 2024-01-02 16:07 | W.PN.HOSP.TC ---
Today's Communication/Plan
-
Has been off HD with stable and improved creatinine.
Plan is for removal EGD access tomorrow.
Placement to [facility]pc facility baseline has been off antibiotics.
Assessment / Plan
Assessment / Plan
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
the skin, HTN, HLD, Hx of alcohol abuse, RA with Raynaud, elevated PSA, recently discharged from [facility] in [facility], where he was managed for R hip Fx and b/l LE cellulitis as well as worsening on RLE wound, started on Ciprofloxacin by
, then sent to [facility] rehab. Had blood test done in rehab showing worsening of his kidney function, so he was sent to the hospital. Also found hyponatremia. Started on HD via non-tunneled catheter with expectation for eventual kidney
function recovery and continued on Abx for LE vascular wounds
Impression:
Acute renal failure unknown etiology
Hyperkalemic
Symptomatic hyponatremia.
Other conditions:
Right hip fracture femoral neck with displaced status post IRF early November 2023.
Spacer and placement
Chronic lower extremity wounds
PAD with recent angioplasty left superficial femoral artery stenosis 09/09
RA previously on Remicade last infusion 03/11
BPH.
Dyslipidemia.
Alcohol use disorder stopped October 2023.
Chronic microcytic anemia
Benign hypertension.
Plan:
#LISANDRO 2/2 most likely AIN
#hyponatremias
#hyperkalemia
nephrology mgmt: initiate HD
s/p 3% saline on 12/20/23
Serial BMP - target sodium increase by 6-8meq per 24h
#b/l le cellulitis with venous stasis wounds, L worse then R
#Pyoderma gangrenosum ruled out
Was growing MRSA and pseudomonas in [facility] and planned to continue on Cipro upon d/c
As per conversation with - plan was to clear the infection before further attempted R hip VERNON
Will start renally dosed Cefepime for previous cellulitis, if HD initiated - increase dosage to 1g q24h, check wound Cx. ID follows - Vanco added. Initially was on Cipro -12/18/23
Podiatry eval
wound care
Stopped Remicade in Feb 2024
Biopsy x2 in [facility] concluded that LE wounds due to vascular insufficiency
#Acute on chronic anemia 2/2 chronic blood loss via LE wounds and LISANDRO
Epo as per Nephro
follow HGb
No SANDIP, folate or B12 deficiency found
#BPH
now with Elizabeth
#HLD
cont rosuvastatin eventually
#R hip Fx
previously post-OP after temporary ball placement
Planned for eventual VERNON, when LE cellulitis improves
Patient would like second opinion on DH - ortho consult
#RA with Raynaud
cont outpatient mgmt upon d/c
#Chronic microcytic anemia
#PVD s/p balloon angio
#Neuropathy
cont home meds when possible
VascSX consult: Patient wishes to f/u at [facility] with his team there regarding wounds
US for DVT pending
#Hypokalemia- monitor replete
#b/l LE skin CA
follows in [facility]
DVT ppx hep
FUll code
Update 12/29 and 12/30: F/u BMP off HD
Anticipated Discharge: 24 - 48 hours
Subjective/Interval History
-
Date of Service: January 02, 2024
Objective Data
-
Labs:
Laboratory Results
01/02/24
08:24
Sodium 136
Potassium 3.6
Chloride 98
Carbon Dioxide 29
BUN 15
Creatinine 2.0 H
Glucose 92
Calcium 9.0
Vital Signs:
Vital Signs
Temp Pulse Resp BP Pulse Ox
98.6 F 71 19 149/64 98
01/02/24 15:56 01/02/24 15:56 01/02/24 15:56 01/02/24 15:56 01/02/24 15:56
I&O
01/01/24 01/02/24 01/03/24
06:59 06:59 06:59
Intake Total 1500 / 1500 1560 / 1560
Output Total 1400 / 1400 2099 / 2099
Balance 100 / 100 -540 / -540
Physical Exam
-
General: No Apparent Distress
HEENT: Normocephalic
Respiratory: Clear to Auscultation
Cardiac: Regular Rhythm
GI: Soft, Nontender and Nondistended
Musculoskeletal: Other
Skin: Warm and Other (b/l le wounds)
Neuro: Awake, Alert, Oriented and AO x 3
Psych: Calm
[2024-01-02] MEDS: ULTRAM 50 MG PO (18:43)
[2024-01-02] MEDS: CRESTOR 40 MG PO (21:07)
[2024-01-02 23:49] VITALS: BP 147/69
[2024-01-03] MEDS: ULTRAM 50 MG PO ×2 (04:07→15:51)
--- NOTE | 2024-01-03 04:40 | DOWNTIME ---
There was a [employer] Human Resource Statistician Downtime on 01/03/2024 from 0100 to 01/03/2024 at 0355. Downtime documentation of patient's care, including medication administrations, has been reconciled in the electronic record per guidelines. Refer to the
patient's paper chart under the miscellaneous tab to see printed paper medication records and downtime forms.
[2024-01-03 06:00] VITALS: BMI 23.9
[2024-01-03 07:36] VITALS: BP 121/61
[2024-01-03 08:47] LABS: Blood Urea Nitrogen 17 mg/dl (9-20); Calcium 8.7 mg/dl (8.4-10.2); Carbon Dioxide 26 mmol/L (22-30); Chloride 98 mmol/L (98-107); Estimated Creatinine Clearance 42 ml/min; Glucose 90 mg/dl (70-99); Potassium 3.2 mmol/L (3.5-5.1); Sodium 134 mmol/L (135-145); eGFR 36.56
[2024-01-03] MEDS: HEPARIN 5000 UNITS SC (09:49)
[2024-01-03] MEDS: THERAGRAN 1 TABLET PO (09:50)
[2024-01-03] MEDS: FLOMAX 0.4 MG PO (09:50)
[2024-01-03] MEDS: VITAMIN C 500 MG PO (09:51)
[2024-01-03] MEDS: NEURONTIN 100 MG PO ×2 (09:51→14:58)
[2024-01-03] MEDS: OCUVITE SOFTGEL PO (09:52)
[2024-01-03] MEDS: HYDROPHOR 1 APPLIC TOPICAL (09:52)
[2024-01-03] MEDS: ULTRAVATE 0.05% TOPICAL (09:53)
--- NOTE | 2024-01-03 11:41 | CM ---
CM spoke with Jessica at [facility], able to accept patient for short term rehab today. Patient seen bedside, discussed [facility] can accept patient, offer private room. Patient agreeable to discharge to SNF. IMM reviewed, signed, placed in chart. 4:00
p.m. ambulance transport scheduled. Update to Nurse and Hospitalist. CM will continue to follow for all discharge planning needs.
Plan; [facility] SNF, 4:00 p.m.
P: [phone]
F: [phone]
--- NOTE | 2024-01-03 12:13 | W.PN.NEPH.PH ---
Today's Communication / Plan
-
follow BMP
Assessment/Plan
-
IMp:
Acute renal failure unclear etiology
Hyperkalemia
Asymptomatic hyponatremia/Hx chronic hyponatremia
Right hip fracture femoral neck with displaced status post ORIF early November 2023
Prior alcohol abuse-stopped November 13, 2023
Microcytic anemia
HTN�benign
Left lower extremity cellulitis chronic ulcerations dx 01/2023 /Hx pyoderma gangrenosum BX 2019
PVD-recent angioplasty left superficial femoral artery stenosis 09/02/2022
Hx Large right lower extremity ulceration with tendon visualization/increased peripheral edema RLE
History Left lower extremity ulcerations-Status post debridement and skin grafting of both lower extremities June 2023 at [facility]
Hx RA-Was on Remicade with last infusion February 2023
History of squamous cell CA bilateral legs 2019 treated at [facility]
BPH/elevated PSA Hx
HLD
Raynaud's bilateral hands
Plan:
follow BMP
no ARB for now
-
-
Date of Service: January 03, 2024
CC / HPI / ROS
-
Chief Complaint:
LISANDRO
History of Present Illness:
s/p HD 12/27
LISANDRO/Cr down to 1.9
Hemodynamically stable
nonoliguric without goldsmith
Review of Systems:
No fever
Nonoliguric
No chest pain or shortness of breath
feels well
Labs
-
Labs:
WBC 9.6 10^3/uL (4.8-10.8) 01/01/24 07:44
RBC 3.35 10^6/uL (4.70-6.10) L 01/01/24 07:44
Hgb 8.1 g/dL (13.0-18.0) L 01/01/24 07:44
Hct 25.2 % (39.0-52.0) L 01/01/24 07:44
Plt Count 10^3/uL (130-400) 01/01/24 07:44
Sodium 134 mmol/L (135-145) L 01/03/24 07:42
Potassium 3.2 mmol/L (3.5-5.1) L 01/03/24 07:42
Chloride 98 mmol/L (98-107) 01/03/24 07:42
Carbon Dioxide 26 mmol/L (22-30) 01/03/24 07:42
BUN 17 mg/dl (9-20) 01/03/24 07:42
Creatinine 1.9 mg/dL (0.7-1.3) H 01/03/24 07:42
eGFR 36.56 01/03/24 07:42
Glucose 90 mg/dl (70-99) 01/03/24 07:42
Calcium 8.7 mg/dl (8.4-10.2) 01/03/24 07:42
Albumin 2.7 g/dl (3.5-5.0) L 12/26/23 05:05
Physical Exam
-
Vital Signs:
Vital Signs
Temp Pulse Resp BP Pulse Ox
97.9 F 67 19 121/61 98
01/03/24 07:36 01/03/24 07:36 01/03/24 07:36 01/03/24 07:36 01/03/24 07:36
Cardiovascular:: Regular rate and rhythm
Respiratory:: Bilateral: CTA
Lung Excursion:: Normal
Abdomen:: Nontender and Soft
Bowel Sounds:: Normal
Extremity Edema:: None: Bilateral:
--- NOTE | 2024-01-03 14:54 | W.DS.TRANS ---
DC Summary - Marking Stitcher
-
Discharge Instructions:
Discharge Diagnosis/Procedures Impression:
Acute renal failure unknown etiology
Hyperkalemic
Symptomatic hyponatremia.
Other conditions:
Right hip fracture femoral neck with displaced
status post IRF early November 2023.
Spacer and placement
Chronic lower extremity wounds
PAD with recent angioplasty left superficial
femoral artery stenosis 09/09
RA previously on Remicade last infusion 03/11
BPH.
Dyslipidemia.
Alcohol use disorder stopped October 2023.
Chronic microcytic anemia
Benign hypertension.
Diet Regular
Instructions:
Stand-Alone Forms:
Changes to Home Medications: Yes
Discharge Medications:
DC Medications w/original date entered in [employer]
ascorbic acid (vitamin C) 500 mg tablet (Vitamin C) 500 mg PO DAILY Supplement 02/06/23
therapeutic multivitamin 1 tab PO DAILY Supplement 02/06/23
acetaminophen 325 mg tablet (Tylenol) 650 mg PO Q4HPRN PRN mild pain 12/19/23
aspirin 81 mg tablet,delayed release 81 mg PO BID Blood Clot Prevention/Tx 12/19/23
bisacodyl 10 mg rectal suppository (Dulcolax (bisacodyl)) 10 mg AR DAILYPRN PRN if no bm aftr mom 12/19/23
clobetasol 0.05 % topical ointment 1 applic topical DAILY eczema,psoriasis,rash 12/19/23
docusate sodium 100 mg capsule (Colace) 100 mg PO DAILY Constipation 12/19/23
rosuvastatin 40 mg tablet (Crestor) 40 mg PO HS High Cholesterol 12/19/23
sodium phosphates 19 gram-7 gram/118 mL enema (Fleet Enema) 118 ml AR DAILYPRN PRN if no bm aftr dulcolax 12/19/23
tamsulosin 0.4 mg capsule (Flomax) 0.4 mg PO DAILY Urinary Issue 12/19/23
vitamins A,C,G-qikp-axdhtk 2,148 mcg-113 mg-45 mg-17.4 mg tablet (PreserVision AREDS) 1 tab PO DAILY Supplement 12/19/23
gabapentin 100 mg capsule 100 mg PO TID #90 caps 01/03/24
tramadol 50 mg tablet 50 mg PO Q6HPRN PRN mild/ mod pain #20 tabs 01/03/24
Home Medication Changes
Losartan, ibuprofen, oxycodone had been discontinued.
Pending Results: No
[2024-01-03 14:58] VITALS: BP 162/72
== END 2024-01-03 16:30 | DRG 683 ==
LOC: 4 WEST ACU 15:08
PROVIDERS: Clinical Nurse Specialist Family Health; Internal Medicine; Internal Medicine Infectious Disease; Physician Assistant; Radiology Vascular & Interventional Radiology; Specialist; ADMITTING PHYSICIAN Internal Medicine; ATTENDING PHYSICIAN Internal Medicine; CONSULT PHYSICIAN Internal Medicine; CONSULT PHYSICIAN Podiatrist Foot & Ankle Surgery; EMERGENCY PHYSICIAN Student in an Organized Health Care Education/Training Program; FAMILY PHYSICIAN Family Medicine; OTHER PHYSICIAN Internal Medicine Infectious Disease; OTHER PHYSICIAN Surgery Vascular Surgery
PROC: 5A1D70Z Performance of Urinary Filtration, Intermittent, Less than 6 Hours Per Day (ICD-10-PCS; 2023-12-22)
PROC: 02H633Z Insertion of Infusion Device into Right Atrium, Percutaneous Approach (ICD-10-PCS; 2023-12-22)
DX: N17.0 Acute kidney failure with tubular necrosis (principal); E87.1 Hypo-osmolality and hyponatremia; E87.20 Acidosis, unspecified; L03.116 Cellulitis of left lower limb; L97.929 Non-pressure chronic ulcer of unspecified part of left lower leg with unspecified severity; L97.919 Non-pressure chronic ulcer of unspecified part of right lower leg with unspecified severity; L03.115 Cellulitis of right lower limb; E66.9 Obesity, unspecified; F10.11 Alcohol abuse, in remission; I10 Essential (primary) hypertension; M06.9 Rheumatoid arthritis, unspecified; I70.202 Unspecified atherosclerosis of native arteries of extremities, left leg; D50.0 Iron deficiency anemia secondary to blood loss (chronic); E87.8 Other disorders of electrolyte and fluid balance, not elsewhere classified; E78.00 Pure hypercholesterolemia, unspecified; E87.5 Hyperkalemia; N10 Acute pyelonephritis; I25.10 Atherosclerotic heart disease of native coronary artery without angina pectoris; I73.00 Raynaud's syndrome without gangrene; I87.2 Venous insufficiency (chronic) (peripheral); I87.8 Other specified disorders of veins; K59.00 Constipation, unspecified; M10.9 Gout, unspecified; G62.9 Polyneuropathy, unspecified; N40.0 Benign prostatic hyperplasia without lower urinary tract symptoms; M79.89 Other specified soft tissue disorders; M25.78 Osteophyte, vertebrae; L40.9 Psoriasis, unspecified; L30.9 Dermatitis, unspecified; L01.00 Impetigo, unspecified; Z91.81 History of falling; Z79.82 Long term (current) use of aspirin; Z79.620 Long term (current) use of immunosuppressive biologic; Z79.899 Other long term (current) drug therapy; Z87.81 Personal history of (healed) traumatic fracture; Z85.828 Personal history of other malignant neoplasm of skin; Z87.891 Personal history of nicotine dependence; Z88.6 Allergy status to analgesic agent; Z82.49 Family history of ischemic heart disease and other diseases of the circulatory system; Z86.19 Personal history of other infectious and parasitic diseases; Z86.14 Personal history of Methicillin resistant Staphylococcus aureus infection; Z96.641 Presence of right artificial hip joint
CPT/HCPCS: 36558; 71046; 73620; 76770; 76937; 77001; 80048; 80053; 80202; 81003; 81099; 82570; 82607; 82728; 82746; 83540; 83550; 83735; 83930; 83935; 84156; 84300; 84443; 85025; 85027; 85610; 86704; 86706; 86803; 87070; 87205; 87340; 93005; 93922; 93925; 97163; 97167; 97530; 97535; 99285; C1752; G0257; J2916; P9047; Q5106

== ENCOUNTER → 2024-01-08 10:06 | Outpatient (REF) | payer MEDICARE, SELFPAY ==
[2024-01-08 10:53] LABS: % Basophils 0.8 % (0-2); % Eosinophils 9.6 % (0-6); % Immature Granulocytes 0.1 % (0-0.5); % Lymphocytes 38.7 % (20.5-51.1); % Monocytes 12.5 % (1.7-9.3); % Neutrophils 38.3 % (42.2-75.2); Absolute Basophils 0.1 10^3/uL (0-0.2); Absolute Eosinophils 0.7 10^3/uL (0-0.7); Absolute Lymphocytes 2.8 10^3/uL (1.2-3.4); Absolute Monocytes 0.9 10^3/uL (0.1-0.6); Absolute Neutrophils 2.8 10^3/uL (1.4-6.5); Hemoglobin 7.6 g/dL (13.0-18.0); Mean Corp Hgb Conc. 31.7 g/dL (33.0-37.0); Mean Corpuscular Hgb 24.2 pg (27.0-31.0); Mean Corpuscular Volume 76.4 fL (80.0-94.0); Nucleated Red Blood Cells % 0 % (-); Platelet Count 291 10^3/uL (130-400); Red Blood Cell Count 3.14 10^6/uL (4.70-6.10); Red Cell Dist. Width 18.6 % (11.5-14.5); White Blood Cell Count 7.2 10^3/uL (4.8-10.8)
[2024-01-08 11:17] LABS: Blood Urea Nitrogen 14 mg/dl (9-20); Calcium 8.8 mg/dl (8.4-10.2); Carbon Dioxide 27 mmol/L (22-30); Chloride 101 mmol/L (98-107); Glucose 94 mg/dl (70-99); Potassium 3.2 mmol/L (3.5-5.1); Sodium 138 mmol/L (135-145); eGFR 57.65
== END ==
LOC: OLABP 10:06
PROVIDERS: ATTENDING PHYSICIAN Family Medicine
DX: D64.9 Anemia, unspecified (principal); E87.1 Hypo-osmolality and hyponatremia; E87.5 Hyperkalemia; S72.001D Fracture of unspecified part of neck of right femur, subsequent encounter for closed fracture with routine healing; I10 Essential (primary) hypertension; L03.115 Cellulitis of right lower limb
CPT/HCPCS: 36415; 80048; 85025

== ENCOUNTER → 2024-01-09 11:40 | Outpatient (REF) | payer MEDICARE, SELFPAY ==
[2024-01-09 12:32] LABS: % Basophils 0.9 % (0-2); % Immature Granulocytes 0.2 % (0-0.5); % Lymphocytes 32.1 % (20.5-51.1); % Monocytes 9.9 % (1.7-9.3); % Neutrophils 49.9 % (42.2-75.2); Absolute Basophils 0.1 10^3/uL (0-0.2); Absolute Eosinophils 0.7 10^3/uL (0-0.7); Absolute Lymphocytes 3.2 10^3/uL (1.2-3.4); Hematocrit 25.4 % (39.0-52.0); Mean Corp Hgb Conc. 31.5 g/dL (33.0-37.0); Mean Corpuscular Volume 76.3 fL (80.0-94.0); Mean Platelet Volume 9.1 fL (7.4-10.4); Nucleated Red Blood Cells % 0 % (-); Platelet Count 340 10^3/uL (130-400); Red Blood Cell Count 3.33 10^6/uL (4.70-6.10); Red Cell Dist. Width 18.5 % (11.5-14.5); White Blood Cell Count 9.9 10^3/uL (4.8-10.8)
== END ==
LOC: OLABPV 11:40
PROVIDERS: ATTENDING PHYSICIAN Family Medicine
DX: D64.9 Anemia, unspecified (principal); E87.1 Hypo-osmolality and hyponatremia; E89.5 Postprocedural testicular hypofunction; L03.115 Cellulitis of right lower limb; L03.116 Cellulitis of left lower limb
CPT/HCPCS: 36415; 85025

== ENCOUNTER → 2024-01-19 10:39 | Outpatient (REF) | payer OTHER, MEDICARE, SELFPAY ==
[2024-01-19 11:21] LABS: Hematocrit 24.4 % (39.0-52.0); Hemoglobin 7.7 g/dL (13.0-18.0); Mean Corp Hgb Conc. 31.6 g/dL (33.0-37.0); Mean Platelet Volume 9.5 fL (7.4-10.4); Platelet Count 330 10^3/uL (130-400); Red Blood Cell Count 3.21 10^6/uL (4.70-6.10); Red Cell Dist. Width 18.6 % (11.5-14.5); White Blood Cell Count 9.8 10^3/uL (4.8-10.8)
[2024-01-19 11:25] LABS: Blood Urea Nitrogen 18 mg/dl (9-20); Calcium 8.9 mg/dl (8.4-10.2); Carbon Dioxide 27 mmol/L (22-30); Chloride 102 mmol/L (98-107); Glucose 89 mg/dl (70-99); Potassium 3.4 mmol/L (3.5-5.1); Sodium 138 mmol/L (135-145); eGFR > 60.00
== END ==
LOC: OLABP 10:39
PROVIDERS: ATTENDING PHYSICIAN Family Medicine
DX: D64.9 Anemia, unspecified (principal); E87.1 Hypo-osmolality and hyponatremia; E89.5 Postprocedural testicular hypofunction; S72.002D Fracture of unspecified part of neck of left femur, subsequent encounter for closed fracture with routine healing; L03.115 Cellulitis of right lower limb; L03.116 Cellulitis of left lower limb
CPT/HCPCS: 36415; 80048; 85027

== ENCOUNTER → 2024-01-26 10:40 | Outpatient (REF) | payer OTHER, MEDICARE, SELFPAY ==
[2024-01-26 12:51] LABS: % Basophils 0.5 % (0-2); % Eosinophils 11.3 % (0-6); % Immature Granulocytes 0.4 % (0-0.5); % Lymphocytes 30.6 % (20.5-51.1); % Neutrophils 46.2 % (42.2-75.2); Absolute Basophils 0.1 10^3/uL (0-0.2); Absolute Eosinophils 1.2 10^3/uL (0-0.7); Absolute Lymphocytes 3.3 10^3/uL (1.2-3.4); Absolute Monocytes 1.2 10^3/uL (0.1-0.6); Hematocrit 25.4 % (39.0-52.0); Hemoglobin 8.2 g/dL (13.0-18.0); Mean Corp Hgb Conc. 32.3 g/dL (33.0-37.0); Mean Corpuscular Hgb 24.9 pg (27.0-31.0); Mean Corpuscular Volume 77.2 fL (80.0-94.0); Mean Platelet Volume 9.4 fL (7.4-10.4); Nucleated Red Blood Cells % 0 % (-); Platelet Count 257 10^3/uL (130-400); Red Blood Cell Count 3.29 10^6/uL (4.70-6.10); Red Cell Dist. Width 17.9 % (11.5-14.5); White Blood Cell Count 10.8 10^3/uL (4.8-10.8)
== END ==
LOC: OLABP 10:40
PROVIDERS: ATTENDING PHYSICIAN Family Medicine
DX: D64.9 Anemia, unspecified (principal); E87.1 Hypo-osmolality and hyponatremia; E89.5 Postprocedural testicular hypofunction; S72.002D Fracture of unspecified part of neck of left femur, subsequent encounter for closed fracture with routine healing; I10 Essential (primary) hypertension; L03.115 Cellulitis of right lower limb; L03.116 Cellulitis of left lower limb
CPT/HCPCS: 36415; 85025

== ENCOUNTER → 2024-02-12 11:21 | Outpatient (REF) | payer OTHER, MEDICARE, SELFPAY ==
[2024-02-12 12:04] LABS: % Basophils 0.6 % (0-2); % Eosinophils 5.4 % (0-6); % Immature Granulocytes 0.2 % (0-0.5); % Lymphocytes 28.1 % (20.5-51.1); % Monocytes 11.2 % (1.7-9.3); % Neutrophils 54.5 % (42.2-75.2); Absolute Basophils 0.1 10^3/uL (0-0.2); Absolute Eosinophils 0.7 10^3/uL (0-0.7); Absolute Lymphocytes 3.5 10^3/uL (1.2-3.4); Absolute Monocytes 1.4 10^3/uL (0.1-0.6); Absolute Neutrophils 6.8 10^3/uL (1.4-6.5); Hematocrit 31.2 % (39.0-52.0); Hemoglobin 9.7 g/dL (13.0-18.0); Mean Corp Hgb Conc. 31.1 g/dL (33.0-37.0); Mean Corpuscular Hgb 24.6 pg (27.0-31.0); Mean Platelet Volume 9.1 fL (7.4-10.4); Nucleated Red Blood Cells % 0 % (-); Platelet Count 384 10^3/uL (130-400); Red Blood Cell Count 3.95 10^6/uL (4.70-6.10); Red Cell Dist. Width 18.5 % (11.5-14.5); White Blood Cell Count 12.5 10^3/uL (4.8-10.8)
[2024-02-12 12:07] LABS: Blood Urea Nitrogen 15 mg/dl (9-20); Carbon Dioxide 30 mmol/L (22-30); Chloride 95 mmol/L (98-107); Glucose 104 mg/dl (70-99); Potassium 3.7 mmol/L (3.5-5.1); Sodium 136 mmol/L (135-145); eGFR 57.65
== END ==
LOC: OLABP 11:21
PROVIDERS: ATTENDING PHYSICIAN Family Medicine
DX: D64.9 Anemia, unspecified (principal); E87.1 Hypo-osmolality and hyponatremia; E87.5 Hyperkalemia; S72.002D Fracture of unspecified part of neck of left femur, subsequent encounter for closed fracture with routine healing; I10 Essential (primary) hypertension; L03.115 Cellulitis of right lower limb; L03.116 Cellulitis of left lower limb
CPT/HCPCS: 36415; 80048; 85025

== ENCOUNTER → 2024-02-14 10:03 | Outpatient (REF) | payer OTHER, MEDICARE, SELFPAY ==
[2024-02-14 11:29] LABS: % Basophils 0.3 % (0-2); % Immature Granulocytes 0.3 % (0-0.5); % Lymphocytes 21.4 % (20.5-51.1); % Monocytes 11.3 % (1.7-9.3); % Neutrophils 62.7 % (42.2-75.2); Absolute Basophils 0.1 10^3/uL (0-0.2); Absolute Eosinophils 0.6 10^3/uL (0-0.7); Absolute Lymphocytes 3.1 10^3/uL (1.2-3.4); Absolute Monocytes 1.6 10^3/uL (0.1-0.6); Hematocrit 26.1 % (39.0-52.0); Hemoglobin 8.5 g/dL (13.0-18.0); Mean Corp Hgb Conc. 32.6 g/dL (33.0-37.0); Mean Corpuscular Hgb 25.1 pg (27.0-31.0); Mean Platelet Volume 9.4 fL (7.4-10.4); Nucleated Red Blood Cells % 0 % (-); Platelet Count 338 10^3/uL (130-400); Red Blood Cell Count 3.39 10^6/uL (4.70-6.10); Red Cell Dist. Width 18.3 % (11.5-14.5); White Blood Cell Count 14.4 10^3/uL (4.8-10.8)
== END ==
LOC: OLABN 10:03
PROVIDERS: ATTENDING PHYSICIAN Family Medicine
DX: D64.9 Anemia, unspecified (principal); E87.1 Hypo-osmolality and hyponatremia; E87.5 Hyperkalemia; I10 Essential (primary) hypertension; L03.115 Cellulitis of right lower limb
CPT/HCPCS: 36415; 85025